=== PATIENT | male | born 1965 | race Caucasian/White ===

== ENCOUNTER 2023-02-26 18:57 | Inpatient (IN) | payer MEDICAID ==
[2023-02-26 19:31] LABS: BASOPHILS % (AUTO) 0.4 %; EOSINOPHILS % (AUTO) 0.4 %; LYMPHOCYTES # (AUTO) 1.9 10^3/uL (1.5-3.5); LYMPHOCYTES % (AUTO) 17.6 %; MEAN CORPUSCULAR HEMOGLOBIN 23.9 pg (27.0-31.0); MEAN CORPUSCULAR HGB CONC 25.8 g/dL (32.0-36.0); MEAN CORPUSCULAR VOLUME 92.6 fL (80.0-94.0); MEAN PLATELET VOLUME 9.9 fL (7.4-11.4); MONOCYTES # (AUTO) 1.3 10^3/uL (0.0-1.0); MONOCYTES % (AUTO) 12.5 %; NEUTROPHILS # (AUTO) 7.3 10^3/uL (1.5-6.6); NEUTROPHILS % (AUTO) 68.4 %; PLT - PLATELET COUNT 139 10^3/uL (130-450); RED BLOOD COUNT 1.63 10^6/uL (4.70-6.10); RED CELL DISTRIBUTION WIDTH 33.6 % (12.0-15.0); WHITE BLOOD COUNT 10.6 x10^3/uL (4.8-10.8)
--- NOTE | 2023-02-26 19:31 | ED Physician Documentation ---
History of Present Illness - Stated complaint Stated Complaint: VOMITING - Chief complaint Chief Complaint: General - History obtained from History obtained from: Patient - Additonal information Additional information: This is a 57-year-old male who has a past medical history of alcoholism, who drinks approximately a pint of hard alcohol daily, who presents from the clinic due to concerns for jaundice, nausea and vomiting, hiccups, and fatigue. The patient had presented to an outside clinic where he was noted to be jaundiced and There is concern for dehydration as he was sent to the ER.. The patient states that he was not aware of the jaundice though his son (who he later states is not his son, but a friend) had pointed it out to him within the last week or so. He is unsure when it may have started. Over the course of the last week he has felt frequent hiccups and has had frequent episodes of nausea and vomiting. He has had coffee-ground emesis with his vomiting and is unsure of how many times he vomited. He has felt very weak and States he cannot walk more than 150 feet without feeling extremely exhausted. He denies any abdominal pain however and has not had a fever or chills, no chest pain or difficulty breathing, no diarrhea or constipation. He is incontinent of urine frequently With urgency and frequency but denies any dysuria or hematuria, no flank pain. The patient states he has had ultrasound on his liver in the past and has been told that he had fatty liver but to his knowledge He did not have cirrhosis. He Has never had an endoscopy, no known varices Though he has never seen a GI doctor. He has drank heavily for many years, previously did drink more and then stopped for period of time and then started again A year or 2 ago though at a lower amount. He has never had significant alcohol withdrawal and no alcohol withdrawal seizures.He states he drinks alcohol because he has severe underlying anxiety and it is the only thing that seems to help him.He denies any other drug use. Patient denies any other medical history, is not on any medications. He has not been seen for care in the area but states that he has received care in [place] in the past though not for alcohol or liver related issues. Review of Systems Constitutional: reports: Fatigue. denies: Fever, Chills, Myalgias, Weight Loss, Sweats Eyes: reports: Reviewed and negative Ears: reports: Reviewed and negative Nose: reports: Reviewed and negative Throat: reports: Reviewed and negative Cardiac: reports: Reviewed and negative Respiratory: reports: Reviewed and negative GI: reports: Abdominal Swelling, Nausea, Vomiting. denies: Abdominal Pain, Constipation, Diarrhea, Hematemesis, Bloody / black stool : reports: Frequency, Incontinent. denies: Dysuria, Hematuria Skin: reports: Other (Jaundice, Brown spots on his hands, easy bruising) Musculoskeletal: reports: Reviewed and negative Neurologic: reports: Generalized weakness. denies: Focal weakness, Numbness, Difficulty speaking, Near syncope, Syncope, Seizure, Confused, Altered mental status, Unresponsive, Headache, Head injury, LOC Psychiatric: reports: Anxiety. denies: Depressed, Suicidal, Homicidal, Hallucinations, Delusions Endocrine: reports: Reviewed and negative Immunocompromised: reports: Reviewed and negative PD PAST MEDICAL HISTORY - Past Medical History Past Medical History: Yes GI: Other (Fatty liver, suspected cirrhosis) Psych: Anxiety, Other (Alcoholism) - Present Medications Home Medications: Ambulatory Orders Medication Instructions Recorded Confirmed No Known Home Medications 02/26/23 02/26/23 - Allergies Allergies/Adverse Reactions: Allergies Allergy/AdvReac Type Severity Reaction Status Date / Time amoxicillin Allergy Hives Verified 02/26/23 21:27 PD ED PE NORMAL - Vitals Vital signs reviewed: Yes - General General: Alert and oriented X 3, No acute distress, Other (Jaundice, appears chronically ill, disheveled) - HEENT HEENT: Atraumatic, PERRL, EOMI, Moist mucous membranes, Other (Icteric) - Neck Neck: Supple, no meningeal sign, No adenopathy, No JVD - Cardiac Cardiac: No murmur, Strong equal pulses, Other (Tachycardic) - Respiratory Respiratory: No respiratory distress, Clear bilaterally - Abdomen Abdomen: Normal bowel sounds, Non tender, Non distended - Back Back: No CVA TTP, No spinal TTP - Derm Derm: Other (Jaundice, multiple bruises on arms, liver spots on the hands) - Extremities Extremities: No deformity, No tenderness to palpate, Normal ROM s pain, No edema, No calf tenderness / cord - Neuro Neuro: Alert and oriented X 3 Eye Opening: Spontaneous Motor: Obeys Commands Verbal: Oriented GCS Score: 15 - Psych Psych: Normal mood, Normal affect Results - Vitals Vitals: Vital Signs - 24 hr 02/26/23 02/26/23 02/26/23 19:09 20:01 21:12 Temperature 37.1 C 37.1 C Heart Rate 112 H 107 H Heart Rate [ 98 Monitoring electrodes] Respiratory 16 20 18 Rate Blood Pressure 126/65 122/54 L Blood Pressure 116/73 [Left] O2 Saturation 95 96 97 02/26/23 21:30 Temperature 37.1 C Heart Rate Heart Rate [ 94 Monitoring electrodes] Respiratory 20 Rate Blood Pressure Blood Pressure 118/76 [Left] O2 Saturation 97 Oxygen O2 Source Room air - Labs Labs: Laboratory Tests 02/26/23 02/26/23 02/26/23 19:24 19:24 19:24 WBC 10.6 RBC 1.63 L Hgb 3.9 L* Hct 15.1 L* MCV 92.6 MCH 23.9 L MCHC 25.8 L RDW 33.6 H Plt Count 139 MPV 9.9 Neut # (Auto) 7.3 H Lymph # (Auto) 1.9 [place] # (Auto) 1.3 H Eos # (Auto) 0.0 Baso # (Auto) 0.0 Absolute Nucleated RBC 0.00 Nucleated RBC % 0.0 Manual Slide Review Indicated Platelet Estimate NORMAL (130-450,000) Platelet Morphology NORMAL APPEARANCE RBC Morph Micro Appear 1+ ACANTHOCYTES PT 28.0 H INR 2.7 H Sodium 136 Potassium 2.9 L Chloride 101 Carbon Dioxide 21 Anion Gap 14.0 H BUN 12 Creatinine 0.8 Estimated GFR (MDRD) 99 Glucose 134 H Calcium 8.1 L Magnesium 1.6 L Total Bilirubin 9.1 H AST 67 H ALT 25 Alkaline Phosphatase 86 Total Protein 7.2 Albumin 2.0 L Globulin 5.2 H Albumin/Globulin Ratio 0.4 L Lipase 76 H Ethyl Alcohol 82.3 Blood Type Blood Type Recheck Antibody Screen Crossmatch IS Only 02/26/23 02/26/23 19:24 19:46 WBC RBC Hgb Hct MCV MCH MCHC RDW Plt Count MPV Neut # (Auto) Lymph # (Auto) [place] # (Auto) Eos # (Auto) Baso # (Auto) Absolute Nucleated RBC Nucleated RBC % Manual Slide Review Platelet Estimate Platelet Morphology RBC Morph Micro Appear PT INR Sodium Potassium Chloride Carbon Dioxide Anion Gap BUN Creatinine Estimated GFR (MDRD) Glucose Calcium Magnesium Total Bilirubin AST ALT Alkaline Phosphatase Total Protein Albumin Globulin Albumin/Globulin Ratio Lipase Ethyl Alcohol Blood Type O NEGATIVE Blood Type Recheck O NEGATIVE Antibody Screen NEGATIVE Crossmatch IS Only See Detail PD Medical Decision Making - ED course Complexity details: reviewed results, re-evaluated patient, considered differential, d/w patient, d/w licensed tax consultant ED course: 57-year-old male with a past medical history significant for chronic alcohol use presents with jaundice as well as nausea, vomiting, and weakness over the course of the last several weeks to months. He has had some hematemesis at home though none here. On arrival here, the patient is frail, chronically ill- appearing, jaundiced but awake and alert and conversant. We obtained labs which were significant for a hemoglobin of 3.9, platelets of 139. His chemistry is significant for a potassium of 2.9, magnesium of 1.6, bilirubin of 9.1 and add itional labs as above. There is concern for a upper GI bleed and the patient was started on Protonix as well as octreotide. He was consented for blood transfusion and 4 units of packed red blood cells were ordered and transfusion initiated. The patient was given IV magnesium and potassium replacement. Patient's MELD score was calculated at 26. I did discuss this case with the ED attending as well as our on-call surgeon, Dr. Bass who very kindly reviewed the case with me. Dr. Bass would like patient to receive transfusion before consideration of EGD and he is not available tomorrow for this procedure and patient may need possible banding, and additional GI consultation, therefore we will try to transfer the patient to a higher level of care. The patient currently is receiving PRBC transfusion as well as octreotide and Protonix and tolerating well. He has not had any ongoing hematemesis, he is hemodynamically stable. He has been signed out to the ED attending, Dr. Lopez, at the conclusion of my shift and is awaiting transfer to a facility with GI. We do not have an accepting facility yet. Departure - Departure Disposition: 02 Transfer Acute Care Hosp Clinical Impression: Liver disease due to alcohol, Acute blood loss anemia, Gastrointestinal hemorrhage with hematemesis, Hypomagnesemia, Hypokalemia
[2023-02-26 19:35] LABS: HCT - HEMATOCRIT 15.1 % (42.0-52.0); HGB - HEMOGLOBIN 3.9 g/dL (14.0-18.0)
[2023-02-26 19:38] LABS: INR 2.7 (0.8-1.2)
[2023-02-26] MEDS ORDERED: OCTREOTIDE 500 MCG in SODIUM CHLORIDE 0.9% 100ML 95 ML IV STA (19:48)
[2023-02-26] MEDS ORDERED: PANTOPRAZOLE 80 MG in SODIUM CHLORIDE 0.9% 100ML 100 ML IV STA (19:48)
[2023-02-26 20:05] LABS: PLATELET ESTIMATE, MANUAL NORMAL (130-450,000) (NORMAL); PLATELET MORPHOLOGY NORMAL APPEARANCE (NORMAL); SLIDE REVIEW? Indicated
[2023-02-26 20:12] LABS: ALBUMIN/GLOBULIN RATIO 0.4 (1.0-2.2); BILIRUBIN,TOTAL 9.1 mg/dL (0.2-1.0); CALCIUM 8.1 mg/dL (8.5-10.3); CREATININE 0.8 mg/dL (0.6-1.2); ETOH - ETHANOL 82.3 mg/dL; MAGNESIUM 1.6 mg/dL (1.7-2.8); POTASSIUM 2.9 mmol/L (3.5-5.0); TOTAL PROTEIN 7.2 g/dL (6.7-8.2)
[2023-02-26] MEDS ORDERED: POTASSIUM CHLOR 10 MEQ/100 ML 10 MEQ/100 ML BAG IV STA (20:35)
[2023-02-26] MEDS ORDERED: MAGNESIUM SULFATE 2 GRAM 2 GM/50 ML BAG IV ONE (20:35)
[2023-02-27 03:04] LABS: GLUCOSE, URINE (UA) NEGATIVE (NEGATIVE); KETONES,URINE (UA) NEGATIVE (NEGATIVE); LEUKOCYTE ESTERASE, URINE NEGATIVE (NEGATIVE); OCCULT BLOOD,URINE NEGATIVE (NEGATIVE); PH,URINE 5.5 PH (5.0-7.5); PROTEIN,URINE NEGATIVE (NEGATIVE)
[2023-02-27 03:09] LABS: CLARITY,URINE CLEAR (CLEAR)
[2023-02-27 03:12] LABS: BILIRUBIN,URINE NEGATIVE (NEGATIVE); ICTOTEST,URINE NEGATIVE
[2023-02-27] MEDS ORDERED: PHENobarbital 65 MG/ML VIAL IV STA (08:57)
[2023-02-27] MEDS ORDERED: LORazepam 2 MG/ML VIAL IVP STA (08:57)
[2023-02-27] MEDS ORDERED: SODIUM CHLORIDE 0.9% 1,000 ML IV STA (09:00)
[2023-02-27] MEDS ORDERED: OCTREOTIDE 500 MCG in SODIUM CHLORIDE 0.9% 100ML 95 ML IV STA (09:09)
[2023-02-27] MEDS ORDERED: cefTRIAXone 1 GM VIAL IVP STA (09:09)
[2023-02-27 09:42] LABS: HCT - HEMATOCRIT 24.4 % (42.0-52.0); HGB - HEMOGLOBIN 7.6 g/dL (14.0-18.0)
[2023-02-27 10:03] LABS: CALCIUM 7.9 mg/dL (8.5-10.3); CREATININE 0.7 mg/dL (0.6-1.2); MAGNESIUM 1.9 mg/dL (1.7-2.8); POTASSIUM 3.5 mmol/L (3.5-5.0)
[2023-02-27] MEDS ORDERED: LACTULOSE 10 GM /15 ML UDC PO STA (11:47)
--- NOTE | 2023-02-27 13:05 | ED Physician Documentation ---
ED Addendum - Addendum Addendum: 02/27/23 13:03 Please see prior notes. Briefly this is a 57-year-old alcoholic who came in for vomiting. Last night my partner had talked with the on-call surgeon, but he was not on-call today and did not know the capabilities of the surgeon who is on- call today. He has received 4 units of blood and has been on Protonix and octreotide drips. He is posttransfusion H&H came up appropriately. I spoke with Dr. Saldivar, the on-call surgeon who is happy to consult and do an endoscopy and also spoke with Dr. Duran at this time for admission Disposition: Admitted to ICU Condition: Serious
[2023-02-27] MEDS ORDERED: ONDANSETRON 4 MG/2 ML VIAL IVP PRN (13:40)
[2023-02-27] MEDS ORDERED: PHYTONADIONE 10 MG/ML AMP IVP STA (13:47)
[2023-02-27] MEDS ORDERED: PHYTONADIONE INJ (ADULT) 10 MG in SODIUM CHLORIDE 0.9% 50 ML IV STA (14:06)
--- NOTE | 2023-02-27 14:06 | HISTORY & PHYSICAL EXAMINATION ---
Chief Complaint - Chief Complaint Chief Complaint: episodes of bright red blood vomiting over the past month History of Present Illness - Admitted From Admitted From:: Emergency room - History Obtained From History obtained from: Patient and ER note - History of Present Illness HPI Comment/Other: This is a 57-year-old male with past medical history significant for alcohol dependence who drinks approximately a pint of rum daily sometimes varies. He presented to the emergency room with jaundice along with nausea vomiting intermittent vomiting of bright red blood more recently over the past few days. He denies any abdominal pain. He does note that over the past several months his abdomen is getting more distended. He does admit to intermittent black tarry stools. But none recently was noted by him. He has never gone through alcohol withdrawal program nor has history of GI bleeding. He presented to the emergency room with complaints of feeling very weak. He has not seen a doctor for many years. Labs are significant for initial hemoglobin of 3.9 and he was transfused 4 units of PRBCs and repeat hemoglobin is improved to7.6.Patient notes that his last dr ink was 2 days ago and his alcohol level in the emergency room was 88. INR is noted to be 2.7 with a PTT of 28.0 lipase 76 albumin 2.0 total bilirubin 9.1 alkaline phosphatase 86 ALT 25 AST 67 platelets 139 total protein 7.2. History - Past Medical History GI: reports: Other (Fatty liver, suspected cirrhosis) Psych: reports: Anxiety, Other (Alcoholism) MRSA Hx?: No Meds/Allgy - Home Medications Home Medications: Ambulatory Orders Medication Instructions Recorded Confirmed No Known Home Medications 02/26/23 02/26/23 - Allergies Allergies/Adverse Reactions: Allergies Allergy/AdvReac Type Severity Reaction Status Date / Time amoxicillin Allergy Hives Verified 02/26/23 21:27 Review of Systems - Gastrointestinal Gastrointestinal: reports: Abdominal distention, Black stools, Nausea, Asim blood emesis, Coffee grounds emesis, Poor appetite - Neurological Neurological: reports: General weakness - Psychiatric Psychiatric: reports: Anxiety - Other Findings Other Findings: All other systems are reviewed and are negative except for as in HPI. Exam - Vital Signs Reviewed Vital Signs: Yes Vital Signs: Vital Signs x48h Temp Pulse Pulse Resp BP BP Pulse Ox 02/27/23 13:24 37.1 C 83 18 131/79 H 92 02/27/23 12:03 85 18 114/74 89 L 02/27/23 11:33 36.7 C 84 16 113/73 90 L 02/27/23 11:20 83 16 123/74 90 L 02/27/23 10:58 85 18 122/76 92 02/27/23 10:57 36.7 C 85 18 122/76 92 02/27/23 10:39 36.6 C 86 18 122/76 92 02/27/23 10:26 88 20 125/79 93 02/27/23 09:55 87 18 126/78 90 L 02/27/23 09:19 83 18 135/74 H 91 L 02/27/23 08:33 37.2 C 79 18 116/74 94 02/27/23 08:07 83 18 122/76 91 L 02/27/23 08:06 83 18 122/76 90 L 02/27/23 06:30 88 126/75 95 02/27/23 06:29 36.9 C 87 19 124/68 96 02/27/23 06:10 37.3 C 94 18 120/74 96 - Physical Exam General Appearance: positive: Other (Patient is disheveled and is jaundiced. Patient is interactive and answers questions for the most part appropriately.) Eyes Bilateral: positive: Other (Scleral icterus present bilaterally) ENT: positive: Dry mucous membranes Neck: positive: Nml inspection Respiratory: positive: No respiratory distress Cardiovascular: positive: Tachycardia Abdomen: positive: Non-tender, Other (Distended but no tenderness to palpation) Back: positive: Nml inspection Skin: positive: Cyanosis, Other (Jaundiced) Neurologic/Psychiatric: positive: Oriented x3, Other (He does have some mild asterixis bilaterally) Conclusion/Plan - Problem List (1) Alcoholic hepatitis with ascites Conclusion/Plan: -Patient does have an elevated Madrey score but given his acute to subacute GI bleed patient is n.p.o. and would not be a candidate for steroids but will end up dosing pentoxifylline when is taking p.o. His moderate discriminate function is 87.3 suggesting poor prognosis. -We will check CT of abdomen and pelvis with IV contrast (2) Acute blood loss anemia Conclusion/Plan: -Appreciate general surgery consult who plans to take patient to the OR in a.m. sooner if there are acute problems -Patient was transfused and will monitor hemoglobin hematocrit and has remained remained stable since 4 units PRBC transfusions - will continue with IV octreotide drip along with IV Protonix drip. Also initiated Rocephin 1 g IV every 24 hours (3) Gastrointestinal hemorrhage with hematemesis Conclusion/Plan: See above for acute blood loss anemia which is secondary to gastrointestinal etiology -Patient will be covered with IV octreotide, IV Protonix and IV Rocephin for possibility of variceal bleed (4) Liver disease due to alcohol Conclusion/Plan: -Alcoholic liver disease and will check CT of abdomen with IV contrast -Patient does have ascites present also - will place on alcohol withdrawal protocol (5) Electrolyte abnormality Conclusion/Plan: Patient did present with hypokalemia and hypomagnesemia - will place on electrolyte repletion protocol and monitor labs (6) Hyperammonemia Conclusion/Plan: - will monitor ammonia level and mental status -Most likely elevated secondary to acute to subacute GI bleed (7) Elevated INR Conclusion/Plan: Secondary to liver disease. Given FFP and vitamin K in emergency room and will monitor need for further FFP. - Lab Results Fish Bones: 02/27/23 13:43 02/27/23 09:17 - EKG Results EKG Comparison: Other (EKG pending)
[2023-02-27] MEDS ORDERED: iohexoL-300 100 ML VIAL ONE (14:12)
[2023-02-27 14:18] LABS: CLARITY,URINE CLEAR (CLEAR); GLUCOSE, URINE (UA) NEGATIVE (NEGATIVE); KETONES,URINE (UA) TRACE mg/dL (NEGATIVE); LEUKOCYTE ESTERASE, URINE TRACE (NEGATIVE); NITRITE,URINE POSITIVE (NEGATIVE); OCCULT BLOOD,URINE NEGATIVE (NEGATIVE); PH,URINE 5.5 PH (5.0-7.5); PROTEIN,URINE TRACE mg/dL (NEGATIVE); UROBILINOGEN,URINE >=8.0 E.U./dL (NORMAL)
[2023-02-27 14:22] LABS: BILIRUBIN,URINE MODERATE (NEGATIVE); ICTOTEST,URINE POSITIVE
[2023-02-27 14:25] LABS: BACTERIA,URINE Few /HPF (None Seen); RBC,URINE 0-5 /HPF (0-5); SQUAMOUS EPITHELIAL CELL,UR RARE Squamous (<= Few); WBC,URINE 0-3 /HPF (0-3)
[2023-02-27] MEDS ORDERED: cefTRIAXone 1 GM in SODIUM CHLORIDE 0.9% MINIBAG 100 ML IV SCH (15:00)
--- NOTE | 2023-02-27 15:12 | PHARMACY PROGRESS NOTE ---
- Best Possible Medication History Admit Date and Time: 02/27/23 1340 Processed by: Nursing Medication History completed: Yes As the person ultimately responsible for medication therapy, providers are able to order a medication from an existing home medication list in [facility] via the "Reconcile Routine" prior to Confirmation of that medication by child support investigator. Such practice is discouraged except when the physician, in their clinical judgment, deems that a medical need exists for a medication without regard to previous use.
--- NOTE | 2023-02-27 15:13 | CONSULTATION NOTE ---
Surgery Consult - Admit Date Hospital Admission Date: 02/27/23 - Consult Date Consult Date: 02/27/23 - Chief Complaint Chief Complaint: Weakness, nausea, coffee ground emesis - Home Meds/Allergies Home Medications: Patient History Medication Instructions Recorded Confirmed No Known Home Medications 02/26/23 02/26/23 Allergies/Adverse Reactions: Allergies Allergy/AdvReac Type Severity Reaction Status Date / Time amoxicillin Allergy Hives Verified 02/26/23 21:27 - Vital Signs Vital Signs: Last Vital Signs Temp 98.7 F 02/27/23 13:24 Pulse 82 02/27/23 15:00 Resp 24 02/27/23 15:00 BP 119/83 H 02/27/23 15:00 Pulse Ox 93 02/27/23 15:00 O2 Flow Rate Intake & Output: Intake & Output 02/24/23 02/25/23 02/26/23 02/27/23 23:59 23:59 23:59 23:59 Intake Total 300 1155 Balance 300 1155 - Lab Results Result Diagrams: 02/27/23 13:43 02/27/23 09:17 - Consultation Note Consultation Note: General Surgery Consultation Note Assessment: 1) Acute on chronic anemia due to suspected UGI bleed 2) Liver cirrhosis 3) Alcoholism with hyperammonemia Recommendation: 1) IV PPI and Octreotide 2) Serial H&H, INR, Ammonia 3) NPO except ice chips until midnight, then NPO for procedure 4) CIWA protocol 5) EGD scheduled for tomorrow morning. This will give us some time to stabilize his anemia, reduce the hyperammonemia, correct the coagulopathy, and manage impending alcohol withdrawal. If he demonstrates active UGI bleeding tonight, emergent EGD will be offered. Consent: Kenn has been counseled for the procedure, it's indications, risks, benefits and expected outcome as well as alternative therapies. We specifically discussed risks associated with anesthesia, bleeding, aspiration. Active bleeding will be controlled with endoscopic hemostatic measures as needed. Kenn understands, agrees, and consents to the proposed operative strategy and requests that we proceed with the procedure as outlined in our discussion. <><><><><><><><><><> Reason for Consultation UGI bleed Chief Complaint Nausea, fatigue, coffee ground emesis SAGRARIO Hawk is a 57 year old male who has had several days of nausea, hiccups, and coffee ground emesis. He has been fatigued for weeks. He has been able to eat and denies hematemesis, hematochezia or melena recently but in the distant past (6 months ago) he admits to melena and emesis of blood. He drinks alcohol daily. While in [place] a year or so ago, he was advised to undergo EGD but he tells me he refused as they were not going to offer him sedation for the procedure. He took Omeprazole for several weeks but none since. He was seen in the out-patient clinic yesterday, was noted to be jaundiced, and was referred to our ED where he was found to be coagulopathic and profoundly anemic. He received 4 U PRBC and a unit of FFP along with IV Protonix and Octreotide. He has remained hemodynamically stable during this initial course of treatment, his Hgb has remained stable, and he was admitted to the ICU for on-going management. I was asked to consider upper endoscopy for diagnosis during this admission. Past Medical History Denies TIA, CVA, Cardiac or renal issues. No kidney problems. No recent colonoscopy but did have a negative stool test for polyps recently Fractured ribs Past Surgical History None Social History Drinks alcohol daily, Does not smoke cigarettes Current Medications No home meds Allergies Amoxicillin - rash ROS Pertinent positives Nausea, coffee ground emesis, fatigue, hiccups All other reviewed systems negative Other Labs INR 2.7 T Bili 1.9 Ammonia 85.3 Physical Examination Vital Signs: Normal - see above GENERAL APPEARANCE: Normal development, normal body habitus, normal grooming PSYCHIATRIC: AAO; Comfortable EYES: Pupils equal, round and reactive to light, sclera icteric EARS, NOSE, MOUTH, THROAT: Hearing normal, Oral mucous membranes moist and without lesions; NECK: No crepitus, lymphadenopathy, or thyromegaly LUNGS: Clear to auscultation without wheezing; No use of accessory muscles to breathe CARDIOVASCULAR: Heart-NSR without murmurs; Palpable carotid arteries - no bruits; Femoral, Pedal pulses palpable; Peripheral edema absent ABD: Soft, non-tender, ascites present; Liver edge not palpable LYMPHATIC: Neck, Axillae, Groin no palpable adenopathy EXTREMITIES: No clubbing, cyanosis, infections; 7 cm x 3 cm irregular eschar left cooley without infection; blotchy ecchymosis upper extremities SKIN: Anicteric; No rashes, lesions, Ulcerations Andre Saldivar MD, [facility] General Surgery Service [phone]
--- NOTE | 2023-02-27 15:28 | CT Report ---
PROCEDURE: ABDOMEN/PELVIS W INDICATIONS: GI Bleed,liver failure CONTRAST: 100ml omni 300 TECHNIQUE: After the administration of IV contrast, 5 mm thick sections acquired from the diaphragms to the symp hysis. 5 mm thick coronal and sagittal reformats were acquired. For radiation dose reduction, the f ollowing was used: automated exposure control, adjustment of mA and/or kV according to patient size. COMPARISON: None FINDINGS: Image quality: Excellent. Lung bases and heart: Moderate sized bibasilar pleural effusions. Reticular and groundglass airspace disease anteriorly in the lungs. Small consolidation at the right lung base. There are extensive distal esophageal varices. No hiatal hernia. The heart size is normal without per icardial effusion. Liver: Cirrhotic morphology. No visible enhancing mass. Gallbladder and biliary tree: Distended gallbladder without wall thickening. Nondilated biliary tree. Spleen: Normal size spleen. Pancreas: Normal. Adrenals: No adrenal nodule. Kidneys and ureters: Symmetric enhancement without hydronephrosis. No hydroureter. Bowel and peritoneum: There is solid stool present in the distal colon. Mild sigmoid diverticulosis. No small bowel obstruction. The stomach demonstrates mucosal hyperemia and is largely decompressed. T here is mild circumferential long segment wall thickening of the duodenum. This is likely reactive as there is no focal inflammation. Moderate to large amount of diffuse ascites. Lymph nodes: No central or retroperitoneal adenopathy. Vessels: There are several upper abdominal varices. The splenic vein is opacified but diminutive at t he hilum. There is not yet recanalization of the umbilical vein. PELVIS Reproductive organs: Unremarkable. Bladder: No abnormal wall thickening, accounting for underdistension. Pelvic lymph nodes: No pelvic adenopathy by size criteria. Bones: No aggressive osseous abnormality. Other: No significant ventral or inguinal hernia. IMPRESSION: 1. Distal esophageal varices may contribute to upper GI bleeding. 2. Cirrhotic liver morphology and evidence of portal hypertension. 3. Bibasilar pleural effusions and mild bibasilar airspace disease. Reviewed by: Chloé Yeboah MD on 02/27/2023 2:27 PM REGGIE Approved by: Chloé Yeboah MD on 02/27/2023 2:27 PM AKDT Station ID: [id number]
[2023-02-27] MEDS: SODIUM CHLORIDE FLUSH 0.9% 10 ML SYRINGE IVP SCH (15:50)
[2023-02-27] MEDS: PANTOPRAZOLE 80 MG in SODIUM CHLORIDE 0.9% 100ML 100 ML IV SCH (15:50)
[2023-02-27] MEDS ORDERED: iohexoL-300 100 ML VIAL IVP ONE (16:06)
[2023-02-27] MEDS: OCTREOTIDE 500 MCG in SODIUM CHLORIDE 0.9% 100ML 99 ML IV SCH (16:23)
[2023-02-27 21:21] LABS: CALCIUM, IONIZED 1.06 mmol/L (1.15-1.33); VBG PH 7.497 (7.31-7.41)
[2023-02-27 21:24] LABS: MAGNESIUM 1.9 mg/dL (1.7-2.8); PHOSPHORUS 3.9 mg/dL (2.5-4.6); POTASSIUM 3.2 mmol/L (3.5-5.0)
[2023-02-27] MEDS ORDERED: CALCIUM GLUC 1,000MG/50ML-NACL 1,000 MG/50 ML BAG IV ONE (21:37)
[2023-02-27] MEDS: POTASSIUM CHLOR 10 MEQ/100 ML 10 MEQ/100 ML BAG IV SCH ×3 (21:57→23:49)
[2023-02-27] MEDS: SODIUM CHLORIDE 0.9% 1,000 ML IV SCH (23:01)
[2023-02-28] MEDS: POTASSIUM CHLOR 10 MEQ/100 ML 10 MEQ/100 ML BAG IV SCH ×3 (00:44→08:36)
[2023-02-28] MEDS: PANTOPRAZOLE 80 MG in SODIUM CHLORIDE 0.9% 100ML 100 ML IV SCH ×2 (00:46→10:14)
[2023-02-28] MEDS: OCTREOTIDE 500 MCG in SODIUM CHLORIDE 0.9% 100ML 99 ML IV SCH (00:47)
[2023-02-28] MEDS: SODIUM CHLORIDE FLUSH 0.9% 10 ML SYRINGE IVP SCH ×3 (00:48→15:59)
[2023-02-28] MEDS: SODIUM CHLORIDE 0.9% 1,000 ML IV SCH ×2 (01:31→08:38)
[2023-02-28] MEDS: LORazepam 2 MG/ML VIAL IVP PRN (04:38)
[2023-02-28 05:25] LABS: BASOPHILS # (AUTO) 0.1 10^3/uL (0.0-0.1); BASOPHILS % (AUTO) 0.9 %; EOSINOPHILS # (AUTO) 0.3 10^3/uL (0.0-0.7); EOSINOPHILS % (AUTO) 2.8 %; HCT - HEMATOCRIT 24.3 % (42.0-52.0); HGB - HEMOGLOBIN 7.5 g/dL (14.0-18.0); LYMPHOCYTES # (AUTO) 1.3 10^3/uL (1.5-3.5); LYMPHOCYTES % (AUTO) 13.1 %; MEAN CORPUSCULAR HEMOGLOBIN 27.6 pg (27.0-31.0); MEAN CORPUSCULAR HGB CONC 30.9 g/dL (32.0-36.0); MEAN CORPUSCULAR VOLUME 89.3 fL (80.0-94.0); MONOCYTES # (AUTO) 0.9 10^3/uL (0.0-1.0); NEUTROPHILS # (AUTO) 7.1 10^3/uL (1.5-6.6); NEUTROPHILS % (AUTO) 73.5 %; NRBC ABSOLUTE COUNT (AUTO) 0.02 x10^3/uL; NUCLEATED RED BLOOD CELLS AUTO 0.2 /100WBC; PLT - PLATELET COUNT 82 10^3/uL (130-450); RED BLOOD COUNT 2.72 10^6/uL (4.70-6.10); RED CELL DISTRIBUTION WIDTH 22.5 % (12.0-15.0); WHITE BLOOD COUNT 9.7 x10^3/uL (4.8-10.8)
[2023-02-28 05:29] LABS: PLATELET ESTIMATE, MANUAL DECREASED (<130,000) (NORMAL); PLATELET MORPHOLOGY NORMAL APPEARANCE (NORMAL); RBC MORPHOLOGY (MULTIPLE) 2+ ANISOCYTOSIS (NORMAL); SLIDE REVIEW? Indicated; WBC MORPHOLOGY (MULTIPLE) NORMAL APPEARANCE (NORMAL)
[2023-02-28 05:34] LABS: CALCIUM, IONIZED 1.08 mmol/L (1.15-1.33); VBG PH 7.498 (7.31-7.41)
[2023-02-28 05:36] LABS: INR 2.6 (0.8-1.2)
[2023-02-28] MEDS ORDERED: CALCIUM GLUC 1,000MG/50ML-NACL 1,000 MG/50 ML BAG IV ONE ×2 (05:36→14:34)
[2023-02-28 05:42] LABS: ALBUMIN 1.8 g/dL (3.2-5.5); ALBUMIN/GLOBULIN RATIO 0.4 (1.0-2.2); CALCIUM 7.7 mg/dL (8.5-10.3); CREATININE 0.7 mg/dL (0.6-1.2); MAGNESIUM 1.8 mg/dL (1.7-2.8); PHOSPHORUS 3.9 mg/dL (2.5-4.6); POTASSIUM 3.8 mmol/L (3.5-5.0); TOTAL PROTEIN 6.4 g/dL (6.7-8.2)
[2023-02-28 05:43] LABS: PARTIAL THROMBOPLASTIN TIME 38.8 secs (24.9-33.3)
--- NOTE | 2023-02-28 07:04 | PROVIDER PROGRESS NOTE ---
Progress Note General Surgery Progress Note Kenn has had an uneventful evening although he was given a single dose of Ativan about 90 minutes ago for agitation. He has not experienced nausea, hematemesis, or abdominal pain. His VS are stable He remains profoundly jaundiced, more so than yesterday His abdomen is distended but soft consistent with ascites His CT scan identified distal esophageal varices, gastric mucosal hyperemia, duodenal wall thickening, and ascites This morning's labs are as follows: T. Bili 12.0 Alb 1.8 Hgb 7.5 (no significant change since the transfusion of 4 U PRBC and 1 U FFP) Plt 82,000 (decreased from admission) INR 2.6 (unchanged from admission) Assessment: 1) Blood loss anemia - suspect UGI source. Not yet certain if this is due to gastritis or a recent variceal bleed 2) Decompensated liver cirrhosis 3) Thrombocytopenia 4) Coagulopathy 5) Alcohol withdrawal risk Recommendation: 1) Diagnostic EGD this morning. If there is active or evidence of a recent variceal bleed, variceal banding will be performed. 2) If the blood loss is due to gastritis or peptic ulceration and there is no evidence of active bleeding, PPI, carafate, and other antacids will be recommended. Active bleeding will be managed with clips, cautery and/or injection. 3) Treatment with B-Blockers should be considered to decrease the risk of variceal bleeding until that time when his coagulopathy and thrombocytopenia have been corrected at which point prophylactic variceal banding (multiple sessions over several weeks) can be arranged. I discussed once again the procedure, its indications, risks, and expected outcomes with Kenn. He agrees and has given consent to proceed. Andre Saldivar MD General Surgery Service [phone]
[2023-02-28] MEDS ORDERED: MAGNESIUM SULFATE 2 GRAM 2 GM/50 ML BAG IV ONE (07:12)
[2023-02-28] MEDS ORDERED: PROPOFOL 200 MG/20 ML VIAL IVP ONE (07:29)
[2023-02-28] MEDS ORDERED: MIDAZOLAM 2 MG/2 ML VIAL ONE (07:29)
[2023-02-28] MEDS ORDERED: LIDOCAINE-MPF 2% 5 ML VIAL ONE (07:41)
--- NOTE | 2023-02-28 07:42 | ANESTHESIA ---
Pre-Anesthesia VS, & Labs - Diagnosis upper GI bleed - Procedure EGD Vital Signs: Temp Pulse Resp BP Pulse Ox O2 Flow Rate 37.2 C 91 20 116/78 95 2 02/28/23 05:00 02/28/23 07:00 02/28/23 07:00 02/28/23 07:00 02/28/23 07:00 02/28/23 05:00 Height: 5 ft 3 in Weight (kg): 70.5 kg Body Mass Index: 27.5 BMI Classification: Overweight - NPO >8 hours - Lab Results Current Lab Results: Laboratory Tests 02/28/23 05:16: VBG pH 7.498 H, Ionized Calcium 1.08 L 02/28/23 05:16: Ammonia 86.3 H* 02/28/23 05:16: Sodium 137, Potassium 3.8, Chloride 107, Carbon Dioxide 24, Anion Gap 6.0, BUN 11, Creatinine 0.7, Estimated GFR (MDRD) 115, Glucose 109 H, Calcium 7.7 L, Phosphorus 3.9, Magnesium 1.8, Total Bilirubin 12.0 H, AST 48 H, ALT 19, Alkaline Phosphatase 65, Total Protein 6.4 L, Albumin 1.8 L, Globulin 4.6 H, Albumin/Globulin Ratio 0.4 L 02/28/23 05:16: PT 27.0 H, INR 2.6 H, APTT 38.8 H 02/28/23 05:16: WBC 9.7, RBC 2.72 L, Hgb 7.5 L, Hct 24.3 L, MCV 89.3, MCH 27.6, MCHC 30.9 L, RDW 22.5 H, Plt Count 82 L, MPV 10.0, Neut # (Auto) 7.1 H, Lymph # (Auto) 1.3 L, Walsh # (Auto) 0.9, Eos # (Auto) 0.3, Baso # (Auto) 0.1, Absolute Nucleated RBC 0.02, Nucleated RBC % 0.2, Manual Slide Review Indicated, WBC Morphology NORMAL APPEARANCE, Platelet Estimate DECREASED (<130,000), Platelet Morphology NORMAL APPEARANCE, RBC Morph Micro Appear 2+ ANISOCYTOSIS 02/27/23 23:26: POC Whole Bld Glucose 113 H 02/27/23 21:02: VBG pH 7.497 H, Ionized Calcium 1.06 L 02/27/23 21:02: Potassium 3.2 L, Phosphorus 3.9, Magnesium 1.9 02/27/23 21:02: Hgb 8.3 L 02/27/23 18:18: POC Whole Bld Glucose 104 H 02/27/23 13:43: Troponin I High Sens 13.5 02/27/23 13:43: Hgb 7.6 L 02/27/23 09:17: Sodium 137, Potassium 3.5, Chloride 104, Carbon Dioxide 25, Anion Gap 8.0, BUN 12, Creatinine 0.7, Estimated GFR (MDRD) 115, Glucose 121 H, Calcium 7.9 L, Magnesium 1.9 02/27/23 09:17: Ammonia 85.3 H* 02/27/23 09:17: Hgb 7.6 L, Hct 24.4 L 02/26/23 19:46: Blood Type O NEGATIVE, Antibody Screen NEGATIVE, Crossmatch IS Only See Detail 02/26/23 19:24: Blood Type Recheck O NEGATIVE 02/26/23 19:24: Sodium 136, Potassium 2.9 L, Chloride 101, Carbon Dioxide 21, Anion Gap 14.0 H, BUN 12, Creatinine 0.8, Estimated GFR (MDRD) 99, Glucose 134 H , Calcium 8.1 L, Magnesium 1.6 L, Total Bilirubin 9.1 H, AST 67 H, ALT 25, Alkaline Phosphatase 86, Total Protein 7.2, Albumin 2.0 L, Globulin 5.2 H, Albumin/Globulin Ratio 0.4 L, Lipase 76 H, Ethyl Alcohol 82.3 02/26/23 19:24: PT 28.0 H, INR 2.7 H 02/26/23 19:24: WBC 10.6, RBC 1.63 L, Hgb 3.9 L*, Hct 15.1 L*, MCV 92.6, MCH 23.9 L, MCHC 25.8 L, RDW 33.6 H, Plt Count 139, MPV 9.9, Neut # (Auto) 7.3 H, Lymph # (Auto) 1.9, Walsh # (Auto) 1.3 H, Eos # (Auto) 0.0, Baso # (Auto) 0.0, Absolute Nucleated RBC 0.00, Nucleated RBC % 0.0, Manual Slide Review Indicated, Platelet Estimate NORMAL (130-450,000), Platelet Morphology NORMAL APPEARANCE, RBC Morph Micro Appear 1+ ACANTHOCYTES Fish Bones: 02/28/23 05:16 02/28/23 05:16 Home Medications and Allergies Home Medications: Ambulatory Orders No Known Home Medications 02/26/23 Active Medications Pantoprazole Sodium 80 mg/ (Sodium Chloride) 100 mls @ 10 mls/hr IV .Q10H ANDREW Last Infusion: 02/28/23 06:00 Dose: 10 mls/hr Thiamine HCl 100 mg/ Sodium (Chloride) 101 mls @ 100 mls/hr IV DAILY ANDREW Octreotide Acetate 500 mcg/ (Sodium Chloride) 100 mls @ 10 mls/hr IV .Q10H ANDREW Last Infusion: 02/28/23 06:00 Dose: 50 mcg/hr, 10 mls/hr Ceftriaxone Sodium 1 gm/ (Sodium Chloride) 100 mls @ 200 mls/hr IV DAILY ANDREW Sodium Chloride (Normal Saline 0.9%) 1,000 mls @ 100 mls/hr IV .Q10H ANDREW Last Infusion: 02/28/23 06:00 Dose: 100 mls/hr Potassium Chloride (Potassium Chloride) 10 meq in 100 mls @ 100 mls/hr IV Q1H ANDREW; Protocol Stop: 02/28/23 08:59 Last Admin: 02/28/23 06:54 Dose: 100 mls/hr Magnesium Sulfate (Magnesium Sulfate) 2 gm in 50 mls @ 50 mls/hr IV ONCE ONE; Protocol Stop: 02/28/23 08:11 Lorazepam (Lorazepam 2 Mg/Ml Vial) 2 - 20 mg IVP Q15M PRN; Protocol PRN Reason: RASS > 0 Last Admin: 02/28/23 04:38 Dose: 2 mg Ondansetron HCl (Ondansetron 4 Mg/2 Ml Vial) 4 mg IVP Q6HR PRN PRN Reason: Nausea / Vomiting Sodium Chloride (Sodium Chloride Flush 0.9% 10 Ml Syringe) 10 ml IVP 0100,0900,1700 ANDREW Last Admin: 02/28/23 00:48 Dose: 10 ml Sodium Chloride (Sodium Chloride Flush 0.9% 10 Ml Syringe) 10 ml IVP PRN PRN PRN Reason: NEEDED PER PROVIDER ORDERS No Known Home Medications 02/26/23 Allergies/Adverse Reactions: Allergies Allergy/AdvReac Type Severity Reaction Status Date / Time amoxicillin Allergy Hives Verified 02/26/23 21:27 Anes History & Medical History - Anesthetic History Anesthesia Complications: reports: No previous complications, Emergence delirium Family history of Anesthesia Complications: Denies Family history of Malignant Hyperthermia: Denies - Medical History Cardiovascular: reports: Hypertension, High cholesterol Pulmonary: reports: Pneumonia Gastrointestinal: reports: GERD, Esophageal varices, GI bleed, Other Urinary: reports: None Neuro: reports: Head injury Musculoskeletal: reports: Gout Endocrine/Autoimmune: reports: None Blood Disorders: reports: None Skin: reports: None Smoking Status: Never smoker Psychosocial: reports: Anxiety, Substance abuse, Alcohol History of Cancer?: No Other Past Medical History: " Fatty liver"-- GI bleeding Exam General: Oriented x3, Cooperative Dental: Loose/Frag, Poor dentition Mouth Openin Fingerbreadth Neck Mobility: Normal Mallampati classification: II Respiratory: Lungs clear, Decreased breath sounds Cardiovascular: Regular rate Neurological: Normal speech Mental/Cognitive Status: Alert/Oriented X3, Lethargic Cognitive Status: Drug/alcohol affected Plan Anesthesia Type: Total IV Consent for Procedure(s) Verified and Reviewed: Yes Code Status: Attempt Resuscitation ASA classification: 3-Severe systemic disease Is this case an emergency?: Yes
[2023-02-28] MEDS: cefTRIAXone 1 GM in SODIUM CHLORIDE 0.9% MINIBAG 100 ML IV SCH (08:37)
--- NOTE | 2023-02-28 08:40 | ANESTHESIA POST OP EVALUATION ---
Anesthesia Post Eval - Post Anesthesia Eval Vitals: Last Vital Signs Temp 37.1 C 02/28/23 08:29 Pulse 94 02/28/23 08:29 Resp 21 02/28/23 08:29 BP 111/76 02/28/23 08:29 Pulse Ox 94 02/28/23 08:29 O2 Flow Rate 6 02/28/23 08:29 CV Function Including HR & BP: Stable Pain Control: Satisfactory Nausea & Vomiting: Negative Mental Status: Baseline (drowsy, Ativan/Versed pre procedure) Respiratory Status: Airway Patent Hydration Status: Satisfactory Anesthesia Complications: None
[2023-02-28] MEDS ORDERED: THIAMINE INJ 100 MG in SODIUM CHLORIDE 0.9% 100 ML IV SCH (09:00)
--- NOTE | 2023-02-28 09:07 | PROVIDER PROGRESS NOTE ---
Progress Note Brief Post-procedure note. See Provation for details Kenn has small, lower third esophageal varices that were not actively bleeding nor did they show signs of a recent bleed. Esophagitis with whitish streaks of plaque were present in the middle and lower third of the esophagus. The mucosa was friable and bled a little when biopsy of the whitish plaque was performed. The stomach was without overt gastritis but there was mucosal edema and friability. The 1st and 2nd portion of the duodenum were normal. There was no old or new blood in the esophagus, stomach, or duodenum. Kenn certainly has esophageal varices due to his cirrhosis but they are not currently the reason for his anemia and GI blood loss. His friable esophagitis, due either to batsheva or gastro-esophageal reflux along with his coagulopathy is the likely combination to explain his presenting symptoms. He may now be started on a clear liquid diet. His nutritional status needs attention. I would also recommend aggressive management of his liver decompensation to include continuation of his octreotide and perhaps starting a beta supriya to reduce the risk of variceal bleeding. In addition, I recommend starting Diflucan as this works better than Nystatin for batsheva esophagitis. Continuation of a PPI, mylata, Tums, etc is also advised. I see no need for Carafate at this point in time. Luis Eduardo Saldivar MD General Surgery Service [phone]
[2023-02-28] MEDS: SUCRALFATE 1 GM/10 ML UDC PO SCH ×3 (10:13→21:06)
[2023-02-28] MEDS: nadoloL 20 MG TABLET PO SCH (10:13)
[2023-02-28] MEDS: FLUCONAZOLE 100 MG TABLET PO SCH (10:15)
[2023-02-28] MEDS: PANTOPRAZOLE 40 MG TABLET PO SCH ×2 (11:04→21:06)
--- NOTE | 2023-02-28 12:23 | PROVIDER PROGRESS NOTE ---
Assessment/Plan - Problem List (1) Alcoholic hepatitis with ascites Assessment/Plan: Conclusion/Plan: -Patient does have an elevated Madrey score but given his acute to subacute GI bleed patient is n.p.o. and would not be a candidate for steroids but will end up dosing pentoxifylline when is taking p.o. His Maddrey discriminate function is 87.3 suggesting poor prognosis. - will check CT of abdomen and pelvis with IV contrast Which did show some distal esophageal varices ascites present cirrhotic liver -Consider therapeutic tap of ascites when IR is available. Of note patient has no abdominal pain nor any sign of infectious process (2) Acute blood loss anemia Conclusion/Plan: -Appreciate general surgery consult who plans to take patient to the OR in a.m. sooner if there are acute problems -Patient was transfused and will monitor hemoglobin hematocrit and has remained remained stable since 4 units PRBC transfusions - will continue with IV octreotide drip along with IV Protonix drip. Also initiated Rocephin 1 g IV every 24 hours February 28, 2023-patient had EGD done this a.m. which did not show any active bleeding but there is a friable mucosa of the esophagus and stomach there are distal esophageal varices which are not bleeding. Also possible candidiasis noted in the esophagus. Will initiate p.o. Diflucan p.o. Protonix and DC IV Protonix and IV octreotide and IV Rocephin also placed on Carafate and initiate clear liquid diet. 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 Given FFP and vitamin K in emergency room and will monitor need for further FFP. - Current Meds Current Meds: Current Medications Generic Name Dose Route Start Last Admin Trade Name Melissa PRN Reason Stop Dose Admin Fluconazole 400 mg 02/28/23 09:00 02/28/23 10:15 Fluconazole 100 Mg Tablet PO 400 mg DAILY ANDREW Administration Thiamine HCl 100 mg/ Sodium 101 mls @ 100 mls/hr 02/28/23 09:00 02/28/23 10:05 Chloride IV Infused DAILY ANDREW Infusion Octreotide Acetate 500 mcg/ 100 mls @ 10 mls/hr 02/27/23 20:00 02/28/23 10:14 Sodium Chloride IV 0 mcg/hr .Q10H ANDREW 0 mls/hr Infusion 50 MCG/HR Ceftriaxone Sodium 1 gm/ 100 mls @ 200 mls/hr 02/28/23 09:00 02/28/23 09:25 Sodium Chloride IV Infused DAILY ANDREW Infusion Sodium Chloride 1,000 mls @ 100 mls/hr 02/27/23 23:00 02/28/23 08:38 Normal Saline 0.9% IV 100 mls/hr .Q10H ANDREW Administration Lorazepam 2 - 20 mg 02/27/23 13:47 02/28/23 04:38 Lorazepam 2 Mg/Ml Vial IVP 2 mg Q15M PRN Administration RASS > 0 Protocol Nadolol 20 mg 02/28/23 10:00 02/28/23 10:13 Nadolol 20 Mg Tablet PO 20 mg DAILY ANDREW Administration Pantoprazole Sodium 40 mg 02/28/23 11:00 02/28/23 11:04 Pantoprazole 40 Mg Tablet PO 40 mg BID ANDREW Administration Sodium Chloride 10 ml 02/27/23 17:00 02/28/23 08:37 Sodium Chloride Flush 0.9% 10 Ml Syringe IVP 10 ml 0100,0900,1700 ANDREW Administration Sucralfate 1 gm 02/28/23 11:00 02/28/23 10:13 Sucralfate 1 Gm/10 Ml Udc PO 1 gm 0700,1100,1600,2200 ANDREW Administration - Lab Result Fish Bone Diagrams: 02/28/23 05:16 02/28/23 05:16 - Additional Planning My Orders: My Active Orders 02/27/23 13:25 Galindo Insertion [RC] QSHIFT 02/27/23 13:40 Activity Orders [RC] Q2HR Daily Weight [RC] 0600 IO [RC] Q1HR Initiate Bowel Care Protocol [RC] QSHIFT Initiate Line Care Protocol [RC] .protocol Initiate Personal Care Protoco [RC] .protocol Telemetry- [RC] Q4HR Ondansetron Inj [Zofran Inj] 4 mg IVP Q6HR PRN Sodium Chloride Flush 0.9% [Normal Saline Flush 0.9%] 10 ml IVP PRN PRN Code Status [OTHERS] Routine Condition of Patient [OTHERS] Routine 02/27/23 13:47 CIWA - AR Score Card [RC] Q4HR Vital Signs [RC] Q2HR LORazepam INJ [Ativan Inj (Vial)] 2 - 20 mg IVP Q15M PRN 02/27/23 13:50 Social Work Consult [CONS] Routine 02/27/23 14:04 CUL, URINE [RM] Routine 02/27/23 14:21 Electrolyte [Initiate ICU Electrolyte Prot.] [RC] QSHIFT 02/27/23 17:00 Sodium Chloride Flush 0.9% [Normal Saline Flush 0.9%] 10 ml IVP 0100,0900,1700 02/27/23 20:00 Sodium Chloride 0.9% 100Ml [Normal Saline 0.9% 100Ml] 99 ml Octreotide [SandoSTATIN] 500 mcg IV 50 mcg/hr 02/28/23 09:00 Fluconazole [Diflucan] 400 mg PO DAILY Thiamine Inj [Vitamin B-1 Inj] 100 mg Sodium Chloride 0.9% [Normal Saline 0.9%] 100 ml IV DAILY cefTRIAXone [Rocephin] 1 gm Sodium Chloride 0.9% Minibag [Normal Saline 0.9% Minibag] 100 ml IV DAILY 02/28/23 10:00 nadoloL [Corgard] 20 mg PO DAILY 02/28/23 11:00 Pantoprazole [Protonix] 40 mg PO BID Sucralfate [Carafate] 1 gm PO 0700,1100,1600,2200 02/28/23 Lunch Clear Liquid Diet [DIET] 02/28/23 14:00 CALCIUM, IONIZED ([facility]) [BG] Timed MAGNESIUM [CHEM] Timed PHOSPHORUS [CHEM] Timed POTASSIUM [CHEM] Timed 03/01/23 05:00 AMMONIA [CHEM] DAILYLAB CALCIUM, IONIZED ([facility]) [BG] DAILYLAB COMPREHENSIVE METABOLIC PANEL [CHEM] DAILYLAB MAGNESIUM [CHEM] DAILYLAB PARTIAL THROMBOPLASTIN TIME [COAG] DAILYLAB PHOSPHORUS [CHEM] DAILYLAB PT WITH INR [COAG] DAILYLAB 03/02/23 05:00 AMMONIA [CHEM] DAILYLAB CALCIUM, IONIZED ([facility]) [BG] DAILYLAB COMPREHENSIVE METABOLIC PANEL [CHEM] DAILYLAB MAGNESIUM [CHEM] DAILYLAB PARTIAL THROMBOPLASTIN TIME [COAG] DAILYLAB PHOSPHORUS [CHEM] DAILYLAB PT WITH INR [COAG] DAILYLAB 03/03/23 05:00 COMPREHENSIVE METABOLIC PANEL [CHEM] DAILYLAB PARTIAL THROMBOPLASTIN TIME [COAG] DAILYLAB PT WITH INR [COAG] DAILYLAB Subjective - Subjective Patient Reports: Other (Patient went to the OR today for upper endoscopy and returned to ICU somewhat drowsy postoperatively.) Objective Vital Signs: Vital Signs - 24 hr 02/27/23 02/27/23 02/27/23 13:24 15:00 15:50 Temperature 37.1 C 37.0 C Heart Rate 83 82 Heart Rate [ 76 Monitoring electrodes] Respiratory 18 24 15 Rate Blood Pressure 131/79 H 119/83 H Blood Pressure [Left Brachial] Blood Pressure 130/78 [Left] O2 Saturation 92 93 95 If not protocol : Oxygen Flow, liters/minute 02/27/23 02/27/23 02/27/23 17:00 19:00 20:00 Temperature Heart Rate Heart Rate [ 78 91 89 Monitoring electrodes] Respiratory 18 17 20 Rate Blood Pressure Blood Pressure [Left Brachial] Blood Pressure 133/79 H 137/85 H 127/80 [Left] O2 Saturation 94 95 92 If not protocol : Oxygen Flow, liters/minute 02/27/23 02/27/23 02/27/23 21:00 22:54 22:55 Temperature 37.3 C Heart Rate Heart Rate [ 87 Monitoring electrodes] Respiratory 19 18 18 Rate Blood Pressure Blood Pressure [Left Brachial] Blood Pressure 139/83 H [Left] O2 Saturation 94 89 L 96 If not protocol 2 : Oxygen Flow, liters/minute 02/27/23 02/27/23 02/28/23 23:00 23:30 01:00 Temperature 37.3 C Heart Rate Heart Rate [ 91 92 Monitoring electrodes] Respiratory 22 19 Rate Blood Pressure Blood Pressure 128/74 113/71 [Left Brachial] Blood Pressure [Left] O2 Saturation 94 94 If not protocol 2 2 : Oxygen Flow, liters/minute 02/28/23 02/28/23 02/28/23 02:53 05:00 07:00 Temperature 37.2 C Heart Rate Heart Rate [ 92 91 91 Monitoring electrodes] Respiratory 19 24 20 Rate Blood Pressure Blood Pressure 117/73 124/77 116/78 [Left Brachial] Blood Pressure [Left] O2 Saturation 94 95 95 If not protocol 2 : Oxygen Flow, liters/minute 02/28/23 02/28/23 02/28/23 07:51 08:29 08:45 Temperature 36.8 C 37.1 C Heart Rate Heart Rate [ 89 94 89 Monitoring electrodes] Respiratory 24 21 23 Rate Blood Pressure Blood Pressure 125/82 H 111/76 122/76 [Left Brachial] Blood Pressure [Left] O2 Saturation 95 94 100 If not protocol 2 6 6 : Oxygen Flow, liters/minute 02/28/23 02/28/23 02/28/23 09:00 09:15 09:30 Temperature 37 C Heart Rate Heart Rate [ 90 89 90 Monitoring electrodes] Respiratory 24 22 25 H Rate Blood Pressure Blood Pressure 125/80 124/69 123/77 [Left Brachial] Blood Pressure [Left] O2 Saturation 95 95 93 If not protocol 2 2 2 : Oxygen Flow, liters/minute 02/28/23 02/28/23 02/28/23 09:45 10:00 10:49 Temperature 37 C 37.1 C Heart Rate Heart Rate [ 88 90 88 Monitoring electrodes] Respiratory 24 23 20 Rate Blood Pressure Blood Pressure 125/73 129/81 H 130/86 H [Left Brachial] Blood Pressure [Left] O2 Saturation 92 94 95 If not protocol 2 2 2 : Oxygen Flow, liters/minute 02/28/23 02/28/23 02/28/23 10:50 11:00 11:32 Temperature 37.1 C 37.1 C Heart Rate Heart Rate [ 86 88 78 Monitoring electrodes] Respiratory 24 25 H 24 Rate Blood Pressure Blood Pressure 125/77 129/89 H 118/79 [Left Brachial] Blood Pressure [Left] O2 Saturation 96 97 98 If not protocol 2 2 2 : Oxygen Flow, liters/minute 02/28/23 02/28/23 11:38 11:46 Temperature 37.1 C 37.2 C Heart Rate Heart Rate [ 77 75 Monitoring electrodes] Respiratory 24 22 Rate Blood Pressure Blood Pressure 110/74 [Left Brachial] Blood Pressure [Left] O2 Saturation 98 97 If not protocol 2 2 : Oxygen Flow, liters/minute Oxygen O2 Source Nasal cannula I&O (Last 24 Hrs): Intake and Output Totals x24h 02/26/23 02/27/23 02/28/23 23:59 23:59 23:59 Intake Total 300 2560.501 2212.000 Output Total 370 330 Balance 300 2190.501 1882.000 General: Other (Patient drowsy postoperatively) HEENT: Other (Scleral icterus) Neck: Supple Neuro: Other (Drowsy postoperatively) Cardiovascular: Regular rate, Normal S1, Normal S2 Respiratory: Breath sounds nml Abdomen: No tenderness, Other (Abdomen distended secondary to ascites) Extremities: Other (Trace bilateral pedal edema) Comments/Notes: Area of previous injury with eschar but none palpable fluctuant area on left lower leg lateral aspect - Results Results: Laboratory Results WBC 9.7 x10^3/uL (4.8-10.8) 02/28/23 05:16 RBC 2.72 10^6/uL (4.70-6.10) L 02/28/23 05:16 Hgb 7.5 g/dL (14.0-18.0) L 02/28/23 05:16 Hct 24.3 % (42.0-52.0) L 02/28/23 05:16 MCV 89.3 fL (80.0-94.0) 02/28/23 05:16 MCH 27.6 pg (27.0-31.0) 02/28/23 05:16 MCHC 30.9 g/dL (32.0-36.0) L 02/28/23 05:16 RDW 22.5 % (12.0-15.0) H 02/28/23 05:16 Plt Count 82 10^3/uL (130-450) L 02/28/23 05:16 MPV 10.0 fL (7.4-11.4) 02/28/23 05:16 Neut # (Auto) 7.1 10^3/uL (1.5-6.6) H 02/28/23 05:16 Lymph # (Auto) 1.3 10^3/uL (1.5-3.5) L 02/28/23 05:16 [place] # (Auto) 0.9 10^3/uL (0.0-1.0) 02/28/23 05:16 Eos # (Auto) 0.3 10^3/uL (0.0-0.7) 02/28/23 05:16 Baso # (Auto) 0.1 10^3/uL (0.0-0.1) 02/28/23 05:16 Absolute Nucleated RBC 0.02 x10^3/uL 02/28/23 05:16 Nucleated RBC % 0.2 /100WBC 02/28/23 05:16 Manual Slide Review Indicated 02/28/23 05:16 WBC Morphology NORMAL APPEARANCE (NORMAL) 02/28/23 05:16 Platelet Estimate DECREASED (<130,000) (NORMAL) 02/28/23 05:16 Platelet Morphology NORMAL APPEARANCE (NORMAL) 02/28/23 05:16 RBC Morph Micro Appear 2+ ANISOCYTOSIS (NORMAL) 02/28/23 05:16 PT 27.0 secs (9.9-12.6) H 02/28/23 05:16 INR 2.6 (0.8-1.2) H 02/28/23 05:16 APTT 38.8 secs (24.9-33.3) H 02/28/23 05:16 VBG pH 7.498 (7.31-7.41) H 02/28/23 05:16 Ionized Calcium 1.08 mmol/L (1.15-1.33) L 02/28/23 05:16 Sodium 137 mmol/L (135-145) 02/28/23 05:16 Potassium 3.8 mmol/L (3.5-5.0) 02/28/23 05:16 Chloride 107 mmol/L (101-111) 02/28/23 05:16 Carbon Dioxide 24 mmol/L (21-32) 02/28/23 05:16 Anion Gap 6.0 (6-13) 02/28/23 05:16 BUN 11 mg/dL (6-20) 02/28/23 05:16 Creatinine 0.7 mg/dL (0.6-1.2) 02/28/23 05:16 Estimated GFR (MDRD) 115 (>89) 02/28/23 05:16 Glucose 109 mg/dL (70-100) H 02/28/23 05:16 POC Whole Bld Glucose 113 mg/dL (70 - 100) H 02/27/23 23:26 Calcium 7.7 mg/dL (8.5-10.3) L 02/28/23 05:16 Phosphorus 3.9 mg/dL (2.5-4.6) 02/28/23 05:16 Magnesium 1.8 mg/dL (1.7-2.8) 02/28/23 05:16 Total Bilirubin 12.0 mg/dL (0.2-1.0) H 02/28/23 05:16 AST 48 IU/L (10-42) H 02/28/23 05:16 ALT 19 IU/L (10-60) 02/28/23 05:16 Alkaline Phosphatase 65 IU/L (42-121) 02/28/23 05:16 Ammonia 86.3 umol/L (7-35) H* 02/28/23 05:16 Troponin I High Sens 13.5 ng/L (2.3-19.7) 02/27/23 13:43 Total Protein 6.4 g/dL (6.7-8.2) L 02/28/23 05:16 Albumin 1.8 g/dL (3.2-5.5) L 02/28/23 05:16 Globulin 4.6 g/dL (2.1-4.2) H 02/28/23 05:16 Albumin/Globulin Ratio 0.4 (1.0-2.2) L 02/28/23 05:16 Lipase 76 U/L (22-51) H 02/26/23 19:24 Urine Color BROWN 02/27/23 14:04 Urine Clarity CLEAR (CLEAR) 02/27/23 14:04 Urine pH 5.5 PH (5.0-7.5) 02/27/23 14:04 Ur Specific [place] 1.025 (1.002-1.030) 02/27/23 14:04 Urine Protein TRACE mg/dL (NEGATIVE) 02/27/23 14:04 Urine Glucose (UA) NEGATIVE mg/dL (NEGATIVE) 02/27/23 14:04 Urine Ketones TRACE mg/dL (NEGATIVE) 02/27/23 14:04 Urine Occult Blood NEGATIVE (NEGATIVE) 02/27/23 14:04 Urine Nitrite POSITIVE (NEGATIVE) H 02/27/23 14:04 Urine Bilirubin MODERATE (NEGATIVE) H 02/27/23 14:04 Urine Urobilinogen >=8.0 E.U./dL (NORMAL) H 02/27/23 14:04 Ur Leukocyte Esterase TRACE (NEGATIVE) H 02/27/23 14:04 Urine RBC 0-5 /HPF (0-5) 02/27/23 14:04 Urine WBC 0-3 /HPF (0-3) 02/27/23 14:04 Ur Squamous Epith Cells RARE Squamous (<= Few) 02/27/23 14:04 Urine Bacteria Few /HPF (None Seen) 02/27/23 14:04 Ur Microscopic Review INDICATED 02/27/23 14:04 Urine Culture Comments INDICATED 02/27/23 14:04 Nasal Screen MRSA (PCR) NEGATIVE (NEGATIVE) 02/27/23 14:04 Ethyl Alcohol 82.3 mg/dL 02/26/23 19:24 Blood Type O NEGATIVE 02/26/23 19:46 Blood Type Recheck O NEGATIVE 02/26/23 19:24 Antibody Screen NEGATIVE 02/26/23 19:46 Crossmatch IS Only See Detail 02/26/23 19:46 ABX Reporting Has patient been on IV antibiotics over the past 48 hours?: No
[2023-02-28 14:01] LABS: CALCIUM, IONIZED 1.07 mmol/L (1.15-1.33); VBG PH 7.418 (7.31-7.41)
[2023-02-28 14:09] LABS: MAGNESIUM 2.1 mg/dL (1.7-2.8); POTASSIUM 4.2 mmol/L (3.5-5.0)
[2023-02-28] MEDS ORDERED: LACTULOSE 10 GM /15 ML UDC PO STA (15:44)
[2023-02-28] MEDS: SPIRONOLACTONE 25 MG TABLET PO SCH (15:59)
[2023-02-28] MEDS: FUROSEMIDE 40 MG/4 ML VIAL IVP SCH (15:59)
[2023-02-28] MEDS: SODIUM CHLORIDE FLUSH 0.9% 10 ML SYRINGE IVP PRN (19:40)
[2023-03-01] MEDS: SODIUM CHLORIDE FLUSH 0.9% 10 ML SYRINGE IVP SCH ×4 (00:16→23:17)
[2023-03-01 00:22] LABS: CALCIUM, IONIZED 1.04 mmol/L (1.15-1.33); VBG PH 7.518 (7.31-7.41)
[2023-03-01] MEDS ORDERED: CALCIUM GLUC 1,000MG/50ML-NACL 1,000 MG/50 ML BAG IV ONE ×2 (00:33→16:48)
[2023-03-01 00:53] LABS: ALBUMIN 2.1 g/dL (3.2-5.5); ALBUMIN/GLOBULIN RATIO 0.5 (1.0-2.2); BILIRUBIN,TOTAL 9.1 mg/dL (0.2-1.0); CALCIUM 7.7 mg/dL (8.5-10.3); CREATININE 0.7 mg/dL (0.6-1.2); MAGNESIUM 1.8 mg/dL (1.7-2.8); PHOSPHORUS 3.1 mg/dL (2.5-4.6); POTASSIUM 3.4 mmol/L (3.5-5.0); TOTAL PROTEIN 6.6 g/dL (6.7-8.2)
[2023-03-01 01:01] LABS: PT - PROTHROMBIN TIME 21.6 secs (9.9-12.6)
[2023-03-01 01:08] LABS: PARTIAL THROMBOPLASTIN TIME 31.8 secs (24.9-33.3)
[2023-03-01] MEDS: POTASSIUM CHLORIDE 20 MEQ TABLET PO SCH ×4 (01:19→11:32)
[2023-03-01] MEDS ORDERED: MAGNESIUM OXIDE 400 MG TABLET PO ONE (03:00)
[2023-03-01] MEDS: FUROSEMIDE 40 MG/4 ML VIAL IVP SCH (06:13)
[2023-03-01] MEDS: SUCRALFATE 1 GM/10 ML UDC PO SCH ×4 (06:18→21:34)
[2023-03-01 07:47] LABS: CALCIUM, IONIZED 1.05 mmol/L (1.15-1.33); VBG PH 7.532 (7.31-7.41)
--- NOTE | 2023-03-01 07:54 | PROVIDER PROGRESS NOTE ---
Progress Note General Surgery Progress Note Patient appears clinically improved. He is awake and using his iPhone this morning. He understands and converses easily. He has had no clinical or lab evidence of recurrence of his UGI bleed. He is tolerating a clear liquid diet. After 4 units of FFP last evening his INR is 2.0. Bili is now down to 9 from 12 and ammonia level is decreasing (74.8). His VS are stable. UOP is good and renal function intact. Abdomen is distended with ascites but otherwise soft and non-tender. He remains jaundiced. He is currently receiving oral Protonix, Carafate, and Diflucan for his esophagitis and Nadolol for his portal hypertension/varices, Spironolactone/Furosemide for diuresis, and daily Thiamine. PRN Lorazepam is offered as needed. Assessment: 1) Acute on chronic blood loss anemia due to esophagitis. Marjorie is suspected and biopsy is pending. 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 Please do not hesitate to contact me if you have questions or concerns or if you would like me to continue to follow this patient with you. Luis Eduardo Saldivar MD, FACS [phone]
[2023-03-01 07:55] LABS: MAGNESIUM 1.9 mg/dL (1.7-2.8); POTASSIUM 3.5 mmol/L (3.5-5.0)
[2023-03-01 08:20] LABS: BASOPHILS # (AUTO) 0.1 10^3/uL (0.0-0.1); BASOPHILS % (AUTO) 0.8 %; EOSINOPHILS # (AUTO) 0.5 10^3/uL (0.0-0.7); EOSINOPHILS % (AUTO) 4.7 %; HCT - HEMATOCRIT 26.1 % (42.0-52.0); LYMPHOCYTES # (AUTO) 1.7 10^3/uL (1.5-3.5); LYMPHOCYTES % (AUTO) 16.7 %; MEAN CORPUSCULAR HEMOGLOBIN 27.8 pg (27.0-31.0); MEAN CORPUSCULAR HGB CONC 30.7 g/dL (32.0-36.0); MEAN CORPUSCULAR VOLUME 90.6 fL (80.0-94.0); MONOCYTES # (AUTO) 1.1 10^3/uL (0.0-1.0); MONOCYTES % (AUTO) 10.3 %; NEUTROPHILS # (AUTO) 6.9 10^3/uL (1.5-6.6); NEUTROPHILS % (AUTO) 66.9 %; PLT - PLATELET COUNT 91 10^3/uL (130-450); RED BLOOD COUNT 2.88 10^6/uL (4.70-6.10); RED CELL DISTRIBUTION WIDTH 22.6 % (12.0-15.0); WHITE BLOOD COUNT 10.3 x10^3/uL (4.8-10.8)
[2023-03-01] MEDS: FLUCONAZOLE 100 MG TABLET PO SCH (08:48)
[2023-03-01] MEDS: nadoloL 20 MG TABLET PO SCH (08:48)
[2023-03-01] MEDS: CALCIUM CARBONATE CHEW 500 MG TABLET PO SCH ×2 (08:48→11:33)
[2023-03-01] MEDS: cefTRIAXone 1 GM in SODIUM CHLORIDE 0.9% MINIBAG 100 ML IV SCH (08:48)
[2023-03-01] MEDS: THIAMINE 100 MG TABLET PO SCH (08:49)
[2023-03-01] MEDS: SPIRONOLACTONE 25 MG TABLET PO SCH (08:49)
[2023-03-01] MEDS: PANTOPRAZOLE 40 MG TABLET PO SCH ×2 (08:49→20:29)
[2023-03-01 09:12] LABS: PLATELET ESTIMATE, MANUAL DECREASED (<130,000) (NORMAL); PLATELET MORPHOLOGY NORMAL APPEARANCE (NORMAL); SLIDE REVIEW? Indicated
[2023-03-01 09:14] LABS: WBC MORPHOLOGY (MULTIPLE) NORMAL APPEARANCE (NORMAL)
[2023-03-01] MEDS: chlordiazePOXIDE 5 MG CAPSULE PO SCH ×3 (11:32→23:16)
--- NOTE | 2023-03-01 12:24 | PROVIDER PROGRESS NOTE ---
Subjective - Subjective Pt reports feeling: Improved (He still feels very weak he says but is happy that he can eat) Objective - Vital Signs/Intake & Output Reviewed Vital Signs: Yes Vital Signs: Vital Signs Pulse Resp BP Pulse Ox O2 Flow Rate 03/01/23 11:00 77 21 104/69 95 1 Intake & Output: Intake & Output 02/26/23 02/27/23 02/28/23 03/01/23 23:59 23:59 23:59 23:59 Intake Total 300 2560.501 5473.000 1190 Output Total 370 2300 2780 Balance 300 2190.501 3173.000 -1590 - Objective General Appearance: positive: Alert, Lethargic Eyes Bilateral: positive: Other (Icteric, has upper lid ptosis, no nystagmus) Eyes: OS Scleral icterus ENT: positive: No signs of dehydration Neck: positive: Nml inspection, No JVD Respiratory: positive: Other (He is tachypneic at rest. Lungs are clear to auscultation) Cardiovascular: positive: Regular rate & rhythm, No murmur Abdomen: positive: Non-tender, Other (Moderately distended, possible fluid wave) Skin: positive: Warm, Dry, Other (Ictyeric) Extremities: positive: Non-tender Neurologic/Psychiatric: positive: Oriented x3, Other (Bradykinetic. Hands have a tremor. No nystagmus.) - Lab Results Fish Bones: 03/01/23 07:31 03/01/23 07:31 Other Labs: Lab Results x24hrs 03/01/23 03/01/23 03/01/23 Range/Units 07:31 07:31 07:31 WBC 10.3 (4.8-10.8) x10^3/uL RBC 2.88 L (4.70-6.10) 10^6/uL Hgb 8.0 L (14.0-18.0) g/dL Hct 26.1 L (42.0-52.0) % MCV 90.6 (80.0-94.0) fL MCH 27.8 (27.0-31.0) pg MCHC 30.7 L (32.0-36.0) g/dL RDW 22.6 H (12.0-15.0) % Plt Count 91 L (130-450) 10^3/uL Neut # (Auto) 6.9 H (1.5-6.6) 10^3/uL Lymph # (Auto) 1.7 (1.5-3.5) 10^3/uL [place] # (Auto) 1.1 H (0.0-1.0) 10^3/uL Eos # (Auto) 0.5 (0.0-0.7) 10^3/uL Baso # (Auto) 0.1 (0.0-0.1) 10^3/uL Absolute Nucleated RBC 0.00 x10^3/uL Nucleated RBC % 0.0 /100WBC Manual Slide Review Indicated WBC Morphology NORMAL APPEARANCE (NORMAL) Platelet Estimate DECREASED (<130,000) (NORMAL) Platelet Morphology NORMAL APPEARANCE (NORMAL) RBC Morph Micro Appear 2+ HYPOCHROMASIA (NORMAL) PT (9.9-12.6) secs INR (0.8-1.2) APTT (24.9-33.3) secs VBG pH 7.532 H (7.31-7.41) Ionized Calcium 1.05 L (1.15-1.33) mmol/L Sodium (135-145) mmol/L Potassium (3.5-5.0) mmol/L Chloride (101-111) mmol/L Carbon Dioxide (21-32) mmol/L Anion Gap (6-13) BUN (6-20) mg/dL Creatinine (0.6-1.2) mg/dL Estimated GFR (MDRD) (>89) Glucose (70-100) mg/dL Calcium (8.5-10.3) mg/dL Phosphorus (2.5-4.6) mg/dL Magnesium (1.7-2.8) mg/dL Total Bilirubin (0.2-1.0) mg/dL AST (10-42) IU/L ALT (10-60) IU/L Alkaline Phosphatase (42-121) IU/L Ammonia (7-35) umol/L B-Natriuretic Peptide 695 H (5-100) pg/mL Total Protein (6.7-8.2) g/dL Albumin (3.2-5.5) g/dL Globulin (2.1-4.2) g/dL Albumin/Globulin Ratio (1.0-2.2) Blood Type Antibody Screen Crossmatch IS Only 05/29/23 05/29/23 05/29/23 Range/Units 07:31 00:13 00:13 WBC (4.8-10.8) x10^3/uL RBC (4.70-6.10) 10^6/uL Hgb (14.0-18.0) g/dL Hct (42.0-52.0) % MCV (80.0-94.0) fL MCH (27.0-31.0) pg MCHC (32.0-36.0) g/dL RDW (12.0-15.0) % Plt Count (130-450) 10^3/uL Neut # (Auto) (1.5-6.6) 10^3/uL Lymph # (Auto) (1.5-3.5) 10^3/uL [place] # (Auto) (0.0-1.0) 10^3/uL Eos # (Auto) (0.0-0.7) 10^3/uL Baso # (Auto) (0.0-0.1) 10^3/uL Absolute Nucleated RBC x10^3/uL Nucleated RBC % /100WBC Manual Slide Review WBC Morphology (NORMAL) Platelet Estimate (NORMAL) Platelet Morphology (NORMAL) RBC Morph Micro Appear (NORMAL) PT (9.9-12.6) secs INR (0.8-1.2) APTT (24.9-33.3) secs VBG pH 7.518 H (7.31-7.41) Ionized Calcium 1.04 L (1.15-1.33) mmol/L Sodium (135-145) mmol/L Potassium 3.5 (3.5-5.0) mmol/L Chloride (101-111) mmol/L Carbon Dioxide (21-32) mmol/L Anion Gap (6-13) BUN (6-20) mg/dL Creatinine (0.6-1.2) mg/dL Estimated GFR (MDRD) (>89) Glucose (70-100) mg/dL Calcium (8.5-10.3) mg/dL Phosphorus (2.5-4.6) mg/dL Magnesium 1.9 (1.7-2.8) mg/dL Total Bilirubin (0.2-1.0) mg/dL AST (10-42) IU/L ALT (10-60) IU/L Alkaline Phosphatase (42-121) IU/L Ammonia 74.8 H (7-35) umol/L B-Natriuretic Peptide (5-100) pg/mL Total Protein (6.7-8.2) g/dL Albumin (3.2-5.5) g/dL Globulin (2.1-4.2) g/dL Albumin/Globulin Ratio (1.0-2.2) Blood Type Antibody Screen Crossmatch IS Only 03/01/23 03/01/23 02/28/23 Range/Units 00:13 00:13 13:53 WBC (4.8-10.8) x10^3/uL RBC (4.70-6.10) 10^6/uL Hgb (14.0-18.0) g/dL Hct (42.0-52.0) % MCV (80.0-94.0) fL MCH (27.0-31.0) pg MCHC (32.0-36.0) g/dL RDW (12.0-15.0) % Plt Count (130-450) 10^3/uL Neut # (Auto) (1.5-6.6) 10^3/uL Lymph # (Auto) (1.5-3.5) 10^3/uL [place] # (Auto) (0.0-1.0) 10^3/uL Eos # (Auto) (0.0-0.7) 10^3/uL Baso # (Auto) (0.0-0.1) 10^3/uL Absolute Nucleated RBC x10^3/uL Nucleated RBC % /100WBC Manual Slide Review WBC Morphology (NORMAL) Platelet Estimate (NORMAL) Platelet Morphology (NORMAL) RBC Morph Micro Appear (NORMAL) PT 21.6 H (9.9-12.6) secs INR 2.0 H (0.8-1.2) APTT 31.8 (24.9-33.3) secs VBG pH 7.418 H (7.31-7.41) Ionized Calcium 1.07 L (1.15-1.33) mmol/L Sodium 135 (135-145) mmol/L Potassium 3.4 L (3.5-5.0) mmol/L Chloride 106 (101-111) mmol/L Carbon Dioxide 25 (21-32) mmol/L Anion Gap 4.0 L (6-13) BUN 11 (6-20) mg/dL Creatinine 0.7 (0.6-1.2) mg/dL Estimated GFR (MDRD) 115 (>89) Glucose 129 H (70-100) mg/dL Calcium 7.7 L (8.5-10.3) mg/dL Phosphorus 3.1 (2.5-4.6) mg/dL Magnesium 1.8 (1.7-2.8) mg/dL Total Bilirubin 9.1 H (0.2-1.0) mg/dL AST 36 (10-42) IU/L ALT 18 (10-60) IU/L Alkaline Phosphatase 68 (42-121) IU/L Ammonia (7-35) umol/L B-Natriuretic Peptide (5-100) pg/mL Total Protein 6.6 L (6.7-8.2) g/dL Albumin 2.1 L (3.2-5.5) g/dL Globulin 4.5 H (2.1-4.2) g/dL Albumin/Globulin Ratio 0.5 L (1.0-2.2) Blood Type Antibody Screen Crossmatch IS Only 02/28/23 02/28/23 02/26/23 Range/Units 13:53 13:53 19:46 WBC (4.8-10.8) x10^3/uL RBC (4.70-6.10) 10^6/uL Hgb (14.0-18.0) g/dL Hct (42.0-52.0) % MCV (80.0-94.0) fL MCH (27.0-31.0) pg MCHC (32.0-36.0) g/dL RDW (12.0-15.0) % Plt Count (130-450) 10^3/uL Neut # (Auto) (1.5-6.6) 10^3/uL Lymph # (Auto) (1.5-3.5) 10^3/uL [place] # (Auto) (0.0-1.0) 10^3/uL Eos # (Auto) (0.0-0.7) 10^3/uL Baso # (Auto) (0.0-0.1) 10^3/uL Absolute Nucleated RBC x10^3/uL Nucleated RBC % /100WBC Manual Slide Review WBC Morphology (NORMAL) Platelet Estimate (NORMAL) Platelet Morphology (NORMAL) RBC Morph Micro Appear (NORMAL) PT (9.9-12.6) secs INR (0.8-1.2) APTT (24.9-33.3) secs VBG pH (7.31-7.41) Ionized Calcium (1.15-1.33) mmol/L Sodium (135-145) mmol/L Potassium 4.2 (3.5-5.0) mmol/L Chloride (101-111) mmol/L Carbon Dioxide (21-32) mmol/L Anion Gap (6-13) BUN (6-20) mg/dL Creatinine (0.6-1.2) mg/dL Estimated GFR (MDRD) (>89) Glucose (70-100) mg/dL Calcium (8.5-10.3) mg/dL Phosphorus 3.6 (2.5-4.6) mg/dL Magnesium 2.1 (1.7-2.8) mg/dL Total Bilirubin (0.2-1.0) mg/dL AST (10-42) IU/L ALT (10-60) IU/L Alkaline Phosphatase (42-121) IU/L Ammonia (7-35) umol/L B-Natriuretic Peptide (5-100) pg/mL Total Protein (6.7-8.2) g/dL Albumin (3.2-5.5) g/dL Globulin (2.1-4.2) g/dL Albumin/Globulin Ratio (1.0-2.2) Blood Type O NEGATIVE Antibody Screen NEGATIVE Crossmatch IS Only See Detail Assessment/Plan - Problem List (1) Gastrointestinal hemorrhage with hematemesis Impression: Pt presented with hematemesis. His abdomen CT showed large distal esophageal varices. He was seen in consultation by general surgeon who did EGD, which showed esophageal varices from cirrhosis, but they were not the reason for his anemia and GI blood loss. He was found to have a friable esophagitis, due either to batsheva or gastro-esophageal reflux along with his coagulopathy, and this combination caused his presenting symptoms. Empiric IV octreotide and IV Rocephin for possibility of variceal bleed, were stopped Plan: Follow hemoglobin daily, transfuse if under 7 or if symptomatic under 8 Continue with the sucralfate and Protonix meds The general surgeon agreed that his clear liquid diet could be advanced (2) Symptomatic anemia Conclusion/Plan: Patient was transfused 4 units PRBC. All labs were reviewed. Hgb went from 3.9 at admission >> 7.6>> 8.3>> 7.5>> 8 today. Source of his anemia is GI bleed from his severe gastritis and esophagitis, on top of low plts. Plan: Follow hemoglobin daily, transfuse if under 7 or if symptomatic under 8 Change IV Lasix to p.o. Lasix We will obtain an Echocardiogram to evaluate for alcoholic cardiomyopathy (3) Alcohol withdrawal The patient was started on CIWA protocol and received Ativan, he is scoring between 2 and 6 Plan: Continue daily Thiamine We will start low doses of oral Librium scheduled and continue with CIWA protocol as needed. We will request PT and OT to eval He can be transferred out of the ICU to a [facility] bed (4) Liver disease due to alcohol Conclusion/Plan: Abdomen/pelvis CT was read as having moderate to large amount of ascites. His liver appeared cirrhotic. He has a very elevated INR consistent with poor liver synthesis ability. He needed to receive FFP. 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 He has an elevated bilirubin and has scleral and skin icterus Plan: Continue daily Thiamine 100 mg p.o. We will continue with po Lactulose and titrate to 3 loose BMs/day max. Follow ammonia level daily We will request Social Work consult to discuss resources with him going forward for abstaining from alcohol abuse. (5) Alcoholic hepatitis with ascites Conclusion/Plan: His Maddrey discriminate function is 87.3 suggesting poor prognosis. Plan: Will order dosing pentoxifylline now that he is taking p.o. Will consider therapeutic tap of ascites when IR is available, since he does appear to me to have dyspnea from a distended abdomen. (6) Elevated INR Conclusion/Plan: Secondary to liver disease. All labs were reviewed. He got FFP and vitamin K and INR went from 2.7 at admission >> 2.6>> 2.0 today. Plan: Will monitor INR for possible further need for FFP or vit K. (7) Electrolyte abnormality Conclusion/Plan: Patient did present with hypokalemia and hypomagnesemia, c/w poor diet in an alcoholic. Plan Follow BMP and mg, calcium, phosphate levels daily, and replace if low
[2023-03-01] MEDS: LACTULOSE 10 GM /15 ML UDC PO SCH (13:06)
[2023-03-01 15:07] LABS: CALCIUM, IONIZED 1.04 mmol/L (1.15-1.33); VBG PH 7.497 (7.31-7.41)
[2023-03-01 15:17] LABS: MAGNESIUM 1.8 mg/dL (1.7-2.8); PHOSPHORUS 2.7 mg/dL (2.5-4.6); POTASSIUM 4.1 mmol/L (3.5-5.0)
[2023-03-01] MEDS ORDERED: MAGNESIUM SULFATE 2 GRAM 2 GM/50 ML BAG IV ONE (16:48)
[2023-03-01 20:09] LABS: CALCIUM, IONIZED 1.03 mmol/L (1.15-1.33); VBG PH 7.52 (7.31-7.41)
[2023-03-02] MEDS: LORazepam 2 MG/ML VIAL IVP PRN (00:46)
[2023-03-02 04:41] LABS: BASOPHILS # (AUTO) 0.1 10^3/uL (0.0-0.1); BASOPHILS % (AUTO) 0.7 %; EOSINOPHILS # (AUTO) 0.5 10^3/uL (0.0-0.7); EOSINOPHILS % (AUTO) 5.4 %; HCT - HEMATOCRIT 26.5 % (42.0-52.0); LYMPHOCYTES # (AUTO) 2.3 10^3/uL (1.5-3.5); LYMPHOCYTES % (AUTO) 23.1 %; MEAN CORPUSCULAR HEMOGLOBIN 28.3 pg (27.0-31.0); MEAN CORPUSCULAR HGB CONC 30.2 g/dL (32.0-36.0); MEAN CORPUSCULAR VOLUME 93.6 fL (80.0-94.0); MONOCYTES # (AUTO) 1.3 10^3/uL (0.0-1.0); MONOCYTES % (AUTO) 13.5 %; NEUTROPHILS # (AUTO) 5.6 10^3/uL (1.5-6.6); NEUTROPHILS % (AUTO) 56.9 %; PLT - PLATELET COUNT 89 10^3/uL (130-450); RED BLOOD COUNT 2.83 10^6/uL (4.70-6.10); RED CELL DISTRIBUTION WIDTH 23.3 % (12.0-15.0); WHITE BLOOD COUNT 9.8 x10^3/uL (4.8-10.8)
[2023-03-02 04:42] LABS: SLIDE REVIEW? Indicated
[2023-03-02 04:44] LABS: CALCIUM, IONIZED 1.08 mmol/L (1.15-1.33); VBG PH 7.513 (7.31-7.41)
[2023-03-02 04:54] LABS: ALBUMIN 1.9 g/dL (3.2-5.5); ALBUMIN/GLOBULIN RATIO 0.4 (1.0-2.2); BILIRUBIN,TOTAL 7.3 mg/dL (0.2-1.0); CALCIUM 7.7 mg/dL (8.5-10.3); CREATININE 0.7 mg/dL (0.6-1.2); MAGNESIUM 1.9 mg/dL (1.7-2.8); PHOSPHORUS 2.5 mg/dL (2.5-4.6); TOTAL PROTEIN 6.5 g/dL (6.7-8.2)
[2023-03-02 04:58] LABS: PLATELET ESTIMATE, MANUAL DECREASED (<130,000) (NORMAL); PLATELET MORPHOLOGY NORMAL APPEARANCE (NORMAL); WBC MORPHOLOGY (MULTIPLE) NORMAL APPEARANCE (NORMAL)
[2023-03-02 05:04] LABS: INR 2.4 (0.8-1.2); PT - PROTHROMBIN TIME 25.4 secs (9.9-12.6)
[2023-03-02] MEDS: chlordiazePOXIDE 5 MG CAPSULE PO SCH ×4 (06:11→23:41)
[2023-03-02] MEDS: SUCRALFATE 1 GM/10 ML UDC PO SCH ×4 (06:11→22:14)
[2023-03-02] MEDS: CALCIUM CARBONATE CHEW 500 MG TABLET PO SCH ×2 (08:39→12:10)
[2023-03-02] MEDS: FLUCONAZOLE 100 MG TABLET PO SCH (08:42)
[2023-03-02] MEDS: FUROSEMIDE 40 MG TABLET PO SCH (08:44)
[2023-03-02] MEDS: nadoloL 20 MG TABLET PO SCH (08:44)
[2023-03-02] MEDS: THIAMINE 100 MG TABLET PO SCH (08:44)
[2023-03-02] MEDS: SPIRONOLACTONE 25 MG TABLET PO SCH (08:44)
[2023-03-02] MEDS: PRENATAL VITAMIN TABLET PO SCH (08:48)
[2023-03-02] MEDS: PANTOPRAZOLE 40 MG TABLET PO SCH ×2 (08:48→20:38)
[2023-03-02] MEDS: LACTULOSE 10 GM /15 ML UDC PO SCH (08:49)
[2023-03-02] MEDS: SODIUM CHLORIDE FLUSH 0.9% 10 ML SYRINGE IVP SCH ×3 (09:01→23:55)
--- NOTE | 2023-03-02 18:02 | PROVIDER PROGRESS NOTE ---
Subjective - Subjective Pt reports feeling: Improved (He is not as forgetful today. He admits that he was drinking a lot of alcohol because of anxiety. He thought he would go to a doctor to get pills for anxiety but then did not want to become "dependent on those pills") Objective - Vital Signs/Intake & Output Reviewed Vital Signs: Yes Vital Signs: Vital Signs Temp Pulse Resp BP Pulse Ox 03/02/23 16:00 36.5 C 78 21 113/79 93 Intake & Output: Intake & Output 02/27/23 02/28/23 03/01/23 03/02/23 23:59 23:59 23:59 23:59 Intake Total 2560.501 5473.000 2190 720 Output Total 370 2300 3185 1725 Balance 2190.501 3173.000 -995 -1005 - Objective General Appearance: positive: No acute distress, Lethargic Eyes Bilateral: positive: Normal inspection, EOMI Eyes: OS Scleral icterus ENT: positive: ENT inspection nml, No signs of dehydration Neck: positive: Nml inspection, No JVD Respiratory: positive: No respiratory distress Cardiovascular: positive: Regular rate & rhythm Abdomen: positive: Non-tender, Other (Mildly distended, probable fluid wave and liver enlarged) Skin: positive: Warm, Dry, Other (icteric) Extremities: positive: Non-tender, Other (trace ankle edema, L cooely has large dry scab) - Lab Results Fish Bones: 03/05/23 09:20 03/06/23 04:57 Other Labs: Lab Results x24hrs 03/02/23 03/02/23 03/02/23 Range/Units 01:42 01:42 01:42 WBC 9.8 (4.8-10.8) x10^3/uL RBC 2.83 L (4.70-6.10) 10^6/uL Hgb 8.0 L (14.0-18.0) g/dL Hct 26.5 L (42.0-52.0) % MCV 93.6 (80.0-94.0) fL MCH 28.3 (27.0-31.0) pg MCHC 30.2 L (32.0-36.0) g/dL RDW 23.3 H (12.0-15.0) % Plt Count 89 L (130-450) 10^3/uL MPV TNP Neut # (Auto) 5.6 (1.5-6.6) 10^3/uL Lymph # (Auto) 2.3 (1.5-3.5) 10^3/uL [place] # (Auto) 1.3 H (0.0-1.0) 10^3/uL Eos # (Auto) 0.5 (0.0-0.7) 10^3/uL Baso # (Auto) 0.1 (0.0-0.1) 10^3/uL Absolute Nucleated RBC 0.00 x10^3/uL Nucleated RBC % 0.0 /100WBC Manual Slide Review Indicated WBC Morphology NORMAL APPEARANCE (NORMAL) Platelet Estimate DECREASED (<130,000) (NORMAL) Platelet Morphology NORMAL APPEARANCE (NORMAL) RBC Morph Micro Appear 1+ ACANTHOCYTES (NORMAL) PT (9.9-12.6) secs INR (0.8-1.2) VBG pH 7.513 H (7.31-7.41) Ionized Calcium 1.08 L (1.15-1.33) mmol/L Sodium (135-145) mmol/L Potassium (3.5-5.0) mmol/L Chloride (101-111) mmol/L Carbon Dioxide (21-32) mmol/L Anion Gap (6-13) BUN (6-20) mg/dL Creatinine (0.6-1.2) mg/dL Estimated GFR (MDRD) (>89) Glucose (70-100) mg/dL Calcium (8.5-10.3) mg/dL Phosphorus (2.5-4.6) mg/dL Magnesium (1.7-2.8) mg/dL Total Bilirubin (0.2-1.0) mg/dL AST (10-42) IU/L ALT (10-60) IU/L Alkaline Phosphatase (42-121) IU/L Ammonia (7-35) umol/L B-Natriuretic Peptide 695 H (5-100) pg/mL Total Protein (6.7-8.2) g/dL Albumin (3.2-5.5) g/dL Globulin (2.1-4.2) g/dL Albumin/Globulin Ratio (1.0-2.2) 03/02/23 03/02/23 03/02/23 Range/Units 01:42 01:42 01:42 WBC (4.8-10.8) x10^3/uL RBC (4.70-6.10) 10^6/uL Hgb (14.0-18.0) g/dL Hct (42.0-52.0) % MCV (80.0-94.0) fL MCH (27.0-31.0) pg MCHC (32.0-36.0) g/dL RDW (12.0-15.0) % Plt Count (130-450) 10^3/uL MPV Neut # (Auto) (1.5-6.6) 10^3/uL Lymph # (Auto) (1.5-3.5) 10^3/uL [place] # (Auto) (0.0-1.0) 10^3/uL Eos # (Auto) (0.0-0.7) 10^3/uL Baso # (Auto) (0.0-0.1) 10^3/uL Absolute Nucleated RBC x10^3/uL Nucleated RBC % /100WBC Manual Slide Review WBC Morphology (NORMAL) Platelet Estimate (NORMAL) Platelet Morphology (NORMAL) RBC Morph Micro Appear (NORMAL) PT 25.4 H (9.9-12.6) secs INR 2.4 H (0.8-1.2) VBG pH (7.31-7.41) Ionized Calcium (1.15-1.33) mmol/L Sodium 139 (135-145) mmol/L Potassium 4.0 (3.5-5.0) mmol/L Chloride 107 (101-111) mmol/L Carbon Dioxide 27 (21-32) mmol/L Anion Gap 5.0 L (6-13) BUN 9 (6-20) mg/dL Creatinine 0.7 (0.6-1.2) mg/dL Estimated GFR (MDRD) 115 (>89) Glucose 128 H (70-100) mg/dL Calcium 7.7 L (8.5-10.3) mg/dL Phosphorus 2.5 (2.5-4.6) mg/dL Magnesium 1.9 (1.7-2.8) mg/dL Total Bilirubin 7.3 H (0.2-1.0) mg/dL AST 37 (10-42) IU/L ALT 17 (10-60) IU/L Alkaline Phosphatase 81 (42-121) IU/L Ammonia 78.5 H (7-35) umol/L B-Natriuretic Peptide (5-100) pg/mL Total Protein 6.5 L (6.7-8.2) g/dL Albumin 1.9 L (3.2-5.5) g/dL Globulin 4.6 H (2.1-4.2) g/dL Albumin/Globulin Ratio 0.4 L (1.0-2.2) 03/01/23 03/01/23 Range/Units 20:00 20:00 WBC (4.8-10.8) x10^3/uL RBC (4.70-6.10) 10^6/uL Hgb (14.0-18.0) g/dL Hct (42.0-52.0) % MCV (80.0-94.0) fL MCH (27.0-31.0) pg MCHC (32.0-36.0) g/dL RDW (12.0-15.0) % Plt Count (130-450) 10^3/uL MPV Neut # (Auto) (1.5-6.6) 10^3/uL Lymph # (Auto) (1.5-3.5) 10^3/uL [place] # (Auto) (0.0-1.0) 10^3/uL Eos # (Auto) (0.0-0.7) 10^3/uL Baso # (Auto) (0.0-0.1) 10^3/uL Absolute Nucleated RBC x10^3/uL Nucleated RBC % /100WBC Manual Slide Review WBC Morphology (NORMAL) Platelet Estimate (NORMAL) Platelet Morphology (NORMAL) RBC Morph Micro Appear (NORMAL) PT (9.9-12.6) secs INR (0.8-1.2) VBG pH 7.520 H (7.31-7.41) Ionized Calcium 1.03 L (1.15-1.33) mmol/L Sodium (135-145) mmol/L Potassium (3.5-5.0) mmol/L Chloride (101-111) mmol/L Carbon Dioxide (21-32) mmol/L Anion Gap (6-13) BUN (6-20) mg/dL Creatinine (0.6-1.2) mg/dL Estimated GFR (MDRD) (>89) Glucose (70-100) mg/dL Calcium (8.5-10.3) mg/dL Phosphorus (2.5-4.6) mg/dL Magnesium 1.9 (1.7-2.8) mg/dL Total Bilirubin (0.2-1.0) mg/dL AST (10-42) IU/L ALT (10-60) IU/L Alkaline Phosphatase (42-121) IU/L Ammonia (7-35) umol/L B-Natriuretic Peptide (5-100) pg/mL Total Protein (6.7-8.2) g/dL Albumin (3.2-5.5) g/dL Globulin (2.1-4.2) g/dL Albumin/Globulin Ratio (1.0-2.2) Assessment/Plan - Problem List (1) Alcohol abuse with withdrawal Impression: The patient was started on CIWA protocol and received Ativan, he is scoring between 2 and 6 Plan: Continue daily Thiamine We will start low doses of oral Librium scheduled and continue with CIWA protocol as needed. We will request PT and OT to eval He can be transferred [facility] (2) Liver disease due to alcohol Conclusion/Plan: Abdomen/pelvis CT was read as having moderate to large amount of ascites. His liver appeared cirrhotic. He has a very elevated INR consistent with poor liver synthesis ability. He needed to receive FFP. 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 He has an elevated bilirubin and has scleral and skin icterus Plan: Continue daily Thiamine 100 mg p.o. We will continue with po Lactulose and titrate to 3 loose BMs/day max. Follow ammonia level daily We will request Social Work consult to discuss resources with him going forward for abstaining from alcohol abuse. (3) Alcoholic hepatitis with ascites Conclusion/Plan: His Maddrey discriminate function is 87.3 suggesting poor prognosis. Plan: Will order dosing pentoxifylline now that he is taking p.o. Will consider therapeutic tap of ascites when IR is available, since he does appear to me to have dyspnea from a distended abdomen. (4) Elevated INR Conclusion/Plan: Secondary to liver disease. All labs were reviewed. He got FFP and vitamin K and INR went from 2.7 at admission >> 2.6>> 2.0 today. Plan: Will monitor INR for possible further need for FFP or vit K. (5) Gastrointestinal hemorrhage with hematemesis Impression: Pt presented with hematemesis. His abdomen CT showed large distal esophageal varices. He was seen in consultation by general surgeon who did EGD, which showed esophageal varices from cirrhosis, but they were not the reason for his anemia and GI blood loss. He was found to have a friable esophagitis, due either to batsheva or gastro-esophageal reflux along with his coagulopathy, and this combination caused his presenting symptoms. Empiric IV octreotide and IV Rocephin for possibility of variceal bleed, were stopped Plan: Follow hemoglobin daily, transfuse if under 7 or if symptomatic under 8 Continue with the sucralfate and Protonix meds The general surgeon agreed that his clear liquid diet could be advanced (6) Symptomatic anemia Conclusion/Plan: Patient was transfused 4 units PRBC. All labs were reviewed. Hgb went from 3.9 at admission >> 7.6>> 8.3>> 7.5>> 8 today. Source of his anemia is GI bleed from his severe gastritis and esophagitis, on top of low plts. Plan: Follow hemoglobin daily, transfuse if under 7 or if symptomatic under 8 Change IV Lasix to p.o. Lasix We will obtain an Echocardiogram to evaluate for alcoholic cardiomyopathy (7) Electrolyte abnormality Conclusion/Plan: Patient did present with hypokalemia and hypomagnesemia, c/w poor diet in an alcoholic. Plan Follow BMP and mg, calcium, phosphate levels daily, and replace if low
[2023-03-02] MEDS ORDERED: MIDODRINE 2.5 MG TABLET PO PRN (22:14)
[2023-03-03 05:10] LABS: BASOPHILS % (AUTO) 0.9 %; EOSINOPHILS % (AUTO) 3.5 %; HCT - HEMATOCRIT 26.6 % (42.0-52.0); HGB - HEMOGLOBIN 7.9 g/dL (14.0-18.0); LYMPHOCYTES % (AUTO) 18.6 %; MEAN CORPUSCULAR HEMOGLOBIN 27.9 pg (27.0-31.0); MEAN CORPUSCULAR HGB CONC 29.7 g/dL (32.0-36.0); NEUTROPHILS % (AUTO) 59.3 %; PLT - PLATELET COUNT 82 10^3/uL (130-450); RED BLOOD COUNT 2.83 10^6/uL (4.70-6.10); WHITE BLOOD COUNT 10.4 x10^3/uL (4.8-10.8)
[2023-03-03] MEDS: chlordiazePOXIDE 5 MG CAPSULE PO SCH ×3 (05:12→21:38)
[2023-03-03 05:13] LABS: ABNORMAL LYMPHS % (MANUAL) 0 %
[2023-03-03 05:15] LABS: INR 2.7 (0.8-1.2); PT - PROTHROMBIN TIME 28.4 secs (9.9-12.6)
[2023-03-03 05:19] LABS: ALBUMIN/GLOBULIN RATIO 0.4 (1.0-2.2); BILIRUBIN,TOTAL 6.9 mg/dL (0.2-1.0); CALCIUM 7.8 mg/dL (8.5-10.3); CREATININE 0.7 mg/dL (0.6-1.2); POTASSIUM 3.8 mmol/L (3.5-5.0); TOTAL PROTEIN 6.7 g/dL (6.7-8.2)
[2023-03-03 05:24] LABS: BAND NEUTROPHILS % (MANUAL) 1 %; BASOPHILS # (MANUAL) 0.2 10^3/uL (0-0.1); BASOPHILS % (MANUAL) 2 %; EOSINOPHILS # (MANUAL) 0.3 10^3/uL (0-0.7); LYMPHOCYTES # (MANUAL) 1.9 10^3/uL (1.5-3.5); LYMPHOCYTES % (MANUAL) 18 %; MONOCYTES # (MANUAL) 1.1 10^3/uL (0.0-1.0); NEUTROPHILS # (MANUAL) 6.9 10^3/uL (1.5-6.6)
[2023-03-03 05:26] LABS: DIFFERENTIAL COMMENT MANUAL DIFFERENTIAL; PLATELET ESTIMATE, MANUAL DECREASED (<130,000) (NORMAL); PLATELET MORPHOLOGY NORMAL APPEARANCE (NORMAL); WBC MORPHOLOGY (MULTIPLE) NORMAL APPEARANCE (NORMAL)
[2023-03-03] MEDS: SUCRALFATE 1 GM/10 ML UDC PO SCH ×4 (06:59→21:38)
[2023-03-03] MEDS: LACTULOSE 10 GM /15 ML UDC PO SCH ×2 (08:17→17:06)
[2023-03-03] MEDS: nadoloL 20 MG TABLET PO SCH (08:19)
[2023-03-03] MEDS: SPIRONOLACTONE 25 MG TABLET PO SCH (08:19)
[2023-03-03] MEDS: PRENATAL VITAMIN TABLET PO SCH (08:19)
[2023-03-03] MEDS: FUROSEMIDE 40 MG TABLET PO SCH (08:20)
[2023-03-03] MEDS: THIAMINE 100 MG TABLET PO SCH (08:21)
[2023-03-03] MEDS: FLUCONAZOLE 100 MG TABLET PO SCH (08:21)
[2023-03-03] MEDS: PANTOPRAZOLE 40 MG TABLET PO SCH ×2 (08:21→21:38)
[2023-03-03] MEDS: SODIUM CHLORIDE FLUSH 0.9% 10 ML SYRINGE IVP SCH ×2 (08:24→21:38)
--- NOTE | 2023-03-03 08:40 | PROVIDER PROGRESS NOTE ---
Assessment/Plan - Problem List (1) Alcohol abuse with withdrawal Assessment/Plan: Plan: The patient was started on CIWA protocol and received Ativan, he was also started on Librium. 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 His liver appeared cirrhotic. He has a very elevated INR consistent with poor liver synthesis ability. He needed to receive FFP. 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 He has an elevated bilirubin and has scleral and skin icterus Plan: Continue daily Thiamine 100 mg p.o. We will continue with po Lactulose and titrate to 3 loose BMs/day max. Follow Ammonia level daily We will request Social Work consult to discuss resources with him going forward for abstaining from alcohol abuse. (3) Alcoholic hepatitis with ascites Conclusion/Plan: His Maddrey discriminate function is 87.3 suggesting poor prognosis. Plan: His abdominal distension is not worsening on L:asix and Spironolactone, so no paracentesis is now planned (4) Elevated INR Conclusion/Plan: Secondary to liver disease. All labs were reviewed. He got FFP and vitamin K and INR went from 2.7 at admission >> 2.6>> 2.0 today. Plan: Will monitor INR intermittently for possible further need for FFP or vit K. (5) Gastrointestinal hemorrhage with hematemesis Impression: Pt presented with hematemesis. His abdomen CT showed large distal esophageal varices. He was seen in consultation by general surgeon who did EGD, which showed esophageal varices from cirrhosis, but they were not the reason for his anemia and GI blood loss. He was found to have a friable esophagitis, due either to batsheva or gastro-esophageal reflux along with his coagulopathy, and this combination caused his presenting symptoms. Empiric IV octreotide and IV Rocephin for possibility of variceal bleed, were stopped He is tolerating his diry being advanced Plan: Follow hemoglobin daily, transfuse if under 7 or if symptomatic under 8 Continue with the sucralfate and Protonix meds (6) Symptomatic anemia Conclusion/Plan: Patient was transfused 4 units PRBC. All labs were reviewed. Hgb went from 3.9 at admission >> 7.6>> 8.3>> 7.5>> 8 today. Source of his anemia is GI bleed from his severe gastritis and esophagitis, on top of low plts. Plan: Follow hemoglobin daily, transfuse if under 7 or if symptomatic under 8 Change IV Lasix to p.o. Lasix We will obtain an Echocardiogram to evaluate for alcoholic cardiomyopathy (7) Electrolyte abnormality Conclusion/Plan: Patient did present with hypokalemia and hypomagnesemia, c/w poor diet in an alcoholic. Plan Follow BMP and mg, calcium, phosphate levels daily, and replace if low - Current Meds Current Meds: Current Medications Generic Name Dose Route Start Last Admin Trade Name Freq PRN Reason Stop Dose Admin Fluconazole 400 mg 02/28/23 09:00 03/03/23 08:21 Fluconazole 100 Mg Tablet PO 400 mg DAILY ANDREW Administration Furosemide 40 mg 03/02/23 09:00 03/03/23 08:20 Furosemide 40 Mg Tablet PO 40 mg DAILY ANDREW Administration Lactulose 10 gm 03/01/23 13:00 03/03/23 08:17 Lactulose 10 Gm /15 Ml Udc PO 10 gm DAILY ANDREW Administration Lorazepam 2 - 20 mg 02/27/23 13:47 03/02/23 00:46 Lorazepam 2 Mg/Ml Vial IVP 2 mg Q15M PRN Administration RASS > 0 Protocol Nadolol 10 mg 03/03/23 09:00 03/03/23 08:19 Nadolol 20 Mg Tablet PO 10 mg DAILY ANDREW Administration Pantoprazole Sodium 40 mg 02/28/23 11:00 03/03/23 08:21 Pantoprazole 40 Mg Tablet PO 40 mg BID ANDREW Administration Multivit/Folic Acid/Iron 1 tab 03/02/23 08:00 03/03/23 08:19 Vitamin Tablet PO 1 tab DAILYWM ANDREW Administration Sodium Chloride 10 ml 02/27/23 17:00 03/03/23 08:24 Sodium Chloride Flush 0.9% 10 Ml Syringe IVP 20 ml 0100,0900,1700 ANDREW Administration Sodium Chloride 10 ml 02/27/23 13:40 02/28/23 19:40 Sodium Chloride Flush 0.9% 10 Ml Syringe IVP 10 ml PRN PRN Administration NEEDED PER PROVIDER ORDERS Spironolactone 25 mg 02/28/23 15:44 03/03/23 08:19 Spironolactone 25 Mg Tablet PO 25 mg DAILY ANDREW Administration Sucralfate 1 gm 02/28/23 11:00 03/03/23 06:59 Sucralfate 1 Gm/10 Ml Udc PO 1 gm 0700,1100,1600,2200 ANDREW Administration Thiamine HCl 100 mg 03/01/23 09:00 03/03/23 08:21 Thiamine 100 Mg Tablet PO 100 mg DAILY ANDREW Administration - Lab Result Fish Bone Diagrams: 03/05/23 09:20 03/06/23 04:57 - Additional Planning My Orders: My Active Orders 03/02/23 08:00 Vitamin [Trinatal Rx 1] 1 tab PO DAILYWM 03/02/23 09:00 Furosemide [Lasix] 40 mg PO DAILY 03/02/23 12:12 Miscellaenous Nursing Order [RC] QSHIFT 03/02/23 18:06 Telemetry- [RC] Q4HR 03/03/23 09:00 nadoloL [Corgard] 10 mg PO DAILY 03/03/23 14:00 Echo Transthoracic Complete [ECHO] Routine chlordiazePOXIDE [Librium] 10 mg PO TID 03/04/23 05:00 MAGNESIUM [CHEM] DAILYLAB Subjective - Subjective Patient Reports: No Complaints Nursing Reports: Other (Mostly sleepy today) Objective Vital Signs: Vital Signs - 24 hr 03/02/23 03/02/23 03/02/23 10:00 13:00 16:00 Temperature 37.3 C 36.5 C Heart Rate [ 76 78 78 Monitoring electrodes] Respiratory 24 22 21 Rate Blood Pressure 112/74 95/73 113/79 [Right Brachial artery] O2 Saturation 94 95 93 03/02/23 03/02/23 03/03/23 20:00 23:05 00:00 Temperature 36.7 C Heart Rate [ 85 88 93 Monitoring electrodes] Respiratory 21 21 29 H Rate Blood Pressure 109/67 105/59 L 127/77 [Right Brachial artery] O2 Saturation 96 93 97 03/03/23 03/03/23 04:00 07:54 Temperature 36.8 C Heart Rate [ 86 84 Monitoring electrodes] Respiratory 22 22 Rate Blood Pressure 122/78 116/75 [Right Brachial artery] O2 Saturation 95 94 Oxygen O2 Source Room air I&O (Last 24 Hrs): Intake and Output Totals x24h 03/01/23 03/02/23 03/03/23 23:59 23:59 23:59 Intake Total 2190 720 Output Total 3186 0905 Balance -995 -1205 General: Other (Lethargic, but awakens and has normal speech, however he is bradykinetic) HEENT: Mucous membr. moist/pink Neck: Supple, No JVD Neuro: Disoriented, Other (Lethargic but awakens and is bradykinetic) Cardiovascular: No murmurs Respiratory: No respiratory distress Abdomen: Soft Extremities: No clubbing, No edema - Results Results: Laboratory Results WBC 10.4 x10^3/uL (4.8-10.8) 03/03/23 04:54 RBC 2.83 10^6/uL (4.70-6.10) L 03/03/23 04:54 Hgb 7.9 g/dL (14.0-18.0) L 03/03/23 04:54 Hct 26.6 % (42.0-52.0) L 03/03/23 04:54 MCV 94.0 fL (80.0-94.0) 03/03/23 04:54 MCH 27.9 pg (27.0-31.0) 03/03/23 04:54 MCHC 29.7 g/dL (32.0-36.0) L 03/03/23 04:54 RDW 24.0 % (12.0-15.0) H 03/03/23 04:54 Plt Count 82 10^3/uL (130-450) L 03/03/23 04:54 MPV TNP 03/03/23 04:54 Neut # (Auto) Not Reportable 03/03/23 04:54 Lymph # (Auto) Not Reportable 03/03/23 04:54 [place] # (Auto) Not Reportable 03/03/23 04:54 Eos # (Auto) Not Reportable 03/03/23 04:54 Baso # (Auto) Not Reportable 03/03/23 04:54 Absolute Nucleated RBC Not Reportable 03/03/23 04:54 Total Counted 100 03/03/23 04:54 Band Neuts % (Manual) 1 % (0-10) 03/03/23 04:54 Abnorm Lymph % (Manual) 0 % 03/03/23 04:54 Nucleated RBC % Not Reportable 03/03/23 04:54 Neutrophils # (Manual) 6.9 10^3/uL (1.5-6.6) H 03/03/23 04:54 Lymphocytes # (Manual) 1.9 10^3/uL (1.5-3.5) 03/03/23 04:54 Monocytes # (Manual) 1.1 10^3/uL (0.0-1.0) H 03/03/23 04:54 Eosinophils # (Manual) 0.3 10^3/uL (0-0.7) 03/03/23 04:54 Basophils # (Manual) 0.2 10^3/uL (0-0.1) H 03/03/23 04:54 Differential Comment MANUAL DIFFERENTIAL 03/03/23 04:54 Manual Slide Review Indicated 03/02/23 01:42 WBC Morphology NORMAL APPEARANCE (NORMAL) 03/03/23 04:54 Platelet Estimate DECREASED (<130,000) (NORMAL) 03/03/23 04:54 Platelet Morphology NORMAL APPEARANCE (NORMAL) 03/03/23 04:54 RBC Morph Micro Appear 3+ ANISOCYTOSIS (NORMAL) 2+ HYPOCHROMASIA (NORMAL) 1+ ACANTHOCYTES (NORMAL) 1+ SCHISTOCYTES (NORMAL) 03/03/23 04:54 RBC Morph Micro Appear 3+ ANISOCYTOSIS (NORMAL) 2+ HYPOCHROMASIA (NORMAL) 1+ ACANTHOCYTES (NORMAL) 1+ SCHISTOCYTES (NORMAL) 03/03/23 04:54 RBC Morph Micro Appear 3+ ANISOCYTOSIS (NORMAL) 2+ HYPOCHROMASIA (NORMAL) 1+ ACANTHOCYTES (NORMAL) 1+ SCHISTOCYTES (NORMAL) 03/03/23 04:54 RBC Morph Micro Appear 3+ ANISOCYTOSIS (NORMAL) 2+ HYPOCHROMASIA (NORMAL) 1+ ACANTHOCYTES (NORMAL) 1+ SCHISTOCYTES (NORMAL) 03/03/23 04:54 PT 28.4 secs (9.9-12.6) H 03/03/23 04:54 INR 2.7 (0.8-1.2) H 03/03/23 04:54 APTT 31.8 secs (24.9-33.3) 03/01/23 00:13 VBG pH 7.513 (7.31-7.41) H 03/02/23 01:42 Ionized Calcium 1.08 mmol/L (1.15-1.33) L 03/02/23 01:42 Sodium 137 mmol/L (135-145) 03/03/23 04:54 Potassium 3.8 mmol/L (3.5-5.0) 03/03/23 04:54 Chloride 105 mmol/L (101-111) 03/03/23 04:54 Carbon Dioxide 26 mmol/L (21-32) 03/03/23 04:54 Anion Gap 6.0 (6-13) 03/03/23 04:54 BUN 9 mg/dL (6-20) 03/03/23 04:54 Creatinine 0.7 mg/dL (0.6-1.2) 03/03/23 04:54 Estimated GFR (MDRD) 115 (>89) 03/03/23 04:54 Glucose 102 mg/dL (70-100) H 03/03/23 04:54 POC Whole Bld Glucose 113 mg/dL (70 - 100) H 02/27/23 23:26 Calcium 7.8 mg/dL (8.5-10.3) L 03/03/23 04:54 Phosphorus 2.5 mg/dL (2.5-4.6) 03/02/23 01:42 Magnesium 2.1 mg/dL (1.7-2.8) 03/03/23 04:54 Total Bilirubin 6.9 mg/dL (0.2-1.0) H 03/03/23 04:54 AST 46 IU/L (10-42) H 03/03/23 04:54 ALT 18 IU/L (10-60) 03/03/23 04:54 Alkaline Phosphatase 100 IU/L (42-121) 03/03/23 04:54 Ammonia 78.5 umol/L (7-35) H 03/02/23 01:42 Troponin I High Sens 13.5 ng/L (2.3-19.7) 02/27/23 13:43 B-Natriuretic Peptide 695 pg/mL (5-100) H 03/02/23 01:42 Total Protein 6.7 g/dL (6.7-8.2) 03/03/23 04:54 Albumin 2.0 g/dL (3.2-5.5) L 03/03/23 04:54 Globulin 4.7 g/dL (2.1-4.2) H 03/03/23 04:54 Albumin/Globulin Ratio 0.4 (1.0-2.2) L 03/03/23 04:54 Lipase 76 U/L (22-51) H 02/26/23 19:24 Urine Color BROWN 02/27/23 14:04 Urine Clarity CLEAR (CLEAR) 02/27/23 14:04 Urine pH 5.5 PH (5.0-7.5) 02/27/23 14:04 Ur Specific [place] 1.025 (1.002-1.030) 02/27/23 14:04 Urine Protein TRACE mg/dL (NEGATIVE) 02/27/23 14:04 Urine Glucose (UA) NEGATIVE mg/dL (NEGATIVE) 02/27/23 14:04 Urine Ketones TRACE mg/dL (NEGATIVE) 02/27/23 14:04 Urine Occult Blood NEGATIVE (NEGATIVE) 02/27/23 14:04 Urine Nitrite POSITIVE (NEGATIVE) H 02/27/23 14:04 Urine Bilirubin MODERATE (NEGATIVE) H 02/27/23 14:04 Urine Urobilinogen >=8.0 E.U./dL (NORMAL) H 02/27/23 14:04 Ur Leukocyte Esterase TRACE (NEGATIVE) H 02/27/23 14:04 Urine RBC 0-5 /HPF (0-5) 02/27/23 14:04 Urine WBC 0-3 /HPF (0-3) 02/27/23 14:04 Ur Squamous Epith Cells RARE Squamous (<= Few) 02/27/23 14:04 Urine Bacteria Few /HPF (None Seen) 02/27/23 14:04 Ur Microscopic Review INDICATED 02/27/23 14:04 Urine Culture Comments INDICATED 02/27/23 14:04 Nasal Screen MRSA (PCR) NEGATIVE (NEGATIVE) 02/27/23 14:04 Ethyl Alcohol 82.3 mg/dL 02/26/23 19:24 Blood Type O NEGATIVE 02/26/23 19:46 Blood Type Recheck O NEGATIVE 02/26/23 19:24 Antibody Screen NEGATIVE 02/26/23 19:46 Crossmatch IS Only See Detail 02/26/23 19:46
[2023-03-04] MEDS: SODIUM CHLORIDE FLUSH 0.9% 10 ML SYRINGE IVP SCH ×3 (01:31→21:12)
[2023-03-04 05:19] LABS: BILIRUBIN,DIRECT 2.4 mg/dL (0.1-0.5); CALCIUM 7.8 mg/dL (8.5-10.3); CREATININE 0.7 mg/dL (0.6-1.2); MAGNESIUM 1.8 mg/dL (1.7-2.8); POTASSIUM 3.6 mmol/L (3.5-5.0); TOTAL PROTEIN 6.6 g/dL (6.7-8.2)
[2023-03-04] MEDS: chlordiazePOXIDE 5 MG CAPSULE PO SCH ×3 (06:12→21:08)
[2023-03-04] MEDS: SUCRALFATE 1 GM/10 ML UDC PO SCH ×4 (06:12→21:08)
--- NOTE | 2023-03-04 08:03 | PROVIDER PROGRESS NOTE ---
Assessment/Plan - Problem List (1) Alcohol abuse with withdrawal Assessment/Plan: All labs were reviewed. His ammonia level was 78 yesterday and increased to 95 today. Yesterday there were no BMs and therefore yesterday his Lactulose was increased from daily to twice daily Plan: I think the elevated ammonia level is a delayed lab result from yesterday's lack of BMs. So I will continue with BID lactulose. 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 His liver appeared cirrhotic. He has an elevated INR consistent with poor liver synthesis ability. He needed to receive FFP. 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 He has an elevated bilirubin and has scleral and skin icterus, bili has dropped daily since admission Plan: Continue daily Thiamine 100 mg p.o. We will continue with po Lactulose and titrate to 3 loose BMs/day max. Follow ammonia level daily Continue with p.o. Lasix and p.o. Spironolactone RehabContinue working with PT and OT. SNF is recommended and he agrees. SW to choice him (3) Alcoholic hepatitis with ascites Conclusion/Plan: His Maddrey discriminate function is 87.3 suggesting poor prognosis. Plan: Continue with p.o. Lasix and p.o. Spironolactone (4) Elevated INR Conclusion/Plan: Secondary to liver disease. All labs were reviewed. He got FFP and vitamin K and INR went from 2.7 at admission >> 2.6>> 2.0>> 2.4>> 2.7 yesterday Plan: Will monitor INR intermittently for possible further need for FFP or vit K. (5) Gastrointestinal hemorrhage with hematemesis Impression: Pt presented with hematemesis. His abdomen CT showed large distal esophageal varices. He was seen in consultation by general surgeon who did EGD, which showed esophageal varices from cirrhosis, but they were not the reason for his anemia and GI blood loss. He was found to have a friable esophagitis, due either to batsheva or gastro-esophageal reflux along with his coagulopathy, and this combination caused his presenting symptoms. Empiric IV octreotide and IV Rocephin for possibility of variceal bleed, were stopped. His diet has been advanced slowly and he is tolerating it, no nausea, no rebleeds Plan: Follow hemoglobin daily, transfuse if under 7 or if symptomatic under 8 Continue with the sucralfate and Protonix meds (6) Symptomatic anemia Conclusion/Plan: Patient was transfused 4 units PRBC. All labs were reviewed. Hgb went from 3.9 at admission >> 7.6>> 8.3>> 7.5>> 8 and has been stable at 8 for 3 days Source of his anemia is GI bleed from his severe gastritis and esophagitis, on top of low plts. Plan: Follow hemoglobin daily, transfuse if under 7 or if symptomatic and Hgb under 8 (7) Electrolyte abnormality Conclusion/Plan: Patient did present with hypokalemia and hypomagnesemia, c/w poor diet in an alcoholic. Plan Following BMP and mg, calcium, phosphate levels daily, and replace if low - Current Meds Current Meds: Current Medications Generic Name Dose Route Start Last Admin Trade Name Freq PRN Reason Stop Dose Admin Chlordiazepoxide HCl 10 mg 03/03/23 14:00 03/04/23 06:12 Chlordiazepoxide 5 Mg Capsule PO 10 mg TID ANDREW Administration Fluconazole 400 mg 02/28/23 09:00 03/03/23 08:21 Fluconazole 100 Mg Tablet PO 400 mg DAILY ANDREW Administration Furosemide 40 mg 03/02/23 09:00 03/03/23 08:20 Furosemide 40 Mg Tablet PO 40 mg DAILY ANDREW Administration Lactulose 10 gm 03/03/23 17:00 03/03/23 17:06 Lactulose 10 Gm /15 Ml Udc PO 10 gm BIDWM ANDREW Administration Lorazepam 2 - 20 mg 02/27/23 13:47 03/02/23 00:46 Lorazepam 2 Mg/Ml Vial IVP 2 mg Q15M PRN Administration RASS > 0 Protocol Nadolol 10 mg 03/03/23 09:00 03/03/23 08:19 Nadolol 20 Mg Tablet PO 10 mg DAILY ANDREW Administration Pantoprazole Sodium 40 mg 02/28/23 11:00 03/03/23 21:38 Pantoprazole 40 Mg Tablet PO 40 mg BID ANDREW Administration Multivit/Folic Acid/Iron 1 tab 03/02/23 08:00 03/03/23 08:19 Vitamin Tablet PO 1 tab DAILYWM ANDREW Administration Sodium Chloride 10 ml 02/27/23 17:00 03/04/23 01:31 Sodium Chloride Flush 0.9% 10 Ml Syringe IVP 10 ml 0100,0900,1700 ANDREW Administration Sodium Chloride 10 ml 02/27/23 13:40 02/28/23 19:40 Sodium Chloride Flush 0.9% 10 Ml Syringe IVP 10 ml PRN PRN Administration NEEDED PER PROVIDER ORDERS Spironolactone 25 mg 02/28/23 15:44 03/03/23 08:19 Spironolactone 25 Mg Tablet PO 25 mg DAILY ANDREW Administration Sucralfate 1 gm 02/28/23 11:00 03/04/23 06:12 Sucralfate 1 Gm/10 Ml Udc PO 1 gm 0700,1100,1600,2200 ANDREW Administration Thiamine HCl 100 mg 03/01/23 09:00 03/03/23 08:21 Thiamine 100 Mg Tablet PO 100 mg DAILY ANDREW Administration - Lab Result Fish Bone Diagrams: 03/03/23 04:54 03/04/23 04:57 - Additional Planning My Orders: My Active Orders 03/03/23 09:00 nadoloL [Corgard] 10 mg PO DAILY 03/03/23 14:00 chlordiazePOXIDE [Librium] 10 mg PO TID 03/03/23 17:00 Lactulose [Enulose] 10 gm PO BIDWM 03/05/23 05:00 BMP - BASIC METABOLIC PANEL [CHEM] DAILYLAB LIVER PANEL [CHEM] DAILYLAB 03/06/23 05:00 BMP - BASIC METABOLIC PANEL [CHEM] DAILYLAB LIVER PANEL [CHEM] DAILYLAB Subjective - Subjective Nursing Reports: Other (He is asleep and hard to awaken, this is after midday dose of scheduled Librium) Objective Vital Signs: Vital Signs - 24 hr 03/03/23 03/03/23 03/03/23 12:00 16:00 20:00 Temperature 37.4 C 37.0 C 37.1 C Heart Rate [ 87 85 Brachial] Heart Rate [ 86 Monitoring electrodes] Respiratory 23 20 24 Rate Blood Pressure 121/76 100/59 L 124/67 [Right Brachial artery] O2 Saturation 95 96 96 03/04/23 03/04/23 00:00 04:00 Temperature 37.3 C 36.8 C Heart Rate [ 87 88 Brachial] Heart Rate [ Monitoring electrodes] Respiratory 18 18 Rate Blood Pressure 116/65 126/76 [Right Brachial artery] O2 Saturation 94 93 Oxygen O2 Source Room air I&O (Last 24 Hrs): Intake and Output Totals x24h 03/02/23 03/03/23 03/04/23 23:59 23:59 23:59 Intake Total 720 724 Output Total 1925 100 Balance -1205 724 -100 General: Other (Lethargic (after Librium)) HEENT: Mucous membr. moist/pink, Other (Icteric skin and sclerae) Neuro: Other (Letharic, no tremor while asleep) Cardiovascular: Regular rate Respiratory: No respiratory distress Abdomen: Soft, Other (Mildly distended, fluid wave present, liver edge palpable) Extremities: No clubbing, No edema, No tenderness/swelling - Results Results: Laboratory Results WBC 10.4 x10^3/uL (4.8-10.8) 03/03/23 04:54 RBC 2.83 10^6/uL (4.70-6.10) L 03/03/23 04:54 Hgb 7.9 g/dL (14.0-18.0) L 03/03/23 04:54 Hct 26.6 % (42.0-52.0) L 03/03/23 04:54 MCV 94.0 fL (80.0-94.0) 03/03/23 04:54 MCH 27.9 pg (27.0-31.0) 03/03/23 04:54 MCHC 29.7 g/dL (32.0-36.0) L 03/03/23 04:54 RDW 24.0 % (12.0-15.0) H 03/03/23 04:54 Plt Count 82 10^3/uL (130-450) L 03/03/23 04:54 MPV TNP 03/03/23 04:54 Neut # (Auto) Not Reportable 03/03/23 04:54 Lymph # (Auto) Not Reportable 03/03/23 04:54 [place] # (Auto) Not Reportable 03/03/23 04:54 Eos # (Auto) Not Reportable 03/03/23 04:54 Baso # (Auto) Not Reportable 03/03/23 04:54 Absolute Nucleated RBC Not Reportable 03/03/23 04:54 Total Counted 100 03/03/23 04:54 Band Neuts % (Manual) 1 % (0-10) 03/03/23 04:54 Abnorm Lymph % (Manual) 0 % 03/03/23 04:54 Nucleated RBC % Not Reportable 03/03/23 04:54 Neutrophils # (Manual) 6.9 10^3/uL (1.5-6.6) H 03/03/23 04:54 Lymphocytes # (Manual) 1.9 10^3/uL (1.5-3.5) 03/03/23 04:54 Monocytes # (Manual) 1.1 10^3/uL (0.0-1.0) H 03/03/23 04:54 Eosinophils # (Manual) 0.3 10^3/uL (0-0.7) 03/03/23 04:54 Basophils # (Manual) 0.2 10^3/uL (0-0.1) H 03/03/23 04:54 Differential Comment MANUAL DIFFERENTIAL 03/03/23 04:54 Manual Slide Review Indicated 03/02/23 01:42 WBC Morphology NORMAL APPEARANCE (NORMAL) 03/03/23 04:54 Platelet Estimate DECREASED (<130,000) (NORMAL) 03/03/23 04:54 Platelet Morphology NORMAL APPEARANCE (NORMAL) 03/03/23 04:54 RBC Morph Micro Appear 3+ ANISOCYTOSIS (NORMAL) 2+ HYPOCHROMASIA (NORMAL) 1+ ACANTHOCYTES (NORMAL) 1+ SCHISTOCYTES (NORMAL) 03/03/23 04:54 RBC Morph Micro Appear 3+ ANISOCYTOSIS (NORMAL) 2+ HYPOCHROMASIA (NORMAL) 1+ ACANTHOCYTES (NORMAL) 1+ SCHISTOCYTES (NORMAL) 03/03/23 04:54 RBC Morph Micro Appear 3+ ANISOCYTOSIS (NORMAL) 2+ HYPOCHROMASIA (NORMAL) 1+ ACANTHOCYTES (NORMAL) 1+ SCHISTOCYTES (NORMAL) 03/03/23 04:54 RBC Morph Micro Appear 3+ ANISOCYTOSIS (NORMAL) 2+ HYPOCHROMASIA (NORMAL) 1+ ACANTHOCYTES (NORMAL) 1+ SCHISTOCYTES (NORMAL) 03/03/23 04:54 PT 28.4 secs (9.9-12.6) H 03/03/23 04:54 INR 2.7 (0.8-1.2) H 03/03/23 04:54 APTT 31.8 secs (24.9-33.3) 03/01/23 00:13 VBG pH 7.513 (7.31-7.41) H 03/02/23 01:42 Ionized Calcium 1.08 mmol/L (1.15-1.33) L 03/02/23 01:42 Sodium 139 mmol/L (135-145) 03/04/23 04:57 Potassium 3.6 mmol/L (3.5-5.0) 03/04/23 04:57 Chloride 109 mmol/L (101-111) 03/04/23 04:57 Carbon Dioxide 25 mmol/L (21-32) 03/04/23 04:57 Anion Gap 5.0 (6-13) L 03/04/23 04:57 BUN 8 mg/dL (6-20) 03/04/23 04:57 Creatinine 0.7 mg/dL (0.6-1.2) 03/04/23 04:57 Estimated GFR (MDRD) 115 (>89) 03/04/23 04:57 Glucose 137 mg/dL (70-100) H 03/04/23 04:57 POC Whole Bld Glucose 113 mg/dL (70 - 100) H 02/27/23 23:26 Calcium 7.8 mg/dL (8.5-10.3) L 03/04/23 04:57 Phosphorus 2.5 mg/dL (2.5-4.6) 03/02/23 01:42 Magnesium 1.8 mg/dL (1.7-2.8) 03/04/23 04:57 Total Bilirubin 6.0 mg/dL (0.2-1.0) H 03/04/23 04:57 Direct Bilirubin 2.4 mg/dL (0.1-0.5) H 03/04/23 04:57 AST 46 IU/L (10-42) H 03/04/23 04:57 ALT 17 IU/L (10-60) 03/04/23 04:57 Alkaline Phosphatase 91 IU/L (42-121) 03/04/23 04:57 Ammonia 95.5 umol/L (7-35) H* 03/04/23 04:57 Troponin I High Sens 13.5 ng/L (2.3-19.7) 02/27/23 13:43 B-Natriuretic Peptide 695 pg/mL (5-100) H 03/02/23 01:42 Total Protein 6.6 g/dL (6.7-8.2) L 03/04/23 04:57 Albumin 2.0 g/dL (3.2-5.5) L 03/04/23 04:57 Globulin 4.6 g/dL (2.1-4.2) H 03/04/23 04:57 Albumin/Globulin Ratio 0.4 (1.0-2.2) L 03/03/23 04:54 Lipase 76 U/L (22-51) H 02/26/23 19:24 Urine Color BROWN 02/27/23 14:04 Urine Clarity CLEAR (CLEAR) 02/27/23 14:04 Urine pH 5.5 PH (5.0-7.5) 02/27/23 14:04 Ur Specific [place] 1.025 (1.002-1.030) 02/27/23 14:04 Urine Protein TRACE mg/dL (NEGATIVE) 02/27/23 14:04 Urine Glucose (UA) NEGATIVE mg/dL (NEGATIVE) 02/27/23 14:04 Urine Ketones TRACE mg/dL (NEGATIVE) 02/27/23 14:04 Urine Occult Blood NEGATIVE (NEGATIVE) 02/27/23 14:04 Urine Nitrite POSITIVE (NEGATIVE) H 02/27/23 14:04 Urine Bilirubin MODERATE (NEGATIVE) H 02/27/23 14:04 Urine Urobilinogen >=8.0 E.U./dL (NORMAL) H 02/27/23 14:04 Ur Leukocyte Esterase TRACE (NEGATIVE) H 02/27/23 14:04 Urine RBC 0-5 /HPF (0-5) 02/27/23 14:04 Urine WBC 0-3 /HPF (0-3) 02/27/23 14:04 Ur Squamous Epith Cells RARE Squamous (<= Few) 02/27/23 14:04 Urine Bacteria Few /HPF (None Seen) 02/27/23 14:04 Ur Microscopic Review INDICATED 02/27/23 14:04 Urine Culture Comments INDICATED 02/27/23 14:04 Nasal Screen MRSA (PCR) NEGATIVE (NEGATIVE) 02/27/23 14:04 Ethyl Alcohol 82.3 mg/dL 02/26/23 19:24 Blood Type O NEGATIVE 02/26/23 19:46 Blood Type Recheck O NEGATIVE 02/26/23 19:24 Antibody Screen NEGATIVE 02/26/23 19:46 Crossmatch IS Only See Detail 02/26/23 19:46
[2023-03-04] MEDS: LACTULOSE 10 GM /15 ML UDC PO SCH ×2 (09:24→16:56)
[2023-03-04] MEDS: FLUCONAZOLE 100 MG TABLET PO SCH (09:24)
[2023-03-04] MEDS: SPIRONOLACTONE 25 MG TABLET PO SCH (09:25)
[2023-03-04] MEDS: PANTOPRAZOLE 40 MG TABLET PO SCH ×2 (09:25→21:08)
[2023-03-04] MEDS: PRENATAL VITAMIN TABLET PO SCH (09:25)
[2023-03-04] MEDS: FUROSEMIDE 40 MG TABLET PO SCH (09:25)
[2023-03-04] MEDS: THIAMINE 100 MG TABLET PO SCH (09:25)
[2023-03-04] MEDS: nadoloL 20 MG TABLET PO SCH (10:36)
[2023-03-04] MEDS: MAGNESIUM OXIDE 400 MG TABLET PO SCH (13:51)
[2023-03-05] MEDS: SODIUM CHLORIDE FLUSH 0.9% 10 ML SYRINGE IVP SCH ×3 (00:27→16:22)
[2023-03-05] MEDS: SUCRALFATE 1 GM/10 ML UDC PO SCH ×4 (06:09→21:04)
[2023-03-05 07:46] LABS: ALBUMIN 1.9 g/dL (3.2-5.5); BILIRUBIN,DIRECT 2.5 mg/dL (0.1-0.5); BILIRUBIN,TOTAL 6.8 mg/dL (0.2-1.0); CALCIUM 7.7 mg/dL (8.5-10.3); CREATININE 0.6 mg/dL (0.6-1.2); POTASSIUM 3.5 mmol/L (3.5-5.0); TOTAL PROTEIN 6.7 g/dL (6.7-8.2)
--- NOTE | 2023-03-05 08:53 | PROVIDER PROGRESS NOTE ---
Assessment/Plan - Problem List (1) Alcohol abuse with withdrawal Assessment/Plan: All labs were reviewed. His ammonia level was 78>> 95>> 85 today. There had been no BMs x sev days so his Lactulose was increased from daily to twice daily Plan: Continue with BID lactulose. Would titrate Lactulose dose up if needed, to achieve 3 soft BMs per day Follow ammonia level daily I will titrate down his Librium from 10 mg 2 times daily to once today, then stop it. Continue daily Thiamine Continue working with PT and OT. Plan will be to go to SNF for PT and OT rehab (2) Weakness Conclusion/Plan: PT and OT approached me each and described that he is more lethargic today, is favoring his left side, may have a facial droop, is more confused and cannot follow directions today. I also got a message today that his niece Aspen Gould spoke to the patient's nurse and reported that over several years he has had increasing paranoia, auditory hallucinations, has "very high highs and very low lows". She said he is easily agitated and does not follow cues or answer questions. A psychiatry evaluation was questioned if it would be needed. Plan: A STAT brain MRI was ordered to evaluate for acute findings. This was negative. I suspect that his elevated Ammonia level and his Librium use are causing the noticably worsened weakness today Continue to work with PT and OT. Librium dose is stopped after this a.m. Once his sensorium is more cleared, I will have our [employer] evaluate him for depression and he will likely need a cognitive evaluation done by OT 3) Liver disease due to alcohol Conclusion/Plan: Abdomen/pelvis CT was read as having moderate to large amount of ascites. His liver appeared cirrhotic. He has an elevated INR , low platelets, elevated ammonia level and elevated LFTs and bili, consistent with liver disease. All labs were reviewed. Today his bilirubin went up slightly, in parallel with the rising ammonia level Plan: Continue daily Thiamine 100 mg p.o. We will continue with po Lactulose and titrate to 3 loose BMs/day max. Follow ammonia level daily Continue with p.o. Lasix and p.o. Spironolactone, but I will decrease the po Lasix from 40 mg daily to 20 mg daily, since he has less ascites on clinical exam for the last 2 days now. Continue working with PT and OT. SNF is recommended by therapists and he agreed. SW to choice him (4) Alcoholic hepatitis with ascites Conclusion/Plan: His Maddrey discriminate function is 87.3 suggesting poor prognosis. Plan: Continue with p.o. Lasix and p.o. Spironolactone, but I will decrease the po Lasix from 40 mg daily to 20 mg daily, since he has less ascites on clinical exam for the last 2 days now. (5) Elevated INR Conclusion/Plan: Secondary to liver disease. All labs were reviewed. He got FFP and vitamin K and INR went from 2.7 at admission >> 2.6>> 2.0>> 2.4>> 2.7>> 2.4 today Plan: Will monitor INR intermittently for possible further need for FFP or vit K. (6) Gastrointestinal hemorrhage with hematemesis Impression: Pt presented with hematemesis. His abdomen CT showed large distal esophageal varices. He was seen in consultation by general surgeon who did EGD, which showed esophageal varices from cirrhosis, but they were not bleeding. He was found to have friable esophagitis and gastritis, due either to batsheva or gastro -esophageal reflux along with his coagulopathy, and this combination caused his presenting symptoms. He was started on meds for gastritis and also antifungal and Sucralfate His diet has been advanced slowly and he is tolerating it, no nausea, no rebleeds Plan: Follow hemoglobin daily, transfuse if under 7 or if symptomatic under 8 Continue with the sucralfate and Protonix meds He has been on minced and moist diet for many days. I will advance this to a regular diet to assess if he can tolerate it before he is discharged. (7) Anemia Conclusion/Plan: Patient was transfused 4 units PRBC. All labs were reviewed. Hgb went from 3.9 at admission >> 7.6>> 8.3>> 7.5>> 8 and has been stable at 8 for 3 days Source of his anemia is GI bleed from his severe gastritis and esophagitis, on top of having low plts and elevated INR. Plan: Follow hemoglobin daily, transfuse if under 7 or if symptomatic and Hgb under 8 - Current Meds Current Meds: Current Medications Generic Name Dose Route Start Last Admin Trade Name Freq PRN Reason Stop Dose Admin Fluconazole 400 mg 02/28/23 09:00 03/04/23 09:24 Fluconazole 100 Mg Tablet PO 400 mg DAILY ANDREW Administration Lactulose 10 gm 03/03/23 17:00 03/04/23 16:56 Lactulose 10 Gm /15 Ml Udc PO 10 gm BIDWM ANDREW Administration Lorazepam 2 - 20 mg 02/27/23 13:47 03/02/23 00:46 Lorazepam 2 Mg/Ml Vial IVP 2 mg Q15M PRN Administration RASS > 0 Protocol Magnesium Oxide 400 mg 03/04/23 12:00 03/04/23 13:51 Magnesium Oxide 400 Mg Tablet PO 400 mg DAILYWM ANDREW Administration Nadolol 10 mg 03/03/23 09:00 03/04/23 10:36 Nadolol 20 Mg Tablet PO 10 mg DAILY ANDREW Administration Pantoprazole Sodium 40 mg 02/28/23 11:00 03/04/23 21:08 Pantoprazole 40 Mg Tablet PO 40 mg BID ANDREW Administration Multivit/Folic Acid/Iron 1 tab 03/02/23 08:00 03/04/23 09:25 Vitamin Tablet PO 1 tab DAILYWM ANDREW Administration Sodium Chloride 10 ml 02/27/23 17:00 03/05/23 00:27 Sodium Chloride Flush 0.9% 10 Ml Syringe IVP 10 ml 0100,0900,1700 ANDREW Administration Sodium Chloride 10 ml 02/27/23 13:40 02/28/23 19:40 Sodium Chloride Flush 0.9% 10 Ml Syringe IVP 10 ml PRN PRN Administration NEEDED PER PROVIDER ORDERS Spironolactone 25 mg 02/28/23 15:44 03/04/23 09:25 Spironolactone 25 Mg Tablet PO 25 mg DAILY ANDREW Administration Sucralfate 1 gm 02/28/23 11:00 03/05/23 06:09 Sucralfate 1 Gm/10 Ml Udc PO 1 gm 0700,1100,1600,2200 ANDREW Administration Thiamine HCl 100 mg 03/01/23 09:00 03/04/23 09:25 Thiamine 100 Mg Tablet PO 100 mg DAILY ANDREW Administration - Lab Result Fish Bone Diagrams: 03/05/23 09:20 03/05/23 07:13 - Additional Planning My Orders: My Active Orders 03/04/23 08:03 Telemetry-Discontinue [RC] .ONCE 03/04/23 12:00 Magnesium Oxide [Mag Ox] 400 mg PO DAILYWM 03/05/23 05:00 AMMONIA [CHEM] Routine 03/05/23 09:00 Furosemide [Lasix] 20 mg PO DAILY chlordiazePOXIDE [Librium] 10 mg PO DAILY 03/05/23 Lunch DIET [Regular Diet] [DIET] 03/06/23 05:00 AMMONIA [CHEM] DAILYLAB BMP - BASIC METABOLIC PANEL [CHEM] DAILYLAB LIVER PANEL [CHEM] DAILYLAB Subjective - Subjective Patient Reports: Other (He is asking me why he is so sleepy.) Objective Vital Signs: Vital Signs - 24 hr 03/04/23 03/04/23 03/05/23 12:00 16:00 00:03 Temperature 36.5 C 36.8 C 36.9 C Heart Rate [ 78 77 87 Brachial] Respiratory 20 20 24 Rate Blood Pressure 127/70 116/65 126/76 [Right Brachial artery] O2 Saturation 95 94 97 03/05/23 08:35 Temperature 36.6 C Heart Rate [ 70 Brachial] Respiratory 18 Rate Blood Pressure 120/68 [Right Brachial artery] O2 Saturation 92 Oxygen O2 Source Room air I&O (Last 24 Hrs): Intake and Output Totals x24h 03/03/23 03/04/23 03/05/23 23:59 23:59 23:59 Intake Total 724 680 120 Output Total 100 Balance 724 580 120 General: Other (Lethargic, Has had leaning to left side) HEENT: Mucous membr. moist/pink Neck: No JVD Neuro: Disoriented, Other (Slow speech. Bradykinetic movements. No facial droop. Tongue is midline. No nystagmus. No tremor.) Cardiovascular: No murmurs Respiratory: No respiratory distress Abdomen: No tenderness, Other (Mildly distended, positive fluid wave) Extremities: No clubbing, No edema, No tenderness/swelling - Results Results: Laboratory Results WBC 10.4 x10^3/uL (4.8-10.8) 03/03/23 04:54 RBC 2.83 10^6/uL (4.70-6.10) L 03/03/23 04:54 Hgb 7.9 g/dL (14.0-18.0) L 03/03/23 04:54 Hct 26.6 % (42.0-52.0) L 03/03/23 04:54 MCV 94.0 fL (80.0-94.0) 03/03/23 04:54 MCH 27.9 pg (27.0-31.0) 03/03/23 04:54 MCHC 29.7 g/dL (32.0-36.0) L 03/03/23 04:54 RDW 24.0 % (12.0-15.0) H 03/03/23 04:54 Plt Count 82 10^3/uL (130-450) L 03/03/23 04:54 MPV TNP 03/03/23 04:54 Neut # (Auto) Not Reportable 03/03/23 04:54 Lymph # (Auto) Not Reportable 03/03/23 04:54 Winkler # (Auto) Not Reportable 03/03/23 04:54 Eos # (Auto) Not Reportable 03/03/23 04:54 Baso # (Auto) Not Reportable 03/03/23 04:54 Absolute Nucleated RBC Not Reportable 03/03/23 04:54 Total Counted 100 03/03/23 04:54 Band Neuts % (Manual) 1 % (0-10) 03/03/23 04:54 Abnorm Lymph % (Manual) 0 % 03/03/23 04:54 Nucleated RBC % Not Reportable 03/03/23 04:54 Neutrophils # (Manual) 6.9 10^3/uL (1.5-6.6) H 03/03/23 04:54 Lymphocytes # (Manual) 1.9 10^3/uL (1.5-3.5) 03/03/23 04:54 Monocytes # (Manual) 1.1 10^3/uL (0.0-1.0) H 03/03/23 04:54 Eosinophils # (Manual) 0.3 10^3/uL (0-0.7) 03/03/23 04:54 Basophils # (Manual) 0.2 10^3/uL (0-0.1) H 03/03/23 04:54 Differential Comment MANUAL DIFFERENTIAL 03/03/23 04:54 Manual Slide Review Indicated 03/02/23 01:42 WBC Morphology NORMAL APPEARANCE (NORMAL) 03/03/23 04:54 Platelet Estimate DECREASED (<130,000) (NORMAL) 03/03/23 04:54 Platelet Morphology NORMAL APPEARANCE (NORMAL) 03/03/23 04:54 RBC Morph Micro Appear 3+ ANISOCYTOSIS (NORMAL) 2+ HYPOCHROMASIA (NORMAL) 1+ ACANTHOCYTES (NORMAL) 1+ SCHISTOCYTES (NORMAL) 03/03/23 04:54 RBC Morph Micro Appear 3+ ANISOCYTOSIS (NORMAL) 2+ HYPOCHROMASIA (NORMAL) 1+ ACANTHOCYTES (NORMAL) 1+ SCHISTOCYTES (NORMAL) 03/03/23 04:54 RBC Morph Micro Appear 3+ ANISOCYTOSIS (NORMAL) 2+ HYPOCHROMASIA (NORMAL) 1+ ACANTHOCYTES (NORMAL) 1+ SCHISTOCYTES (NORMAL) 03/03/23 04:54 RBC Morph Micro Appear 3+ ANISOCYTOSIS (NORMAL) 2+ HYPOCHROMASIA (NORMAL) 1+ ACANTHOCYTES (NORMAL) 1+ SCHISTOCYTES (NORMAL) 03/03/23 04:54 PT 28.4 secs (9.9-12.6) H 03/03/23 04:54 INR 2.7 (0.8-1.2) H 03/03/23 04:54 APTT 31.8 secs (24.9-33.3) 03/01/23 00:13 VBG pH 7.513 (7.31-7.41) H 03/02/23 01:42 Ionized Calcium 1.08 mmol/L (1.15-1.33) L 03/02/23 01:42 Sodium 136 mmol/L (135-145) 03/05/23 07:13 Potassium 3.5 mmol/L (3.5-5.0) 03/05/23 07:13 Chloride 107 mmol/L (101-111) 03/05/23 07:13 Carbon Dioxide 24 mmol/L (21-32) 03/05/23 07:13 Anion Gap 5.0 (6-13) L 03/05/23 07:13 BUN 8 mg/dL (6-20) 03/05/23 07:13 Creatinine 0.6 mg/dL (0.6-1.2) 03/05/23 07:13 Estimated GFR (MDRD) 138 (>89) 03/05/23 07:13 Glucose 94 mg/dL (70-100) 03/05/23 07:13 POC Whole Bld Glucose 113 mg/dL (70 - 100) H 02/27/23 23:26 Calcium 7.7 mg/dL (8.5-10.3) L 03/05/23 07:13 Phosphorus 2.5 mg/dL (2.5-4.6) 03/02/23 01:42 Magnesium 1.8 mg/dL (1.7-2.8) 03/04/23 04:57 Total Bilirubin 6.8 mg/dL (0.2-1.0) H 03/05/23 07:13 Direct Bilirubin 2.5 mg/dL (0.1-0.5) H 03/05/23 07:13 AST 43 IU/L (10-42) H 03/05/23 07:13 ALT 16 IU/L (10-60) 03/05/23 07:13 Alkaline Phosphatase 83 IU/L (42-121) 03/05/23 07:13 Ammonia 95.5 umol/L (7-35) H* 03/04/23 04:57 Troponin I High Sens 13.5 ng/L (2.3-19.7) 02/27/23 13:43 B-Natriuretic Peptide 695 pg/mL (5-100) H 03/02/23 01:42 Total Protein 6.7 g/dL (6.7-8.2) 03/05/23 07:13 Albumin 1.9 g/dL (3.2-5.5) L 03/05/23 07:13 Globulin 4.8 g/dL (2.1-4.2) H 03/05/23 07:13 Albumin/Globulin Ratio 0.4 (1.0-2.2) L 03/03/23 04:54 Lipase 76 U/L (22-51) H 02/26/23 19:24 Urine Color BROWN 02/27/23 14:04 Urine Clarity CLEAR (CLEAR) 02/27/23 14:04 Urine pH 5.5 PH (5.0-7.5) 02/27/23 14:04 Ur Specific [place] 1.025 (1.002-1.030) 02/27/23 14:04 Urine Protein TRACE mg/dL (NEGATIVE) 02/27/23 14:04 Urine Glucose (UA) NEGATIVE mg/dL (NEGATIVE) 02/27/23 14:04 Urine Ketones TRACE mg/dL (NEGATIVE) 02/27/23 14:04 Urine Occult Blood NEGATIVE (NEGATIVE) 02/27/23 14:04 Urine Nitrite POSITIVE (NEGATIVE) H 02/27/23 14:04 Urine Bilirubin MODERATE (NEGATIVE) H 02/27/23 14:04 Urine Urobilinogen >=8.0 E.U./dL (NORMAL) H 02/27/23 14:04 Ur Leukocyte Esterase TRACE (NEGATIVE) H 02/27/23 14:04 Urine RBC 0-5 /HPF (0-5) 02/27/23 14:04 Urine WBC 0-3 /HPF (0-3) 02/27/23 14:04 Ur Squamous Epith Cells RARE Squamous (<= Few) 02/27/23 14:04 Urine Bacteria Few /HPF (None Seen) 02/27/23 14:04 Ur Microscopic Review INDICATED 02/27/23 14:04 Urine Culture Comments INDICATED 02/27/23 14:04 Nasal Screen MRSA (PCR) NEGATIVE (NEGATIVE) 02/27/23 14:04 Ethyl Alcohol 82.3 mg/dL 02/26/23 19:24 Blood Type O NEGATIVE 02/26/23 19:46 Blood Type Recheck O NEGATIVE 02/26/23 19:24 Antibody Screen NEGATIVE 02/26/23 19:46 Crossmatch IS Only See Detail 02/26/23 19:46
[2023-03-05] MEDS ORDERED: chlordiazePOXIDE 5 MG CAPSULE PO SCH (09:00)
[2023-03-05] MEDS: PANTOPRAZOLE 40 MG TABLET PO SCH ×2 (09:01→20:51)
[2023-03-05] MEDS: SPIRONOLACTONE 25 MG TABLET PO SCH (09:01)
[2023-03-05] MEDS: PRENATAL VITAMIN TABLET PO SCH (09:01)
[2023-03-05] MEDS: MAGNESIUM OXIDE 400 MG TABLET PO SCH (09:02)
[2023-03-05] MEDS: FLUCONAZOLE 100 MG TABLET PO SCH (09:03)
[2023-03-05] MEDS: nadoloL 20 MG TABLET PO SCH (09:03)
[2023-03-05] MEDS: LACTULOSE 10 GM /15 ML UDC PO SCH ×3 (09:03→16:21)
[2023-03-05] MEDS: THIAMINE 100 MG TABLET PO SCH (09:03)
[2023-03-05] MEDS: FUROSEMIDE 40 MG TABLET PO SCH (09:09)
[2023-03-05 09:40] LABS: HGB - HEMOGLOBIN 8.4 g/dL (14.0-18.0)
[2023-03-05 09:47] LABS: INR 2.4 (0.8-1.2)
--- NOTE | 2023-03-05 13:21 | MRI Report ---
PROCEDURE: BRAIN WO INDICATIONS: worse balance, L sided lean, poss facial asymmetry TECHNIQUE: Noncontrast axial T1 spin echo, axial T2 fast spin echo, sagittal and axial FLAIR, coronal T2 fast sp in echo, axial gradient echo, axial diffusion and ADC through the brain. COMPARISON: None. FINDINGS: Image quality: Diagnostic. Patient motion artifact on multiple sequences.. CSF Spaces: Basal cisterns are patent. No extra-axial fluid collections. Ventricles are normal in size and shape. Age-related volume loss, mild small vessel ischemic change. Brain: No intracranial masses or hemorrhage. [place]/white matter interface is normal. Brainstem appe ars normal. Diffusion-weighted images demonstrate no acute ischemic insult. No chronic ischemic ins ults. Normal intravascular flow voids are present. Skull and face: Calvarium has normal marrow signal. Orbits appear normal. Sinuses: Sinuses and mastoids are clear. IMPRESSION: 1. Age-related volume loss, mild small vessel ischemic change. 2. No evidence acute intracranial process. Reviewed by: Stephen Wood MD on 03/05/2023 1:20 PM PDT Approved by: Stephen Wood MD on 03/05/2023 1:20 PM PDT Station ID: [id number]
[2023-03-06] MEDS: SODIUM CHLORIDE FLUSH 0.9% 10 ML SYRINGE IVP SCH ×3 (01:45→17:58)
[2023-03-06 05:22] LABS: ALBUMIN 1.9 g/dL (3.2-5.5); BILIRUBIN,DIRECT 2.4 mg/dL (0.1-0.5); BILIRUBIN,TOTAL 6.3 mg/dL (0.2-1.0); CALCIUM 7.9 mg/dL (8.5-10.3); CREATININE 0.7 mg/dL (0.6-1.2); POTASSIUM 3.6 mmol/L (3.5-5.0); TOTAL PROTEIN 6.6 g/dL (6.7-8.2)
[2023-03-06] MEDS: SUCRALFATE 1 GM/10 ML UDC PO SCH ×4 (06:23→21:16)
[2023-03-06] MEDS: PRENATAL VITAMIN TABLET PO SCH (08:59)
[2023-03-06] MEDS: PANTOPRAZOLE 40 MG TABLET PO SCH ×2 (08:59→21:16)
[2023-03-06] MEDS: SPIRONOLACTONE 25 MG TABLET PO SCH (08:59)
[2023-03-06] MEDS: THIAMINE 100 MG TABLET PO SCH (08:59)
[2023-03-06] MEDS: FLUCONAZOLE 100 MG TABLET PO SCH (08:59)
[2023-03-06] MEDS: FUROSEMIDE 40 MG TABLET PO SCH (09:00)
[2023-03-06] MEDS: MAGNESIUM OXIDE 400 MG TABLET PO SCH (09:00)
[2023-03-06] MEDS: LACTULOSE 10 GM /15 ML UDC PO SCH ×3 (09:00→17:58)
[2023-03-06] MEDS: nadoloL 20 MG TABLET PO SCH (09:03)
--- NOTE | 2023-03-06 09:11 | PROVIDER PROGRESS NOTE ---
Assessment/Plan - Problem List (1) Alcohol abuse with withdrawal Assessment/Plan: All labs were reviewed. His ammonia level was 78>> 95>> 85>> 97 today. There had been no BMs for 2.5 days. Librium has been tapered down to off and has been stopped yesterday. I suspect he is lethargic and hypersomnolent from this ammonia elevation and from receiving benzos that have not yet cleared his cyst Plan: We will increase his lactulose 10 3 times daily with meals to 20 3 times daily with Follow ammonia level daily Continue daily Thiamine Continue working with PT and OT. Plan will be to go to SNF for PT and OT rehab (2) Weakness Conclusion/Plan: PT and OT approached me each and described that he is more lethargic today, is favoring his left side, may have a facial droop, is more confused and cannot follow directions. A STAT brain MRI was ordered to evaluate for acute findings. This was negative. I also got a message today that his niece Aspen Gould spoke to the patient's nurse and reported that over several years he has had increasing paranoia, auditory hallucinations, has "very high highs and very low lows". She said he is easily agitated and does not follow cues or answer questions. A psychiatry evaluation was questioned if it would be needed. I suspect he is lethargic and hypersomnolent from this ammonia elevation and from receiving benzos that have not yet cleared his cyst Plan: Continue to work with PT and OT when he is less somnolent Once his sensorium is more cleared, I will have our OPERATIONS SUPPORT REPRESENTATIVE evaluate him for depression and he will likely need a cognitive evaluation done by OT as well. 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 His liver appeared cirrhotic. He has an elevated INR , low platelets, elevated ammonia level and elevated LFTs and bili, consistent with liver disease. Plan: Continue daily Thiamine 100 mg p.o. We will continue with po Lactulose and titrate to 3 loose BMs/day max. Follow ammonia level daily Continue with the decreased p.o. Lasix and p.o. Spironolactone Continue working with PT and OT. SNF is recommended by therapists and he agreed, when he was more alert several days ago. SW to choice him (4) Alcoholic hepatitis with ascites Conclusion/Plan: His Maddrey discriminate function is 87.3 suggesting poor prognosis. Plan: Continue with the decreased p.o. Lasix and p.o. Spironolactone (5) Elevated INR Conclusion/Plan: Secondary to liver disease. All labs were reviewed. He got FFP and vitamin K and INR went from 2.7 at admission >> 2.6>> 2.0>> 2.4>> 2.7>> 2.4 Plan: Will monitor INR intermittently for possible further need for FFP or vit K. (6) Gastrointestinal hemorrhage with hematemesis Impression: Pt presented with hematemesis. His abdomen CT showed large distal esophageal varices. He was seen in consultation by general surgeon who did EGD, which showed esophageal varices from cirrhosis, but they were not bleeding. He was found to have friable esophagitis and gastritis, due either to batsheva or gastro-esophageal reflux along with his coagulopathy, and this combination caused his presenting symptoms. He was started on meds for gastritis and also antifungal and Sucralfate His diet has been advanced slowly and he is tolerating it, no nausea, no reble eds Plan: Follow hemoglobin daily, transfuse if under 7 or if symptomatic under 8 Continue with the sucralfate and Protonix meds He has been on minced and moist diet for many days. I will advance this to a regular diet to assess if he can tolerate it before he is discharged. (7) Anemia Conclusion/Plan: Patient was transfused 4 units PRBC. All labs were reviewed. Hgb went from 3.9 at admission >> 7.6>> 8.3>> 7.5>> 8 and has been stable at 8 for 3 days Source of his anemia is GI bleed from his severe gastritis and esophagitis, on top of having low plts and elevated INR. Plan: Follow hemoglobin daily, transfuse if under 7 or if symptomatic and Hgb under 8 (8) Esophageal candidiasis Impression: During the EGD the general surgeon felt that he had a white coating on the esophagus consistent with candidal esophagitis. Fluconazole oral was started Plan: We will give a 7-day dose of fluconazole. I discussed this with our pharmacist today. - Current Meds Current Meds: Current Medications Generic Name Dose Route Start Last Admin Trade Name Freq PRN Reason Stop Dose Admin Fluconazole 400 mg 02/28/23 09:00 03/06/23 08:59 Fluconazole 100 Mg Tablet PO 400 mg DAILY ANDREW Administration Furosemide 20 mg 03/05/23 09:00 03/06/23 09:00 Furosemide 40 Mg Tablet PO 20 mg DAILY ANDREW Administration Lorazepam 2 - 20 mg 02/27/23 13:47 03/02/23 00:46 Lorazepam 2 Mg/Ml Vial IVP 2 mg Q15M PRN Administration RASS > 0 Protocol Magnesium Oxide 400 mg 03/04/23 12:00 03/06/23 09:00 Magnesium Oxide 400 Mg Tablet PO 400 mg DAILYWM ANDREW Administration Nadolol 10 mg 03/03/23 09:00 03/06/23 09:03 Nadolol 20 Mg Tablet PO 10 mg DAILY ANDREW Administration Pantoprazole Sodium 40 mg 02/28/23 11:00 03/06/23 08:59 Pantoprazole 40 Mg Tablet PO 40 mg BID ANDREW Administration Multivit/Folic Acid/Iron 1 tab 03/02/23 08:00 03/06/23 08:59 Vitamin Tablet PO 1 tab DAILYWM ANDREW Administration Sodium Chloride 10 ml 02/27/23 17:00 03/06/23 09:00 Sodium Chloride Flush 0.9% 10 Ml Syringe IVP 10 ml 0100,0900,1700 ANDREW Administration Sodium Chloride 10 ml 02/27/23 13:40 02/28/23 19:40 Sodium Chloride Flush 0.9% 10 Ml Syringe IVP 10 ml PRN PRN Administration NEEDED PER PROVIDER ORDERS Spironolactone 25 mg 02/28/23 15:44 03/06/23 08:59 Spironolactone 25 Mg Tablet PO 25 mg DAILY ANDREW Administration Sucralfate 1 gm 02/28/23 11:00 03/06/23 06:23 Sucralfate 1 Gm/10 Ml Udc PO 1 gm 0700,1100,1600,2200 ANDREW Administration Thiamine HCl 100 mg 03/01/23 09:00 03/06/23 08:59 Thiamine 100 Mg Tablet PO 100 mg DAILY ANDREW Administration - Lab Result Fish Bone Diagrams: 03/05/23 09:20 03/06/23 04:57 - Additional Planning My Orders: My Active Orders 03/05/23 09:00 Furosemide [Lasix] 20 mg PO DAILY 03/05/23 10:08 Vital Signs - Orthostatic [RC] QSHIFT 03/05/23 Lunch DIET [Regular Diet] [DIET] 03/06/23 12:00 Lactulose [Enulose] 20 gm PO TIDWM 03/07/23 05:00 AMMONIA [CHEM] DAILYLAB BMP - BASIC METABOLIC PANEL [CHEM] DAILYLAB 03/08/23 05:00 AMMONIA [CHEM] DAILYLAB BMP - BASIC METABOLIC PANEL [CHEM] DAILYLAB 03/09/23 05:00 AMMONIA [CHEM] DAILYLAB Subjective - Subjective Patient Reports: Other (Asleep) Objective Vital Signs: Vital Signs - 24 hr 03/05/23 03/05/23 03/06/23 18:00 23:56 08:04 Temperature 36.3 C L 36.9 C 36.5 C Heart Rate [ 82 81 77 Brachial] Respiratory 18 18 24 Rate Blood Pressure 102/59 L [Left Brachial] Blood Pressure 100/50 L 108/64 [Right Brachial artery] O2 Saturation 95 95 94 Oxygen O2 Source Room air I&O (Last 24 Hrs): Intake and Output Totals x24h 03/04/23 03/05/23 03/06/23 23:59 23:59 23:59 Intake Total 680 1160 200 Output Total 100 Balance 580 1160 200 General: Other (Lethargic, asleep in bed) HEENT: Mucous membr. moist/pink Neck: Supple Neuro: Other (Lethargic) Cardiovascular: No murmurs Respiratory: No respiratory distress Abdomen: Soft Extremities: No clubbing, No edema - Results Results: Laboratory Results WBC 10.4 x10^3/uL (4.8-10.8) 03/03/23 04:54 RBC 2.83 10^6/uL (4.70-6.10) L 03/03/23 04:54 Hgb 8.4 g/dL (14.0-18.0) L 03/05/23 09:20 Hct 26.6 % (42.0-52.0) L 03/03/23 04:54 MCV 94.0 fL (80.0-94.0) 03/03/23 04:54 MCH 27.9 pg (27.0-31.0) 03/03/23 04:54 MCHC 29.7 g/dL (32.0-36.0) L 03/03/23 04:54 RDW 24.0 % (12.0-15.0) H 03/03/23 04:54 Plt Count 97 10^3/uL (130-450) L 03/05/23 09:20 MPV TNP 03/03/23 04:54 Neut # (Auto) Not Reportable 03/03/23 04:54 Lymph # (Auto) Not Reportable 03/03/23 04:54 [place] # (Auto) Not Reportable 03/03/23 04:54 Eos # (Auto) Not Reportable 03/03/23 04:54 Baso # (Auto) Not Reportable 03/03/23 04:54 Absolute Nucleated RBC Not Reportable 03/03/23 04:54 Total Counted 100 03/03/23 04:54 Band Neuts % (Manual) 1 % (0-10) 03/03/23 04:54 Abnorm Lymph % (Manual) 0 % 03/03/23 04:54 Nucleated RBC % Not Reportable 03/03/23 04:54 Neutrophils # (Manual) 6.9 10^3/uL (1.5-6.6) H 03/03/23 04:54 Lymphocytes # (Manual) 1.9 10^3/uL (1.5-3.5) 03/03/23 04:54 Monocytes # (Manual) 1.1 10^3/uL (0.0-1.0) H 03/03/23 04:54 Eosinophils # (Manual) 0.3 10^3/uL (0-0.7) 03/03/23 04:54 Basophils # (Manual) 0.2 10^3/uL (0-0.1) H 03/03/23 04:54 Differential Comment MANUAL DIFFERENTIAL 03/03/23 04:54 Manual Slide Review Indicated 03/02/23 01:42 WBC Morphology NORMAL APPEARANCE (NORMAL) 03/03/23 04:54 Platelet Estimate DECREASED (<130,000) (NORMAL) 03/03/23 04:54 Platelet Morphology NORMAL APPEARANCE (NORMAL) 03/03/23 04:54 RBC Morph Micro Appear 3+ ANISOCYTOSIS (NORMAL) 2+ HYPOCHROMASIA (NORMAL) 1+ ACANTHOCYTES (NORMAL) 1+ SCHISTOCYTES (NORMAL) 03/03/23 04:54 RBC Morph Micro Appear 3+ ANISOCYTOSIS (NORMAL) 2+ HYPOCHROMASIA (NORMAL) 1+ ACANTHOCYTES (NORMAL) 1+ SCHISTOCYTES (NORMAL) 03/03/23 04:54 RBC Morph Micro Appear 3+ ANISOCYTOSIS (NORMAL) 2+ HYPOCHROMASIA (NORMAL) 1+ ACANTHOCYTES (NORMAL) 1+ SCHISTOCYTES (NORMAL) 03/03/23 04:54 RBC Morph Micro Appear 3+ ANISOCYTOSIS (NORMAL) 2+ HYPOCHROMASIA (NORMAL) 1+ ACANTHOCYTES (NORMAL) 1+ SCHISTOCYTES (NORMAL) 03/03/23 04:54 PT 26.0 secs (9.9-12.6) H 03/05/23 09:20 INR 2.4 (0.8-1.2) H 03/05/23 09:20 APTT 31.8 secs (24.9-33.3) 03/01/23 00:13 VBG pH 7.513 (7.31-7.41) H 03/02/23 01:42 Ionized Calcium 1.08 mmol/L (1.15-1.33) L 03/02/23 01:42 Sodium 138 mmol/L (135-145) 03/06/23 04:57 Potassium 3.6 mmol/L (3.5-5.0) 03/06/23 04:57 Chloride 108 mmol/L (101-111) 03/06/23 04:57 Carbon Dioxide 25 mmol/L (21-32) 03/06/23 04:57 Anion Gap 5.0 (6-13) L 03/06/23 04:57 BUN 8 mg/dL (6-20) 03/06/23 04:57 Creatinine 0.7 mg/dL (0.6-1.2) 03/06/23 04:57 Estimated GFR (MDRD) 115 (>89) 03/06/23 04:57 Glucose 107 mg/dL (70-100) H 03/06/23 04:57 POC Whole Bld Glucose 113 mg/dL (70 - 100) H 02/27/23 23:26 Calcium 7.9 mg/dL (8.5-10.3) L 03/06/23 04:57 Phosphorus 2.5 mg/dL (2.5-4.6) 03/02/23 01:42 Magnesium 1.8 mg/dL (1.7-2.8) 03/04/23 04:57 Total Bilirubin 6.3 mg/dL (0.2-1.0) H 03/06/23 04:57 Direct Bilirubin 2.4 mg/dL (0.1-0.5) H 03/06/23 04:57 AST 42 IU/L (10-42) 03/06/23 04:57 ALT 16 IU/L (10-60) 03/06/23 04:57 Alkaline Phosphatase 80 IU/L (42-121) 03/06/23 04:57 Ammonia 97.0 umol/L (7-35) H* 03/06/23 04:57 Troponin I High Sens 13.5 ng/L (2.3-19.7) 02/27/23 13:43 B-Natriuretic Peptide 695 pg/mL (5-100) H 03/02/23 01:42 Total Protein 6.6 g/dL (6.7-8.2) L 03/06/23 04:57 Albumin 1.9 g/dL (3.2-5.5) L 03/06/23 04:57 Globulin 4.7 g/dL (2.1-4.2) H 03/06/23 04:57 Albumin/Globulin Ratio 0.4 (1.0-2.2) L 03/03/23 04:54 Lipase 76 U/L (22-51) H 02/26/23 19:24 Urine Color BROWN 02/27/23 14:04 Urine Clarity CLEAR (CLEAR) 02/27/23 14:04 Urine pH 5.5 PH (5.0-7.5) 02/27/23 14:04 Ur Specific [place] 1.025 (1.002-1.030) 02/27/23 14:04 Urine Protein TRACE mg/dL (NEGATIVE) 02/27/23 14:04 Urine Glucose (UA) NEGATIVE mg/dL (NEGATIVE) 02/27/23 14:04 Urine Ketones TRACE mg/dL (NEGATIVE) 02/27/23 14:04 Urine Occult Blood NEGATIVE (NEGATIVE) 02/27/23 14:04 Urine Nitrite POSITIVE (NEGATIVE) H 02/27/23 14:04 Urine Bilirubin MODERATE (NEGATIVE) H 02/27/23 14:04 Urine Urobilinogen >=8.0 E.U./dL (NORMAL) H 02/27/23 14:04 Ur Leukocyte Esterase TRACE (NEGATIVE) H 02/27/23 14:04 Urine RBC 0-5 /HPF (0-5) 02/27/23 14:04 Urine WBC 0-3 /HPF (0-3) 02/27/23 14:04 Ur Squamous Epith Cells RARE Squamous (<= Few) 02/27/23 14:04 Urine Bacteria Few /HPF (None Seen) 02/27/23 14:04 Ur Microscopic Review INDICATED 02/27/23 14:04 Urine Culture Comments INDICATED 02/27/23 14:04 Nasal Screen MRSA (PCR) NEGATIVE (NEGATIVE) 02/27/23 14:04 Ethyl Alcohol 82.3 mg/dL 02/26/23 19:24 Blood Type O NEGATIVE 02/26/23 19:46 Blood Type Recheck O NEGATIVE 02/26/23 19:24 Antibody Screen NEGATIVE 02/26/23 19:46 Crossmatch IS Only See Detail 02/26/23 19:46
[2023-03-07] MEDS: SODIUM CHLORIDE FLUSH 0.9% 10 ML SYRINGE IVP SCH ×3 (02:01→16:32)
[2023-03-07 05:11] LABS: CALCIUM 8.1 mg/dL (8.5-10.3); CREATININE 0.8 mg/dL (0.6-1.2); POTASSIUM 3.9 mmol/L (3.5-5.0)
[2023-03-07] MEDS: SUCRALFATE 1 GM/10 ML UDC PO SCH (06:15)
[2023-03-07] MEDS: LACTULOSE 10 GM /15 ML UDC PO SCH ×3 (08:44→16:31)
[2023-03-07] MEDS: nadoloL 20 MG TABLET PO SCH (08:44)
[2023-03-07] MEDS: SPIRONOLACTONE 25 MG TABLET PO SCH (08:45)
[2023-03-07] MEDS: MAGNESIUM OXIDE 400 MG TABLET PO SCH (08:45)
[2023-03-07] MEDS: PRENATAL VITAMIN TABLET PO SCH (08:45)
[2023-03-07] MEDS: THIAMINE 100 MG TABLET PO SCH (08:46)
[2023-03-07] MEDS: PANTOPRAZOLE 40 MG TABLET PO SCH ×2 (08:46→20:26)
[2023-03-07] MEDS: FUROSEMIDE 40 MG TABLET PO SCH (08:46)
--- NOTE | 2023-03-07 09:25 | PROVIDER PROGRESS NOTE ---
Assessment/Plan - Problem List (1) Alcohol abuse with withdrawal Assessment/Plan: All labs were reviewed. His ammonia level was 78>> 95>> 85>> 97 yesterday and there had been no BMs for 2.5 days. I increased his lactulose 10 TID with meals to 20 TID with meals yesterday and today the Ammonia is 73 and he is awake. Librium has been tapered down to off and has been stopped on 03/05. I suspect he is lethargic and hypersomnolent from this ammonia elevation and from receiving benzos that have not yet cleared his system Plan: Follow ammonia level daily Continue daily Thiamine Continue working with PT and OT. Plan will be to go to SNF for PT and OT rehab. I asked him what his plan is for remaining off alcohol and he says just to quit it that he has done it many times before, to which I asked then why he went back on alcohol, and he says it was from stress. We discussed depression and anxiety. I will start him on an SSRI (2) Weakness Conclusion/Plan: He has been more lethargic for several days. A STAT brain MRI was donme on 03/05 to evaluate for acute findings. This was negative. I also got a message that his niece Aspen Gould spoke to the patient's nurse and reported that over several years he has had increasing paranoia, auditory hallucinations, has "very high highs and very low lows". She said he is easily agitated and does not follow cues or answer questions. A psychiatry evaluation was questioned if it would be needed. I suspect he is lethargic and hypersomnolent from the ammonia elevation and from receiving benzos that have not yet cleared his system Today being more awake, he admitted that he is depressed "because a friend did not visit him today" Plan: Continue to work with PT and OT when he is less somnolent Once his sensorium is more cleared, he may need a cognitive evaluation done by OT as well. 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 His liver appeared cirrhotic. He has an elevated INR , low platelets, elevated ammonia level and elevated LFTs and bili, consistent with liver disease. Plan: Continue daily Thiamine 100 mg p.o. We will continue with po Lactulose and titrate to 3 loose BMs/day max. Follow ammonia level daily Continue p.o. Spironolactone Continue working with PT and OT. SNF is recommended by therapists and he agreed, when he was more alert several days ago. SW to choice him (4) Alcoholic hepatitis with ascites Conclusion/Plan: His Maddrey discriminate function is 87.3 suggesting poor prognosis. Plan: Continue with p.o. Spironolactone. I will stop the Lasix (5) Elevated INR Conclusion/Plan: Secondary to liver disease. All labs were reviewed. He got FFP and vitamin K and INR went from 2.7 at admission >> 2.6>> 2.0>> 2.4>> 2.7>> 2.4 Plan: Will monitor INR intermittently for possible further need for FFP or vit K. (6) Gastrointestinal hemorrhage with hematemesis Impression: Pt presented with hematemesis. His abdomen CT showed large distal esophageal varices. He was seen in consultation by general surgeon who did EGD, which showed esophageal varices from cirrhosis, but they were not bleeding. He was found to have friable esophagitis and gastritis, due either to batsheva or gastro-esophageal reflux along with his coagulopathy, and this combination caused his presenting symptoms. He was started on meds for gastritis and also antifungal and Sucralfate His diet has been advanced slowly and he is tolerating it, no nausea, no rebleeds I stopped the Sucralfate Plan: Follow CBC w/out diff intermittently Continue with Protonix BID. (7) Anemia Conclusion/Plan: Patient was transfused 4 units PRBC. All labs were reviewed. Hgb went from 3.9 at admission >> 7.6>> 8.3>> 7.5>> 8 and has been stable at 8 for 3 days Source of his anemia is GI bleed from his severe gastritis and esophagitis, on top of having low plts and elevated INR. Plan: Follow CBC w/out diff intermittently, and transfuse if Hgb under 7 or if symptomatic and Hgb under 8, and plt transfuse if <10 or if bleeding and plt <50. (8) Esophageal candidiasis Impression: During the EGD the general surgeon felt that he had a white coating on the esophagus consistent with candidal esophagitis. Fluconazole oral was started He completed a 7-day dose of fluconazole. - Current Meds Current Meds: Current Medications Generic Name Dose Route Start Last Admin Trade Name Miguelq PRN Reason Stop Dose Admin Lactulose 20 gm 03/06/23 12:00 03/07/23 08:44 Lactulose 10 Gm /15 Ml Udc PO 20 gm TIDWM ANDREW Administration Lorazepam 2 - 20 mg 02/27/23 13:47 03/02/23 00:46 Lorazepam 2 Mg/Ml Vial IVP 2 mg Q15M PRN Administration RASS > 0 Protocol Magnesium Oxide 400 mg 03/04/23 12:00 03/07/23 08:45 Magnesium Oxide 400 Mg Tablet PO 400 mg DAILYWM ANDREW Administration Nadolol 10 mg 03/03/23 09:00 03/07/23 08:44 Nadolol 20 Mg Tablet PO 10 mg DAILY ANDREW Administration Pantoprazole Sodium 40 mg 02/28/23 11:00 03/07/23 08:46 Pantoprazole 40 Mg Tablet PO 40 mg BID ANDREW Administration Multivit/Folic Acid/Iron 1 tab 03/02/23 08:00 03/07/23 08:45 Vitamin Tablet PO 1 tab DAILYWM ANDREW Administration Sodium Chloride 10 ml 02/27/23 17:00 03/07/23 08:44 Sodium Chloride Flush 0.9% 10 Ml Syringe IVP 10 ml 0100,0900,1700 ANDREW Administration Sodium Chloride 10 ml 02/27/23 13:40 02/28/23 19:40 Sodium Chloride Flush 0.9% 10 Ml Syringe IVP 10 ml PRN PRN Administration NEEDED PER PROVIDER ORDERS Spironolactone 25 mg 02/28/23 15:44 03/07/23 08:45 Spironolactone 25 Mg Tablet PO 25 mg DAILY ANDREW Administration Thiamine HCl 100 mg 03/01/23 09:00 03/07/23 08:46 Thiamine 100 Mg Tablet PO 100 mg DAILY ANDREW Administration - Lab Result Fish Bone Diagrams: 03/05/23 09:20 03/07/23 04:52 - Additional Planning My Orders: My Active Orders 03/06/23 12:00 Lactulose [Enulose] 20 gm PO TIDWM 03/07/23 05:00 MAGNESIUM [CHEM] Routine 03/08/23 05:00 AMMONIA [CHEM] DAILYLAB BMP - BASIC METABOLIC PANEL [CHEM] DAILYLAB CBC W/O DIFF (HEMOGRAM) [HEME] DAILYLAB LIVER PANEL [CHEM] DAILYLAB PT WITH INR [COAG] DAILYLAB 03/09/23 05:00 AMMONIA [CHEM] DAILYLAB CBC W/O DIFF (HEMOGRAM) [HEME] DAILYLAB LIVER PANEL [CHEM] DAILYLAB Subjective - Subjective Patient Reports: Other (He is awake and questioning what meds he is on, why so many morning labs, what happened to him the last few days, why he is so weak, and he admitted that he is depressed "because a friend did not visit him today") Objective Vital Signs: Vital Signs - 24 hr 03/06/23 03/07/23 03/07/23 18:23 00:17 08:20 Temperature 36.6 C 36.9 C 36.3 C L Heart Rate [ 72 80 83 Brachial] Respiratory 22 18 24 Rate Blood Pressure 101/62 122/69 115/79 [Right Brachial artery] O2 Saturation 96 95 95 Oxygen O2 Source Room air I&O (Last 24 Hrs): Intake and Output Totals x24h 03/05/23 03/06/23 03/07/23 23:59 23:59 23:59 Intake Total 1160 560 120 Balance 1160 560 120 General: Alert, Oriented x3, Other (Appers weak) HEENT: Mucous membr. moist/pink, Other (icteric sclerae) Neuro: Alert, Non Focal, Other (Peers weak, is bradykinetic, has no nystagmus or tremor) Cardiovascular: Regular rate Respiratory: No respiratory distress Abdomen: Soft, No tenderness, Other (Mildly distended, liver edge is palpable, probably no fluid wave) Extremities: No clubbing, No edema, No tenderness/swelling Skin: No rashes (Icteric) - Results Results: Laboratory Results WBC 10.4 x10^3/uL (4.8-10.8) 03/03/23 04:54 RBC 2.83 10^6/uL (4.70-6.10) L 03/03/23 04:54 Hgb 8.4 g/dL (14.0-18.0) L 03/05/23 09:20 Hct 26.6 % (42.0-52.0) L 03/03/23 04:54 MCV 94.0 fL (80.0-94.0) 03/03/23 04:54 MCH 27.9 pg (27.0-31.0) 03/03/23 04:54 MCHC 29.7 g/dL (32.0-36.0) L 03/03/23 04:54 RDW 24.0 % (12.0-15.0) H 03/03/23 04:54 Plt Count 97 10^3/uL (130-450) L 03/05/23 09:20 MPV TNP 03/03/23 04:54 Neut # (Auto) Not Reportable 03/03/23 04:54 Lymph # (Auto) Not Reportable 03/03/23 04:54 [place] # (Auto) Not Reportable 03/03/23 04:54 Eos # (Auto) Not Reportable 03/03/23 04:54 Baso # (Auto) Not Reportable 03/03/23 04:54 Absolute Nucleated RBC Not Reportable 03/03/23 04:54 Total Counted 100 03/03/23 04:54 Band Neuts % (Manual) 1 % (0-10) 03/03/23 04:54 Abnorm Lymph % (Manual) 0 % 03/03/23 04:54 Nucleated RBC % Not Reportable 03/03/23 04:54 Neutrophils # (Manual) 6.9 10^3/uL (1.5-6.6) H 03/03/23 04:54 Lymphocytes # (Manual) 1.9 10^3/uL (1.5-3.5) 03/03/23 04:54 Monocytes # (Manual) 1.1 10^3/uL (0.0-1.0) H 03/03/23 04:54 Eosinophils # (Manual) 0.3 10^3/uL (0-0.7) 03/03/23 04:54 Basophils # (Manual) 0.2 10^3/uL (0-0.1) H 03/03/23 04:54 Differential Comment MANUAL DIFFERENTIAL 03/03/23 04:54 Manual Slide Review Indicated 03/02/23 01:42 WBC Morphology NORMAL APPEARANCE (NORMAL) 03/03/23 04:54 Platelet Estimate DECREASED (<130,000) (NORMAL) 03/03/23 04:54 Platelet Morphology NORMAL APPEARANCE (NORMAL) 03/03/23 04:54 RBC Morph Micro Appear 3+ ANISOCYTOSIS (NORMAL) 2+ HYPOCHROMASIA (NORMAL) 1+ ACANTHOCYTES (NORMAL) 1+ SCHISTOCYTES (NORMAL) 03/03/23 04:54 RBC Morph Micro Appear 3+ ANISOCYTOSIS (NORMAL) 2+ HYPOCHROMASIA (NORMAL) 1+ ACANTHOCYTES (NORMAL) 1+ SCHISTOCYTES (NORMAL) 03/03/23 04:54 RBC Morph Micro Appear 3+ ANISOCYTOSIS (NORMAL) 2+ HYPOCHROMASIA (NORMAL) 1+ ACANTHOCYTES (NORMAL) 1+ SCHISTOCYTES (NORMAL) 03/03/23 04:54 RBC Morph Micro Appear 3+ ANISOCYTOSIS (NORMAL) 2+ HYPOCHROMASIA (NORMAL) 1+ ACANTHOCYTES (NORMAL) 1+ SCHISTOCYTES (NORMAL) 03/03/23 04:54 PT 26.0 secs (9.9-12.6) H 03/05/23 09:20 INR 2.4 (0.8-1.2) H 03/05/23 09:20 APTT 31.8 secs (24.9-33.3) 03/01/23 00:13 VBG pH 7.513 (7.31-7.41) H 03/02/23 01:42 Ionized Calcium 1.08 mmol/L (1.15-1.33) L 03/02/23 01:42 Sodium 139 mmol/L (135-145) 03/07/23 04:52 Potassium 3.9 mmol/L (3.5-5.0) 03/07/23 04:52 Chloride 108 mmol/L (101-111) 03/07/23 04:52 Carbon Dioxide 25 mmol/L (21-32) 03/07/23 04:52 Anion Gap 6.0 (6-13) 03/07/23 04:52 BUN 7 mg/dL (6-20) 03/07/23 04:52 Creatinine 0.8 mg/dL (0.6-1.2) 03/07/23 04:52 Estimated GFR (MDRD) 99 (>89) 03/07/23 04:52 Glucose 107 mg/dL (70-100) H 03/07/23 04:52 POC Whole Bld Glucose 113 mg/dL (70 - 100) H 02/27/23 23:26 Calcium 8.1 mg/dL (8.5-10.3) L 03/07/23 04:52 Phosphorus 2.5 mg/dL (2.5-4.6) 03/02/23 01:42 Magnesium 1.8 mg/dL (1.7-2.8) 03/04/23 04:57 Total Bilirubin 6.3 mg/dL (0.2-1.0) H 03/06/23 04:57 Direct Bilirubin 2.4 mg/dL (0.1-0.5) H 03/06/23 04:57 AST 42 IU/L (10-42) 03/06/23 04:57 ALT 16 IU/L (10-60) 03/06/23 04:57 Alkaline Phosphatase 80 IU/L (42-121) 03/06/23 04:57 Ammonia 73.2 umol/L (7-35) H 03/07/23 04:52 Troponin I High Sens 13.5 ng/L (2.3-19.7) 02/27/23 13:43 B-Natriuretic Peptide 695 pg/mL (5-100) H 03/02/23 01:42 Total Protein 6.6 g/dL (6.7-8.2) L 03/06/23 04:57 Albumin 1.9 g/dL (3.2-5.5) L 03/06/23 04:57 Globulin 4.7 g/dL (2.1-4.2) H 03/06/23 04:57 Albumin/Globulin Ratio 0.4 (1.0-2.2) L 03/03/23 04:54 Lipase 76 U/L (22-51) H 02/26/23 19:24 Urine Color BROWN 02/27/23 14:04 Urine Clarity CLEAR (CLEAR) 02/27/23 14:04 Urine pH 5.5 PH (5.0-7.5) 02/27/23 14:04 Ur Specific [place] 1.025 (1.002-1.030) 02/27/23 14:04 Urine Protein TRACE mg/dL (NEGATIVE) 02/27/23 14:04 Urine Glucose (UA) NEGATIVE mg/dL (NEGATIVE) 02/27/23 14:04 Urine Ketones TRACE mg/dL (NEGATIVE) 02/27/23 14:04 Urine Occult Blood NEGATIVE (NEGATIVE) 02/27/23 14:04 Urine Nitrite POSITIVE (NEGATIVE) H 02/27/23 14:04 Urine Bilirubin MODERATE (NEGATIVE) H 02/27/23 14:04 Urine Urobilinogen >=8.0 E.U./dL (NORMAL) H 02/27/23 14:04 Ur Leukocyte Esterase TRACE (NEGATIVE) H 02/27/23 14:04 Urine RBC 0-5 /HPF (0-5) 02/27/23 14:04 Urine WBC 0-3 /HPF (0-3) 02/27/23 14:04 Ur Squamous Epith Cells RARE Squamous (<= Few) 02/27/23 14:04 Urine Bacteria Few /HPF (None Seen) 02/27/23 14:04 Ur Microscopic Review INDICATED 02/27/23 14:04 Urine Culture Comments INDICATED 02/27/23 14:04 Nasal Screen MRSA (PCR) NEGATIVE (NEGATIVE) 02/27/23 14:04 Ethyl Alcohol 82.3 mg/dL 02/26/23 19:24 Blood Type O NEGATIVE 02/26/23 19:46 Blood Type Recheck O NEGATIVE 02/26/23 19:24 Antibody Screen NEGATIVE 02/26/23 19:46 Crossmatch IS Only See Detail 02/26/23 19:46
[2023-03-07] MEDS ORDERED: VENLAFAXINE 37.5 MG TABLET PO ONE (21:00)
[2023-03-08] MEDS: SODIUM CHLORIDE FLUSH 0.9% 10 ML SYRINGE IVP SCH ×3 (05:29→17:05)
[2023-03-08 05:49] LABS: HCT - HEMATOCRIT 25.7 % (42.0-52.0); HGB - HEMOGLOBIN 7.8 g/dL (14.0-18.0); MEAN CORPUSCULAR HEMOGLOBIN 28.7 pg (27.0-31.0); MEAN CORPUSCULAR HGB CONC 30.4 g/dL (32.0-36.0); MEAN CORPUSCULAR VOLUME 94.5 fL (80.0-94.0); MEAN PLATELET VOLUME 11.1 fL (7.4-11.4); RED BLOOD COUNT 2.72 10^6/uL (4.70-6.10); RED CELL DISTRIBUTION WIDTH 22.8 % (12.0-15.0); WHITE BLOOD COUNT 9.6 x10^3/uL (4.8-10.8)
[2023-03-08 05:52] LABS: INR 2.9 (0.8-1.2); PT - PROTHROMBIN TIME 29.8 secs (9.9-12.6)
[2023-03-08 06:01] LABS: ALBUMIN 1.9 g/dL (3.2-5.5); BILIRUBIN,DIRECT 2.6 mg/dL (0.1-0.5); BILIRUBIN,TOTAL 6.3 mg/dL (0.2-1.0); CREATININE 0.7 mg/dL (0.6-1.2); POTASSIUM 3.9 mmol/L (3.5-5.0); TOTAL PROTEIN 6.9 g/dL (6.7-8.2)
[2023-03-08] MEDS: THIAMINE 100 MG TABLET PO SCH (08:42)
[2023-03-08] MEDS: LACTULOSE 10 GM /15 ML UDC PO SCH ×3 (08:42→17:05)
[2023-03-08] MEDS: SPIRONOLACTONE 25 MG TABLET PO SCH (08:42)
[2023-03-08] MEDS: VENLAFAXINE ER 75 MG CAPSULE PO SCH (08:43)
[2023-03-08] MEDS: MAGNESIUM OXIDE 400 MG TABLET PO SCH (08:43)
[2023-03-08] MEDS: nadoloL 20 MG TABLET PO SCH (08:43)
[2023-03-08] MEDS: PRENATAL VITAMIN TABLET PO SCH (08:43)
[2023-03-08] MEDS: PANTOPRAZOLE 40 MG TABLET PO SCH ×2 (08:44→20:53)
[2023-03-08] MEDS ORDERED: BISACODYL 10 MG SUPP PR STA (12:12)
--- NOTE | 2023-03-08 14:40 | PROVIDER PROGRESS NOTE ---
Assessment/Plan - Problem List (1) Hyperammonemia Assessment/Plan: All labs were reviewed. His ammonia level was 78>> 95>> 85>> 97>> 73 yesterday and there had been no BMs for 1.5 days. I increased his lactulose 10 TID with meals to 20 TID with meals yesterday and today the Ammonia is 103 and he is again lethargic Librium has been tapered down to off and has been stopped on 03/05. I suspect he is lethargic and hypersomnolent from this ammonia elevation and from receiving benzos that have not yet cleared his system Plan: Follow ammonia level daily We will continue with po Lactulose and titrate to 3 loose BMs/day max. (2) Weakness Conclusion/Plan: He has been more lethargic for several days. A STAT brain MRI was done on 03/05 to evaluate for acute findings. This was negative. I also got a message that his niece Aspen Gould spoke to the patient's nurse and reported that over several years he has had increasing paranoia, auditory hallucinations, has "very high highs and very low lows". She said he is easily agitated and does not follow cues or answer questions. A psychiatry evaluation was questioned by that neice if it would be needed. I suspect he is lethargic and hypersomnolent from the ammonia elevation and also from receiving benzos that have not yet cleared his system On .4 being more awake, he admitted that he is depressed "because a friend did not visit him here" Plan: Continue to work with PT and OT when he is less somnolent. Plan will be to go to SNF for PT and OT rehab. SW to choice him Once his sensorium is more cleared, he may need a cognitive evaluation done by OT, and a [facility] eval for depression as well. 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 His liver appeared cirrhotic. He has an elevated INR , low platelets, elevated ammonia level and had elevated LFTs and bili is still up, consistent with liver disease. He had ascites on exam and got Lasix plus Spironoplactone, now is just on the Spironolactone. I asked him what his plan is for remaining off alcohol and he says just to quit it, and that he "has quit many times before", to which I then asked why he went back on alcohol, and he says it was from stress. On 03.07 being more awake, he admitted that he is depressed "because a friend did not visit him here". We discussed depression and anxiety. He had no SI. I started him on an SSRI on 03/07, explaining how they work, and he was interested. Plan: Continue daily Thiamine 100 mg p.o. Continue p.o. Spironolactone Continue working with PT and OT. SNF is recommended by therapists and he ag sean. (4) Constipation Despite being on lactulose 20 g 3 times daily, his last BM was 2 days ago and it was a hard formed stool Plan: RN has asked him and he prefers to get a bisacodyl suppository (will order that now), and if that does not work then a saline enema prn (5) Elevated INR Conclusion/Plan: Secondary to liver disease. All labs were reviewed. He got FFP and vitamin K and INR went from 2.7 at admission >> 2.6>> 2.0>> 2.4>> 2.7>> 2.4 Plan: Will monitor INR intermittently for possible further need for FFP or vit K. (6) Gastrointestinal hemorrhage with hematemesis Impression: Pt presented with hematemesis. His abdomen CT showed large distal esophageal varices. He was seen in consultation by general surgeon who did EGD, which showed esophageal varices from cirrhosis, but they were not bleeding. He was found to have friable esophagitis and gastritis, due either to batsheva or gastro-esophageal reflux along with his coagulopathy, and this combination caused his presenting symptoms. He was started on meds for gastritis and also antifungal and Sucralfate His diet has been advanced slowly and he is tolerating it, no nausea, no rebleeds I stopped the Sucralfate Plan: Follow CBC w/out diff intermittently Continue with Protonix BID. (7) Anemia Conclusion/Plan: Patient was transfused 4 units PRBC. All labs were reviewed. Hgb went from 3.9 at admission >> 7.6>> 8.3>> 7.5>> 8 and has been stable at 8 for 3 days Source of his anemia is GI bleed from his severe gastritis and esophagitis, on top of having low plts and elevated INR. Plan: Follow CBC w/out diff intermittently, and transfuse if Hgb under 7 or if symptomatic and Hgb under 8, and plt transfuse if <10 or if bleeding and plt <50. (8) Esophageal candidiasis Impression: During the EGD the general surgeon felt that he had a white coating on the esophagus consistent with candidal esophagitis. Fluconazole oral was started He completed a 7-day dose of fluconazole. (9) Alcohol abuse with withdrawal Withdrawal sx have RESOLVED CIWA protocol assessment was stopped Librium has been tapered down to off and was stopped on 03/05. I suspect he is lethargic and hypersomnolent from this ammonia elevation and fro m receiving benzos, that have not yet cleared his system - Current Meds Current Meds: Current Medications Generic Name Dose Route Start Last Admin Trade Name Freq PRN Reason Stop Dose Admin Lactulose 20 gm 03/06/23 12:00 03/08/23 13:19 Lactulose 10 Gm /15 Ml Udc PO 20 gm TIDWM ANDREW Administration Magnesium Oxide 400 mg 03/04/23 12:00 03/08/23 08:43 Magnesium Oxide 400 Mg Tablet PO 400 mg DAILYWM ANDREW Administration Nadolol 10 mg 03/03/23 09:00 03/08/23 08:43 Nadolol 20 Mg Tablet PO 10 mg DAILY ANDREW Administration Ondansetron HCl 4 mg 02/27/23 13:40 03/08/23 06:07 Ondansetron 4 Mg/2 Ml Vial IVP 4 mg Q6HR PRN Administration Nausea / Vomiting Pantoprazole Sodium 40 mg 02/28/23 11:00 03/08/23 08:44 Pantoprazole 40 Mg Tablet PO 40 mg BID ANDREW Administration Multivit/Folic Acid/Iron 1 tab 03/02/23 08:00 03/08/23 08:43 Vitamin Tablet PO 1 tab DAILYWM ANDREW Administration Sodium Chloride 10 ml 02/27/23 17:00 03/08/23 08:45 Sodium Chloride Flush 0.9% 10 Ml Syringe IVP 10 ml 0100,0900,1700 ANDREW Administration Sodium Chloride 10 ml 02/27/23 13:40 02/28/23 19:40 Sodium Chloride Flush 0.9% 10 Ml Syringe IVP 10 ml PRN PRN Administration NEEDED PER PROVIDER ORDERS Spironolactone 25 mg 02/28/23 15:44 03/08/23 08:42 Spironolactone 25 Mg Tablet PO 25 mg DAILY ANDREW Administration Thiamine HCl 100 mg 03/01/23 09:00 03/08/23 08:42 Thiamine 100 Mg Tablet PO 100 mg DAILY ANDREW Administration Venlafaxine HCl 75 mg 03/08/23 09:00 03/08/23 08:43 Venlafaxine Er 75 Mg Capsule PO 75 mg DAILY ANDREW Administration - Lab Result Fish Bone Diagrams: 03/08/23 05:37 03/08/23 05:37 - Additional Planning My Orders: My Active Orders 03/08/23 09:00 Venlafaxine ER [Effexor ER] 75 mg PO DAILY 03/09/23 05:00 AMMONIA [CHEM] DAILYLAB CBC W/O DIFF (HEMOGRAM) [HEME] DAILYLAB LIVER PANEL [CHEM] DAILYLAB Subjective - Subjective Patient Reports: Constipation (No BM for 2 days, last BM was hard and formed), Nausea (No vomiting), Other Nursing Reports: Other (He is mostly asleep, he needs to be urged to be OOB for meals) Objective Vital Signs: Vital Signs - 24 hr 03/07/23 03/07/23 03/08/23 15:59 23:45 08:59 Temperature 36.9 C 36.5 C 36.6 C Heart Rate [ 77 82 77 Brachial] Respiratory 24 22 20 Rate Blood Pressure 102/57 L 119/75 133/74 H [Right Brachial artery] O2 Saturation 95 96 95 Oxygen O2 Source Room air I&O (Last 24 Hrs): Intake and Output Totals x24h 03/06/23 03/07/23 03/08/23 23:59 23:59 23:59 Intake Total 560 830 200 Balance 560 830 200 General: Other (Lethargic) HEENT: EOMI, Mucous membr. moist/pink, Other (Icteric sclerae) Neck: Supple, Other Neuro: Alert, Other (Bradykinetic. No tremor, no nystagmus) Cardiovascular: No murmurs Respiratory: No respiratory distress Abdomen: Soft, No tenderness, Other (Minimal distention) Extremities: No clubbing, No edema - Results Results: Laboratory Results WBC 9.6 x10^3/uL (4.8-10.8) 03/08/23 05:37 RBC 2.72 10^6/uL (4.70-6.10) L 03/08/23 05:37 Hgb 7.8 g/dL (14.0-18.0) L 03/08/23 05:37 Hct 25.7 % (42.0-52.0) L 03/08/23 05:37 MCV 94.5 fL (80.0-94.0) H 03/08/23 05:37 MCH 28.7 pg (27.0-31.0) 03/08/23 05:37 MCHC 30.4 g/dL (32.0-36.0) L 03/08/23 05:37 RDW 22.8 % (12.0-15.0) H 03/08/23 05:37 Plt Count 116 10^3/uL (130-450) L 03/08/23 05:37 MPV 11.1 fL (7.4-11.4) 03/08/23 05:37 Neut # (Auto) Not Reportable 03/03/23 04:54 Lymph # (Auto) Not Reportable 03/03/23 04:54 [place] # (Auto) Not Reportable 03/03/23 04:54 Eos # (Auto) Not Reportable 03/03/23 04:54 Baso # (Auto) Not Reportable 03/03/23 04:54 Absolute Nucleated RBC Not Reportable 03/03/23 04:54 Total Counted 100 03/03/23 04:54 Band Neuts % (Manual) 1 % (0-10) 03/03/23 04:54 Abnorm Lymph % (Manual) 0 % 03/03/23 04:54 Nucleated RBC % Not Reportable 03/03/23 04:54 Neutrophils # (Manual) 6.9 10^3/uL (1.5-6.6) H 03/03/23 04:54 Lymphocytes # (Manual) 1.9 10^3/uL (1.5-3.5) 03/03/23 04:54 Monocytes # (Manual) 1.1 10^3/uL (0.0-1.0) H 03/03/23 04:54 Eosinophils # (Manual) 0.3 10^3/uL (0-0.7) 03/03/23 04:54 Basophils # (Manual) 0.2 10^3/uL (0-0.1) H 03/03/23 04:54 Differential Comment MANUAL DIFFERENTIAL 03/03/23 04:54 Manual Slide Review Indicated 03/02/23 01:42 WBC Morphology NORMAL APPEARANCE (NORMAL) 03/03/23 04:54 Platelet Estimate DECREASED (<130,000) (NORMAL) 03/03/23 04:54 Platelet Morphology NORMAL APPEARANCE (NORMAL) 03/03/23 04:54 RBC Morph Micro Appear 3+ ANISOCYTOSIS (NORMAL) 2+ HYPOCHROMASIA (NORMAL) 1+ ACANTHOCYTES (NORMAL) 1+ SCHISTOCYTES (NORMAL) 03/03/23 04:54 RBC Morph Micro Appear 3+ ANISOCYTOSIS (NORMAL) 2+ HYPOCHROMASIA (NORMAL) 1+ ACANTHOCYTES (NORMAL) 1+ SCHISTOCYTES (NORMAL) 03/03/23 04:54 RBC Morph Micro Appear 3+ ANISOCYTOSIS (NORMAL) 2+ HYPOCHROMASIA (NORMAL) 1+ ACANTHOCYTES (NORMAL) 1+ SCHISTOCYTES (NORMAL) 03/03/23 04:54 RBC Morph Micro Appear 3+ ANISOCYTOSIS (NORMAL) 2+ HYPOCHROMASIA (NORMAL) 1+ ACANTHOCYTES (NORMAL) 1+ SCHISTOCYTES (NORMAL) 03/03/23 04:54 PT 29.8 secs (9.9-12.6) H 03/08/23 05:37 INR 2.9 (0.8-1.2) H 03/08/23 05:37 APTT 31.8 secs (24.9-33.3) 03/01/23 00:13 VBG pH 7.513 (7.31-7.41) H 03/02/23 01:42 Ionized Calcium 1.08 mmol/L (1.15-1.33) L 03/02/23 01:42 Sodium 136 mmol/L (135-145) 03/08/23 05:37 Potassium 3.9 mmol/L (3.5-5.0) 03/08/23 05:37 Chloride 108 mmol/L (101-111) 03/08/23 05:37 Carbon Dioxide 23 mmol/L (21-32) 03/08/23 05:37 Anion Gap 5.0 (6-13) L 03/08/23 05:37 BUN 8 mg/dL (6-20) 03/08/23 05:37 Creatinine 0.7 mg/dL (0.6-1.2) 03/08/23 05:37 Estimated GFR (MDRD) 115 (>89) 03/08/23 05:37 Glucose 118 mg/dL (70-100) H 03/08/23 05:37 POC Whole Bld Glucose 113 mg/dL (70 - 100) H 02/27/23 23:26 Calcium 8.0 mg/dL (8.5-10.3) L 03/08/23 05:37 Phosphorus 2.5 mg/dL (2.5-4.6) 03/02/23 01:42 Magnesium 2.1 mg/dL (1.7-2.8) 03/07/23 04:52 Total Bilirubin 6.3 mg/dL (0.2-1.0) H 03/08/23 05:37 Direct Bilirubin 2.6 mg/dL (0.1-0.5) H 03/08/23 05:37 AST 47 IU/L (10-42) H 03/08/23 05:37 ALT 16 IU/L (10-60) 03/08/23 05:37 Alkaline Phosphatase 77 IU/L (42-121) 03/08/23 05:37 Ammonia 101.3 umol/L (7-35) H* 03/08/23 05:37 Troponin I High Sens 13.5 ng/L (2.3-19.7) 02/27/23 13:43 B-Natriuretic Peptide 695 pg/mL (5-100) H 03/02/23 01:42 Total Protein 6.9 g/dL (6.7-8.2) 03/08/23 05:37 Albumin 1.9 g/dL (3.2-5.5) L 03/08/23 05:37 Globulin 5.0 g/dL (2.1-4.2) H 03/08/23 05:37 Albumin/Globulin Ratio 0.4 (1.0-2.2) L 03/03/23 04:54 Lipase 76 U/L (22-51) H 02/26/23 19:24 Urine Color BROWN 02/27/23 14:04 Urine Clarity CLEAR (CLEAR) 02/27/23 14:04 Urine pH 5.5 PH (5.0-7.5) 02/27/23 14:04 Ur Specific [place] 1.025 (1.002-1.030) 02/27/23 14:04 Urine Protein TRACE mg/dL (NEGATIVE) 02/27/23 14:04 Urine Glucose (UA) NEGATIVE mg/dL (NEGATIVE) 02/27/23 14:04 Urine Ketones TRACE mg/dL (NEGATIVE) 02/27/23 14:04 Urine Occult Blood NEGATIVE (NEGATIVE) 02/27/23 14:04 Urine Nitrite POSITIVE (NEGATIVE) H 02/27/23 14:04 Urine Bilirubin MODERATE (NEGATIVE) H 02/27/23 14:04 Urine Urobilinogen >=8.0 E.U./dL (NORMAL) H 02/27/23 14:04 Ur Leukocyte Esterase TRACE (NEGATIVE) H 02/27/23 14:04 Urine RBC 0-5 /HPF (0-5) 02/27/23 14:04 Urine WBC 0-3 /HPF (0-3) 02/27/23 14:04 Ur Squamous Epith Cells RARE Squamous (<= Few) 02/27/23 14:04 Urine Bacteria Few /HPF (None Seen) 02/27/23 14:04 Ur Microscopic Review INDICATED 02/27/23 14:04 Urine Culture Comments INDICATED 02/27/23 14:04 Nasal Screen MRSA (PCR) NEGATIVE (NEGATIVE) 02/27/23 14:04 Ethyl Alcohol 82.3 mg/dL 02/26/23 19:24 Blood Type O NEGATIVE 02/26/23 19:46 Blood Type Recheck O NEGATIVE 02/26/23 19:24 Antibody Screen NEGATIVE 02/26/23 19:46 Crossmatch IS Only See Detail 02/26/23 19:46
[2023-03-08] MEDS ORDERED: SALINE ENEMA 133 ML BOTTLE RC PRN (18:16)
[2023-03-09] MEDS: SODIUM CHLORIDE FLUSH 0.9% 10 ML SYRINGE IVP SCH ×3 (03:49→21:34)
[2023-03-09 06:12] LABS: HCT - HEMATOCRIT 26.5 % (42.0-52.0); HGB - HEMOGLOBIN 7.9 g/dL (14.0-18.0); MEAN CORPUSCULAR HEMOGLOBIN 27.8 pg (27.0-31.0); MEAN CORPUSCULAR HGB CONC 29.8 g/dL (32.0-36.0); MEAN CORPUSCULAR VOLUME 93.3 fL (80.0-94.0); MEAN PLATELET VOLUME 10.7 fL (7.4-11.4); RED BLOOD COUNT 2.84 10^6/uL (4.70-6.10); RED CELL DISTRIBUTION WIDTH 22.5 % (12.0-15.0); WHITE BLOOD COUNT 9.5 x10^3/uL (4.8-10.8)
[2023-03-09 06:27] LABS: ALBUMIN 1.8 g/dL (3.2-5.5); BILIRUBIN,DIRECT 2.9 mg/dL (0.1-0.5); BILIRUBIN,TOTAL 7.8 mg/dL (0.2-1.0); TOTAL PROTEIN 6.7 g/dL (6.7-8.2)
[2023-03-09] MEDS: PANTOPRAZOLE 40 MG TABLET PO SCH ×2 (09:07→21:34)
[2023-03-09] MEDS: SPIRONOLACTONE 25 MG TABLET PO SCH (09:07)
[2023-03-09] MEDS: LACTULOSE 10 GM /15 ML UDC PO SCH ×4 (09:07→21:34)
[2023-03-09] MEDS: PRENATAL VITAMIN TABLET PO SCH (09:08)
[2023-03-09] MEDS: MAGNESIUM OXIDE 400 MG TABLET PO SCH (09:08)
[2023-03-09] MEDS: nadoloL 20 MG TABLET PO SCH (09:08)
[2023-03-09] MEDS: THIAMINE 100 MG TABLET PO SCH (09:09)
[2023-03-09] MEDS: VENLAFAXINE ER 75 MG CAPSULE PO SCH (09:09)
[2023-03-09] MEDS ORDERED: LACTULOSE 10 GM /15 ML UDC PO SCH ×2 (10:01→10:08)
[2023-03-10] MEDS: SODIUM CHLORIDE FLUSH 0.9% 10 ML SYRINGE IVP SCH ×3 (00:28→16:08)
[2023-03-10 04:57] LABS: BASOPHILS # (AUTO) 0.1 10^3/uL (0.0-0.1); BASOPHILS % (AUTO) 1.5 %; EOSINOPHILS # (AUTO) 0.4 10^3/uL (0.0-0.7); EOSINOPHILS % (AUTO) 3.8 %; HGB - HEMOGLOBIN 7.6 g/dL (14.0-18.0); LYMPHOCYTES % (AUTO) 20.9 %; MEAN CORPUSCULAR HEMOGLOBIN 27.9 pg (27.0-31.0); MEAN CORPUSCULAR HGB CONC 29.2 g/dL (32.0-36.0); MEAN CORPUSCULAR VOLUME 95.6 fL (80.0-94.0); MEAN PLATELET VOLUME 10.6 fL (7.4-11.4); MONOCYTES # (AUTO) 1.4 10^3/uL (0.0-1.0); MONOCYTES % (AUTO) 14.5 %; NEUTROPHILS # (AUTO) 5.6 10^3/uL (1.5-6.6); PLT - PLATELET COUNT 144 10^3/uL (130-450); RED BLOOD COUNT 2.72 10^6/uL (4.70-6.10); RED CELL DISTRIBUTION WIDTH 22.5 % (12.0-15.0); WHITE BLOOD COUNT 9.5 x10^3/uL (4.8-10.8)
[2023-03-10 04:59] LABS: SLIDE REVIEW? Indicated
[2023-03-10 05:08] LABS: ALBUMIN 1.9 g/dL (3.2-5.5); ALBUMIN/GLOBULIN RATIO 0.4 (1.0-2.2); BILIRUBIN,TOTAL 6.9 mg/dL (0.2-1.0); CREATININE 0.5 mg/dL (0.6-1.2); POTASSIUM 3.8 mmol/L (3.5-5.0); TOTAL PROTEIN 6.9 g/dL (6.7-8.2)
[2023-03-10 05:13] LABS: PLATELET ESTIMATE, MANUAL NORMAL (130-450,000) (NORMAL); PLATELET MORPHOLOGY NORMAL APPEARANCE (NORMAL); WBC MORPHOLOGY (MULTIPLE) NORMAL APPEARANCE (NORMAL)
[2023-03-10] MEDS: nadoloL 20 MG TABLET PO SCH (09:33)
[2023-03-10] MEDS: THIAMINE 100 MG TABLET PO SCH (09:33)
[2023-03-10] MEDS: PRENATAL VITAMIN TABLET PO SCH (09:34)
[2023-03-10] MEDS: MAGNESIUM OXIDE 400 MG TABLET PO SCH (09:34)
[2023-03-10] MEDS: PANTOPRAZOLE 40 MG TABLET PO SCH ×2 (09:34→21:22)
[2023-03-10] MEDS: SPIRONOLACTONE 25 MG TABLET PO SCH (09:34)
[2023-03-10] MEDS: VENLAFAXINE ER 75 MG CAPSULE PO SCH (09:34)
[2023-03-10] MEDS: LACTULOSE 10 GM /15 ML UDC PO SCH ×3 (10:09→21:22)
[2023-03-10 11:58] LABS: INR 2.4 (0.8-1.2); PT - PROTHROMBIN TIME 25.5 secs (9.9-12.6)
[2023-03-10] MEDS ORDERED: BACITRACIN ZINC OINT 1 PACKET TOP PRN (14:11)
--- NOTE | 2023-03-10 14:29 | PROVIDER PROGRESS NOTE ---
Progress Note Assessment/Plan - Problem List (6) Hyperammonemia Assessment/Plan: Assessment/Plan: All labs were reviewed. His ammonia level was 78>> 95>> 85>> 97>> 73 yesterday and there had been no BMs for 1.5 days. I increased his lactulose 10 TID with meals to 20 TID with meals yesterday and today the Ammonia is 103 and he is again lethargic Librium has been tapered down to off and has been stopped on 03/05. I suspect he is lethargic and hypersomnolent from this ammonia elevation and from receiving benzos that have not yet cleared his system Plan: Follow ammonia level daily We will continue with po Lactulose and titrate to 3 loose BMs/day max. March 09, 2023-be more aggressive with lactulose dosing in order to get several loose stools daily which she has not been having March 10, 2023-patient has had approximately 5 loose stools and is much more c ogent today (2) Weakness Conclusion/Plan: He has been more lethargic for several days. A STAT brain MRI was done on 03/05 to evaluate for acute findings. This was negative. I also got a message that his niece Aspen Gould spoke to the patient's nurse and reported that over several years he has had increasing paranoia, auditory hallucinations, has "very high highs and very low lows". She said he is easily agitated and does not follow cues or answer questions. A psychiatry evaluation was questioned by that neice if it would be needed. I suspect he is lethargic and hypersomnolent from the ammonia elevation and also from receiving benzos that have not yet cleared his system On .4 being more awake, he admitted that he is depressed "because a friend did not visit him here" Plan: Continue to work with PT and OT when he is less somnolent. Plan will be to go to SNF for PT and OT rehab. SW to choice him Once his sensorium is more cleared, he may need a cognitive evaluation done by OT, and a TECHNOLOGY AND ENGINEERING TEACHER eval for depression as well. 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 His liver appeared cirrhotic. He has an elevated INR , low platelets, elevated ammonia level and had elevated LFTs and bili is still up, consistent with liver disease. He had ascites on exam and got Lasix plus Spironoplactone, now is just on the Spironolactone. I asked him what his plan is for remaining off alcohol and he says just to quit it, and that he "has quit many times before", to which I then asked why he went back on alcohol, and he says it was from stress. On 03.07 being more awake, he admitted that he is depressed "because a friend did not visit him here". We discussed depression and anxiety. He had no SI. I started him on an SSRI on 03/07, explaining how they work, and he was interested. Plan: Continue daily Thiamine 100 mg p.o. Continue p.o. Spironolactone Continue working with PT and OT. SNF is recommended by therapists and he agreed. (4) Constipation Despite being on lactulose 20 g 3 times daily, his last BM was 2 days ago and it was a hard formed stool Plan: RN has asked him and he prefers to get a bisacodyl suppository (will order that now), and if that does not work then a saline enema prn March 09, 2023-Will increase dosing of lactulose to help with hyperammonemia as noted above along with his constipation (5) Elevated INR Conclusion/Plan: Secondary to liver disease. All labs were reviewed. He got FFP and vitamin K and INR went from 2.7 at admission >> 2.6>> 2.0>> 2.4>> 2.7>> 2.4 Plan: Will monitor INR intermittently for possible further need for FFP or vit K. (6) Gastrointestinal hemorrhage with hematemesis Impression: Pt presented with hematemesis. His abdomen CT showed large distal esophageal varices. He was seen in consultation by general surgeon who did EGD, which showed esophageal varices from cirrhosis, but they were not bleeding. He was found to have friable esophagitis and gastritis, due either to batsheva or gastro-esophageal reflux along with his coagulopathy, and this combination caused his presenting symptoms. He was started on meds for gastritis and also antifungal and Sucralfate His diet has been advanced slowly and he is tolerating it, no nausea, no rebleeds I stopped the Sucralfate Plan: Follow CBC w/out diff intermittently Continue with Protonix BID. (7) Anemia Conclusion/Plan: Patient was transfused 4 units PRBC. All labs were reviewed. Hgb went from 3.9 at admission >> 7.6>> 8.3>> 7.5>> 8 and has been stable at 8 for 3 days Source of his anemia is GI bleed from his severe gastritis and esophagitis, on top of having low plts and elevated INR. Plan: Follow CBC w/out diff intermittently, and transfuse if Hgb under 7 or if symptomatic and Hgb under 8, and plt transfuse if <10 or if bleeding and plt <50. (8) Esophageal candidiasis Impression: During the EGD the general surgeon felt that he had a white coating on the esophagus consistent with candidal esophagitis. Fluconazole oral was started He completed a 7-day dose of fluconazole. (9) Alcohol abuse with withdrawal Withdrawal sx have RESOLVED CIWA protocol assessment was stopped Librium has been tapered down to off and was stopped on 03/05. I suspect he is lethargic and hypersomnolent from this ammonia elevation and fr om receiving benzos, that have not yet cleared his system - Current Meds Current Meds: Current Medications Generic Name Dose Route Start Last Admin Trade Name Freq PRN Reason Stop Dose Admin Lactulose 40 gm 03/09/23 10:15 03/09/23 12:31 Lactulose 10 Gm /15 Ml Udc PO 40 gm QID ANDREW Administration Magnesium Oxide 400 mg 03/04/23 12:00 03/09/23 09:08 Magnesium Oxide 400 Mg Tablet PO 400 mg DAILYWM ANDREW Administration Nadolol 10 mg 03/03/23 09:00 03/09/23 09:08 Nadolol 20 Mg Tablet PO 10 mg DAILY ANDREW Administration Ondansetron HCl 4 mg 02/27/23 13:40 03/08/23 06:07 Ondansetron 4 Mg/2 Ml Vial IVP 4 mg Q6HR PRN Administration Nausea / Vomiting Pantoprazole Sodium 40 mg 02/28/23 11:00 03/09/23 09:07 Pantoprazole 40 Mg Tablet PO 40 mg BID ANDREW Administration Multivit/Folic Acid/Iron 1 tab 03/02/23 08:00 03/09/23 09:08 Vitamin Tablet PO 1 tab DAILYWM ANDREW Administration Sodium Chloride 10 ml 02/27/23 17:00 03/09/23 09:09 Sodium Chloride Flush 0.9% 10 Ml Syringe IVP 10 ml 0100,0900,1700 ANDREW Administration Sodium Chloride 10 ml 02/27/23 13:40 02/28/23 19:40 Sodium Chloride Flush 0.9% 10 Ml Syringe IVP 10 ml PRN PRN Administration NEEDED PER PROVIDER ORDERS Spironolactone 25 mg 02/28/23 15:44 03/09/23 09:07 Spironolactone 25 Mg Tablet PO 25 mg DAILY ANDREW Administration Thiamine HCl 100 mg 03/01/23 09:00 03/09/23 09:09 Thiamine 100 Mg Tablet PO 100 mg DAILY ANDREW Administration Venlafaxine HCl 75 mg 03/08/23 09:00 03/09/23 09:09 Venlafaxine Er 75 Mg Capsule PO 75 mg DAILY ANDREW Administration - Lab Result Fish Bone Diagrams: 03/09/23 06:06 03/08/23 05:37 - Additional Planning My Orders: My Active Orders 03/10/23 05:00 AMMONIA [CHEM] DAILYLAB CBC - COMP BLD CT W/AUTO DIFF [HEME] DAILYLAB CBC - COMP BLD CT W/AUTO DIFF [HEME] DAILYLAB CMP [COMPREHENSIVE METABOLIC PANEL] [CHEM] DAILYLAB 03/11/23 05:00 CBC - COMP BLD CT W/AUTO DIFF [HEME] DAILYLAB CMP [COMPREHENSIVE METABOLIC PANEL] [CHEM] DAILYLAB 03/12/23 05:00 CBC - COMP BLD CT W/AUTO DIFF [HEME] DAILYLAB CMP [COMPREHENSIVE METABOLIC PANEL] [CHEM] DAILYLAB 03/13/23 05:00 CBC - COMP BLD CT W/AUTO DIFF [HEME] DAILYLAB CMP [COMPREHENSIVE METABOLIC PANEL] [CHEM] DAILYLAB 03/14/23 05:00 CBC - COMP BLD CT W/AUTO DIFF [HEME] DAILYLAB CMP [COMPREHENSIVE METABOLIC PANEL] [CHEM] DAILYLAB 03/15/23 05:00 CBC - COMP BLD CT W/AUTO DIFF [HEME] DAILYLAB CMP [COMPREHENSIVE METABOLIC PANEL] [CHEM] DAILYLAB 03/16/23 05:00 CBC - COMP BLD CT W/AUTO DIFF [HEME] DAILYLAB CMP [COMPREHENSIVE METABOLIC PANEL] [CHEM] DAILYLAB 03/17/23 05:00 CBC - COMP BLD CT W/AUTO DIFF [HEME] DAILYLAB CMP [COMPREHENSIVE METABOLIC PANEL] [CHEM] DAILYLAB Subjective - Subjective Patient Reports: No Complaints Objective Vital Signs: Vital Signs - 24 hr 03/09/23 03/09/23 03/09/23 02:00 09:12 16:08 Temperature 36.6 C 36.3 C L 36.5 C Heart Rate [ 69 70 97 Brachial] Respiratory 16 16 18 Rate Blood Pressure 110/70 111/74 100/64 [Right Brachial artery] O2 Saturation 95 96 95 Oxygen O2 Source Room air I&O (Last 24 Hrs): Intake and Output Totals x24h 03/07/23 03/08/23 03/09/23 23:59 23:59 23:59 Intake Total 830 440 970 Output Total 240 Balance 830 440 730 General: Alert, Other (Somewhat slow to respond but does eventually answer questions fairly appropriately) HEENT: Atraumatic Neck: Supple Neuro: Non Focal Cardiovascular: Regular rate, Normal S1, Normal S2 Respiratory: Chest non-tender, No respiratory distress Abdomen: Normal bowel sounds, Soft Comments/Notes: Jaundice - Results Results: Laboratory Results WBC 9.5 x10^3/uL (4.8-10.8) 03/09/23 06:06 RBC 2.84 10^6/uL (4.70-6.10) L 03/09/23 06:06 Hgb 7.9 g/dL (14.0-18.0) L 03/09/23 06:06 Hct 26.5 % (42.0-52.0) L 03/09/23 06:06 MCV 93.3 fL (80.0-94.0) 03/09/23 06:06 MCH 27.8 pg (27.0-31.0) 03/09/23 06:06 MCHC 29.8 g/dL (32.0-36.0) L 03/09/23 06:06 RDW 22.5 % (12.0-15.0) H 03/09/23 06:06 Plt Count 141 10^3/uL (130-450) 03/09/23 06:06 MPV 10.7 fL (7.4-11.4) 03/09/23 06:06 Neut # (Auto) Not Reportable 03/03/23 04:54 Lymph # (Auto) Not Reportable 03/03/23 04:54 [place] # (Auto) Not Reportable 03/03/23 04:54 Eos # (Auto) Not Reportable 03/03/23 04:54 Baso # (Auto) Not Reportable 03/03/23 04:54 Absolute Nucleated RBC Not Reportable 03/03/23 04:54 Total Counted 100 03/03/23 04:54 Band Neuts % (Manual) 1 % (0-10) 03/03/23 04:54 Abnorm Lymph % (Manual) 0 % 03/03/23 04:54 Nucleated RBC % Not Reportable 03/03/23 04:54 Neutrophils # (Manual) 6.9 10^3/uL (1.5-6.6) H 03/03/23 04:54 Lymphocytes # (Manual) 1.9 10^3/uL (1.5-3.5) 03/03/23 04:54 Monocytes # (Manual) 1.1 10^3/uL (0.0-1.0) H 03/03/23 04:54 Eosinophils # (Manual) 0.3 10^3/uL (0-0.7) 03/03/23 04:54 Basophils # (Manual) 0.2 10^3/uL (0-0.1) H 03/03/23 04:54 Differential Comment MANUAL DIFFERENTIAL 03/03/23 04:54 Manual Slide Review Indicated 03/02/23 01:42 WBC Morphology NORMAL APPEARANCE (NORMAL) 03/03/23 04:54 Platelet Estimate DECREASED (<130,000) (NORMAL) 03/03/23 04:54 Platelet Morphology NORMAL APPEARANCE (NORMAL) 03/03/23 04:54 RBC Morph Micro Appear 3+ ANISOCYTOSIS (NORMAL) 2+ HYPOCHROMASIA (NORMAL) 1+ ACANTHOCYTES (NORMAL) 1+ SCHISTOCYTES (NORMAL) 03/03/23 04:54 RBC Morph Micro Appear 3+ ANISOCYTOSIS (NORMAL) 2+ HYPOCHROMASIA (NORMAL) 1+ ACANTHOCYTES (NORMAL) 1+ SCHISTOCYTES (NORMAL) 03/03/23 04:54 RBC Morph Micro Appear 3+ ANISOCYTOSIS (NORMAL) 2+ HYPOCHROMASIA (NORMAL) 1+ ACANTHOCYTES (NORMAL) 1+ SCHISTOCYTES (NORMAL) 03/03/23 04:54 RBC Morph Micro Appear 3+ ANISOCYTOSIS (NORMAL) 2+ HYPOCHROMASIA (NORMAL) 1+ ACANTHOCYTES (NORMAL) 1+ SCHISTOCYTES (NORMAL) 03/03/23 04:54 PT 29.8 secs (9.9-12.6) H 03/08/23 05:37 INR 2.9 (0.8-1.2) H 03/08/23 05:37 APTT 31.8 secs (24.9-33.3) 03/01/23 00:13 VBG pH 7.513 (7.31-7.41) H 03/02/23 01:42 Ionized Calcium 1.08 mmol/L (1.15-1.33) L 03/02/23 01:42 Sodium 136 mmol/L (135-145) 03/08/23 05:37 Potassium 3.9 mmol/L (3.5-5.0) 03/08/23 05:37 Chloride 108 mmol/L (101-111) 03/08/23 05:37 Carbon Dioxide 23 mmol/L (21-32) 03/08/23 05:37 Anion Gap 5.0 (6-13) L 03/08/23 05:37 BUN 8 mg/dL (6-20) 03/08/23 05:37 Creatinine 0.7 mg/dL (0.6-1.2) 03/08/23 05:37 Estimated GFR (MDRD) 115 (>89) 03/08/23 05:37 Glucose 118 mg/dL (70-100) H 03/08/23 05:37 POC Whole Bld Glucose 113 mg/dL (70 - 100) H 02/27/23 23:26 Calcium 8.0 mg/dL (8.5-10.3) L 03/08/23 05:37 Phosphorus 2.5 mg/dL (2.5-4.6) 03/02/23 01:42 Magnesium 2.1 mg/dL (1.7-2.8) 03/07/23 04:52 Total Bilirubin 7.8 mg/dL (0.2-1.0) H 03/09/23 06:06 Direct Bilirubin 2.9 mg/dL (0.1-0.5) H 03/09/23 06:06 AST 47 IU/L (10-42) H 03/09/23 06:06 ALT 18 IU/L (10-60) 03/09/23 06:06 Alkaline Phosphatase 67 IU/L (42-121) 03/09/23 06:06 Ammonia 64.8 umol/L (7-35) H 03/09/23 06:06 Troponin I High Sens 13.5 ng/L (2.3-19.7) 02/27/23 13:43 B-Natriuretic Peptide 695 pg/mL (5-100) H 03/02/23 01:42 Total Protein 6.7 g/dL (6.7-8.2) 03/09/23 06:06 Albumin 1.8 g/dL (3.2-5.5) L 03/09/23 06:06 Globulin 4.9 g/dL (2.1-4.2) H 03/09/23 06:06 Albumin/Globulin Ratio 0.4 (1.0-2.2) L 03/03/23 04:54 Lipase 76 U/L (22-51) H 02/26/23 19:24 Urine Color BROWN 02/27/23 14:04 Urine Clarity CLEAR (CLEAR) 02/27/23 14:04 Urine pH 5.5 PH (5.0-7.5) 02/27/23 14:04 Ur Specific [place] 1.025 (1.002-1.030) 02/27/23 14:04 Urine Protein TRACE mg/dL (NEGATIVE) 02/27/23 14:04 Urine Glucose (UA) NEGATIVE mg/dL (NEGATIVE) 02/27/23 14:04 Urine Ketones TRACE mg/dL (NEGATIVE) 02/27/23 14:04 Urine Occult Blood NEGATIVE (NEGATIVE) 02/27/23 14:04 Urine Nitrite POSITIVE (NEGATIVE) H 02/27/23 14:04 Urine Bilirubin MODERATE (NEGATIVE) H 02/27/23 14:04 Urine Urobilinogen >=8.0 E.U./dL (NORMAL) H 02/27/23 14:04 Ur Leukocyte Esterase TRACE (NEGATIVE) H 02/27/23 14:04 Urine RBC 0-5 /HPF (0-5) 02/27/23 14:04 Urine WBC 0-3 /HPF (0-3) 02/27/23 14:04 Ur Squamous Epith Cells RARE Squamous (<= Few) 02/27/23 14:04 Urine Bacteria Few /HPF (None Seen) 02/27/23 14:04 Ur Microscopic Review INDICATED 02/27/23 14:04 Urine Culture Comments INDICATED 02/27/23 14:04 Nasal Screen MRSA (PCR) NEGATIVE (NEGATIVE) 02/27/23 14:04 Ethyl Alcohol 82.3 mg/dL 02/26/23 19:24 Blood Type O NEGATIVE 02/26/23 19:46 Blood Type Recheck O NEGATIVE 02/26/23 19:24 Antibody Screen NEGATIVE 02/26/23 19:46 Crossmatch IS Only See Detail 02/26/23 19:46 ABX Reporting Has patient been on IV antibiotics over the past 48 hours?: No
[2023-03-10] MEDS ORDERED: CHERRY SYRUP 10 ML UDC PO ONE (14:33)
[2023-03-10] MEDS: FERROUS SULFATE 325 MG TABLET PO SCH (16:08)
[2023-03-11] MEDS: SODIUM CHLORIDE FLUSH 0.9% 10 ML SYRINGE IVP SCH ×3 (00:03→17:34)
[2023-03-11 04:57] LABS: BASOPHILS # (AUTO) 0.1 10^3/uL (0.0-0.1); BASOPHILS % (AUTO) 1.3 %; EOSINOPHILS # (AUTO) 0.5 10^3/uL (0.0-0.7); EOSINOPHILS % (AUTO) 4.8 %; HCT - HEMATOCRIT 24.5 % (42.0-52.0); HGB - HEMOGLOBIN 7.5 g/dL (14.0-18.0); LYMPHOCYTES # (AUTO) 2.4 10^3/uL (1.5-3.5); LYMPHOCYTES % (AUTO) 25.2 %; MEAN CORPUSCULAR HEMOGLOBIN 28.8 pg (27.0-31.0); MEAN CORPUSCULAR HGB CONC 30.6 g/dL (32.0-36.0); MEAN CORPUSCULAR VOLUME 94.2 fL (80.0-94.0); MEAN PLATELET VOLUME 9.8 fL (7.4-11.4); MONOCYTES # (AUTO) 1.3 10^3/uL (0.0-1.0); NEUTROPHILS # (AUTO) 5.1 10^3/uL (1.5-6.6); NEUTROPHILS % (AUTO) 54.5 %; PLT - PLATELET COUNT 145 10^3/uL (130-450); RED CELL DISTRIBUTION WIDTH 22.7 % (12.0-15.0); WHITE BLOOD COUNT 9.4 x10^3/uL (4.8-10.8)
[2023-03-11 04:59] LABS: SLIDE REVIEW? Indicated
[2023-03-11] MEDS: LACTULOSE 10 GM /15 ML UDC PO SCH (05:11)
[2023-03-11 05:16] LABS: ALBUMIN 1.8 g/dL (3.2-5.5); ALBUMIN/GLOBULIN RATIO 0.4 (1.0-2.2); BILIRUBIN,TOTAL 5.8 mg/dL (0.2-1.0); CALCIUM 8.2 mg/dL (8.5-10.3); CREATININE 0.6 mg/dL (0.6-1.2); POTASSIUM 4.2 mmol/L (3.5-5.0); TOTAL PROTEIN 6.9 g/dL (6.7-8.2)
[2023-03-11 05:20] LABS: PLATELET ESTIMATE, MANUAL NORMAL (130-450,000) (NORMAL); PLATELET MORPHOLOGY NORMAL APPEARANCE (NORMAL); WBC MORPHOLOGY (MULTIPLE) NORMAL APPEARANCE (NORMAL)
[2023-03-11] MEDS: THIAMINE 100 MG TABLET PO SCH (08:06)
[2023-03-11] MEDS: SPIRONOLACTONE 25 MG TABLET PO SCH (08:06)
[2023-03-11] MEDS: PHYTONADIONE 10 MG/ML AMP PO SCH (08:06)
[2023-03-11] MEDS: FERROUS SULFATE 325 MG TABLET PO SCH ×2 (08:06→17:34)
[2023-03-11] MEDS: PRENATAL VITAMIN TABLET PO SCH (08:06)
[2023-03-11] MEDS: PANTOPRAZOLE 40 MG TABLET PO SCH ×2 (08:06→20:38)
[2023-03-11] MEDS: MAGNESIUM OXIDE 400 MG TABLET PO SCH (08:06)
[2023-03-11] MEDS: VENLAFAXINE ER 75 MG CAPSULE PO SCH (08:06)
[2023-03-11] MEDS: nadoloL 20 MG TABLET PO SCH (08:10)
[2023-03-11] MEDS: LACTULOSE 10 GM/15 ML BOTTLE PO SCH ×3 (12:57→20:39)
[2023-03-12] MEDS: SODIUM CHLORIDE FLUSH 0.9% 10 ML SYRINGE IVP SCH ×3 (01:50→16:55)
[2023-03-12 06:06] LABS: BASOPHILS # (AUTO) 0.1 10^3/uL (0.0-0.1); BASOPHILS % (AUTO) 1.4 %; EOSINOPHILS # (AUTO) 0.5 10^3/uL (0.0-0.7); EOSINOPHILS % (AUTO) 5.3 %; HCT - HEMATOCRIT 25.6 % (42.0-52.0); HGB - HEMOGLOBIN 7.7 g/dL (14.0-18.0); LYMPHOCYTES # (AUTO) 2.3 10^3/uL (1.5-3.5); LYMPHOCYTES % (AUTO) 24.2 %; MEAN CORPUSCULAR HEMOGLOBIN 28.3 pg (27.0-31.0); MEAN CORPUSCULAR HGB CONC 30.1 g/dL (32.0-36.0); MEAN CORPUSCULAR VOLUME 94.1 fL (80.0-94.0); MEAN PLATELET VOLUME 10.3 fL (7.4-11.4); MONOCYTES # (AUTO) 1.3 10^3/uL (0.0-1.0); MONOCYTES % (AUTO) 13.8 %; NEUTROPHILS # (AUTO) 5.2 10^3/uL (1.5-6.6); PLT - PLATELET COUNT 172 10^3/uL (130-450); RED BLOOD COUNT 2.72 10^6/uL (4.70-6.10); RED CELL DISTRIBUTION WIDTH 23.2 % (12.0-15.0); WHITE BLOOD COUNT 9.5 x10^3/uL (4.8-10.8)
[2023-03-12 06:08] LABS: SLIDE REVIEW? Indicated
[2023-03-12 06:20] LABS: ALBUMIN 1.8 g/dL (3.2-5.5); ALBUMIN/GLOBULIN RATIO 0.3 (1.0-2.2); BILIRUBIN,TOTAL 5.9 mg/dL (0.2-1.0); CALCIUM 7.9 mg/dL (8.5-10.3); CREATININE 0.6 mg/dL (0.6-1.2)
[2023-03-12 06:36] LABS: PLATELET ESTIMATE, MANUAL NORMAL (130-450,000) (NORMAL)
[2023-03-12] MEDS: FERROUS SULFATE 325 MG TABLET PO SCH ×2 (08:59→16:55)
[2023-03-12] MEDS: MAGNESIUM OXIDE 400 MG TABLET PO SCH (08:59)
[2023-03-12] MEDS: PHYTONADIONE 10 MG/ML AMP PO SCH (09:00)
[2023-03-12] MEDS: PRENATAL VITAMIN TABLET PO SCH (09:00)
[2023-03-12] MEDS: CHERRY SYRUP 10 ML UDC PO SCH (09:00)
[2023-03-12] MEDS: SPIRONOLACTONE 25 MG TABLET PO SCH (09:01)
[2023-03-12] MEDS: THIAMINE 100 MG TABLET PO SCH (09:01)
[2023-03-12] MEDS: VENLAFAXINE ER 75 MG CAPSULE PO SCH (09:01)
[2023-03-12] MEDS: PANTOPRAZOLE 40 MG TABLET PO SCH ×2 (09:01→20:42)
[2023-03-12] MEDS: nadoloL 20 MG TABLET PO SCH (09:06)
[2023-03-12] MEDS: LACTULOSE 10 GM/15 ML BOTTLE PO SCH ×4 (09:07→20:42)
--- NOTE | 2023-03-12 11:34 | Discharge Plan ---
Discharge Plan for SNF / FANY - Discharge Plan And Transition Orders Problem Reviewed?: Yes Disposition: 03 SNF DC/Xfer Condition: Good Allergies and Adverse Reactions: Allergies Allergy/AdvReac Type Severity Reaction Status Date / Time amoxicillin Allergy Hives Verified 02/26/23 21:27 Plan of Treatment: Rehab potential exists and PT OT for strengthening Assessment: Patient to be discharged from inpatient to [facility] for nursing home facility care with OT PT and rehab - SNF / LONG TERM Transition Orders Admit to (Facility): [facility] Discharge Diagnosis: Upper GI bleed resolved Alcoholic cirrhosis Alcohol withdrawal completed care Medicare Certification Statement: I certify that [facility] nursing home care is medically necessary on a continuing basis for any of the conditions for which she/he is receiving care during hospitalization. Notify PCP of admission and forward orders to primary provider for signature. Weight on admission and: Daily Other Notification Orders: Call PCP immediately if patient develops dyspnea, chest pain/tightness or edema. Additional Bowel Program Orders: If no BM after 2 days, nurse may give M.O.M. 30ml PO PRN and/or ducolax Supp 1 NE and/or KATHY 250mg P.O., and/or senna 1-2 tabs PO. On day 3 nurse may give repeat above order until residents constipation is resolved. Annual Influenza Vaccine (between Jun 04 and January 01): Yes Two-step PPD per [facility] [phone] or approved exception documents: Yes Medication Orders: PLEASE REFER TO THE DISCHARGE MEDICATION LIST. Insulin Orders?: No - Medications New Prescriptions: Spironolactone [Aldactone] 25 mg PO DAILY #30 tab nadoloL [Corgard] 10 mg PO DAILY #30 tab Venlafaxine ER [Effexor ER] 75 mg PO DAILY #30 cap Ferrous Sulfate [Feosol] 325 mg PO BIDWM #60 tab Lactulose 30 gm PO QID 30 Days #120 each Magnesium Oxide [Mag Ox] 400 mg PO DAILYWM #30 tab Pnv No.121/Iron/Folic Acid [ Multivitamin Tablet] 1 each PO DAILY #30 tablet Pantoprazole [Protonix] 40 mg PO BID #60 tab Thiamine [Vitamin B-1] 100 mg PO DAILY #30 tab
--- NOTE | 2023-03-12 11:47 | DISCHARGE SUMMARY ---
Discharge Summary Admit Date: 02/27/23 Code Status: Attempt Resuscitation Condition at Discharge: Good Discharge Disposition: SNF DC/Xfer Discharge Facility Name: [facility] - DIAGNOSES Admission Diagnoses: Upper GI bleed Discharge Diagnoses with Status of Each Condition: UGIB Alcoholic cirrhosis alcoholic hepatitis - HPI History of Present Illness: (2) Acute blood loss anemia Assessment/Plan: (6) Hyperammonemia Assessment/Plan: Assessment/Plan: All labs were reviewed. His ammonia level was 78>> 95>> 85>> 97>> 73 yesterday and there had been no BMs for 1.5 days. I increased his lactulose 10 TID with meals to 20 TID with meals yesterday and today the Ammonia is 103 and he is again lethargic Librium has been tapered down to off and has been stopped on 03/05. I suspect he is lethargic and hypersomnolent from this ammonia elevation and from receiving benzos that have not yet cleared his system Plan: Follow ammonia level daily We will continue with po Lactulose and titrate to 3 loose BMs/day max. March 09, 2023-be more aggressive with lactulose dosing in order to get several loose stools daily which she has not been having March 10, 2023-patient has had approximately 5 loose stools and is much more cogent today March 11, 2023-currently medically stable and awaiting SNF placement (2) Weakness Conclusion/Plan: He has been more lethargic for several days. A STAT brain MRI was done on 03/05 to evaluate for acute findings. This was negative. I also got a message that his niece Aspen Gould spoke to the patient's nurse and reported that over several years he has had increasing paranoia, auditory hallucinations, has "very high highs and very low lows". She said he is easily agitated and does not follow cues or answer questions. A psychiatry evaluation was questioned by that neice if it would be needed. I suspect he is lethargic and hypersomnolent from the ammonia elevation and also from receiving benzos that have not yet cleared his system On .4 being more awake, he admitted that he is depressed "because a friend did not visit him here" Plan: Continue to work with PT and OT when he is less somnolent. Plan will be to go to SNF for PT and OT rehab. SW to choice him Once his sensorium is more cleared, he may need a cognitive evaluation done by OT, and a MACHINE FUR CLEANER eval for depression as well. 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 His liver appeared cirrhotic. He has an elevated INR , low platelets, elevated ammonia level and had elevated LFTs and bili is still up, consistent with liver disease. He had ascites on exam and got Lasix plus Spironoplactone, now is just on the Spironolactone. I asked him what his plan is for remaining off alcohol and he says just to quit it, and that he "has quit many times before", to which I then asked why he went back on alcohol, and he says it was from stress. On 03.07 being more awake, he admitted that he is depressed "because a friend did not visit him here". We discussed depression and anxiety. He had no SI. I started him on an SSRI on 03/07, explaining how they work, and he was interested. Plan: Continue daily Thiamine 100 mg p.o. Continue p.o. Spironolactone Continue working with PT and OT. SNF is recommended by therapists and he agreed. (4) Constipation Despite being on lactulose 20 g 3 times daily, his last BM was 2 days ago and it was a hard formed stool Plan: RN has asked him and he prefers to get a bisacodyl suppository (will order that now), and if that does not work then a saline enema prn March 09, 2023-Will increase dosing of lactulose to help with hyperammonemia as noted above along with his constipation (5) Elevated INR Conclusion/Plan: Secondary to liver disease. All labs were reviewed. He got FFP and vitamin K and INR went from 2.7 at admission >> 2.6>> 2.0>> 2.4>> 2.7>> 2.4 Plan: Will monitor INR intermittently for possible further need for FFP or vit K. (6) Gastrointestinal hemorrhage with hematemesis Impression: Pt presented with hematemesis. His abdomen CT showed large distal esophageal varices. He was seen in consultation by general surgeon who did EGD, which showed esophageal varices from cirrhosis, but they were not bleeding. He was found to have friable esophagitis and gastritis, due either to batsheva or gastro-esophageal reflux along with his coagulopathy, and this combination caused his presenting symptoms. He was started on meds for gastritis and also antifungal and Sucralfate His diet has been advanced slowly and he is tolerating it, no nausea, no rebleeds I stopped the Sucralfate Plan: Follow CBC w/out diff intermittently Continue with Protonix BID. (7) Anemia Conclusion/Plan: Patient was transfused 4 units PRBC. All labs were reviewed. Hgb went from 3.9 at admission >> 7.6>> 8.3>> 7.5>> 8 and has been stable at 8 for 3 days Source of his anemia is GI bleed from his severe gastritis and esophagitis, on top of having low plts and elevated INR. Plan: Follow CBC w/out diff intermittently, and transfuse if Hgb under 7 or if symptomatic and Hgb under 8, and plt transfuse if <10 or if bleeding and plt <50. March 11, 2023-currently stable no active bleeding at this time (8) Esophageal candidiasis Impression: During the EGD the general surgeon felt that he had a white coating on the esophagus consistent with candidal esophagitis. Fluconazole oral was started He completed a 7-day dose of fluconazole. (9) Alcohol abuse with withdrawal Withdrawal sx have RESOLVED CIWA protocol assessment was stopped Librium has been tapered down to off and was stopped on 03/05. I suspect he is lethargic and hypersomnolent from this ammonia elevation and from receiving benzos, that have not yet cleared his system - HOSPITAL COURSE Hospital Course: See HPI - ALLERGIES Allergies/Adverse Reactions: Allergies Allergy/AdvReac Type Severity Reaction Status Date / Time amoxicillin Allergy Hives Verified 02/26/23 21:27 - MEDICATIONS Home Medications: Ambulatory Orders Medication Instructions Recorded Confirmed Ferrous Sulfate [Feosol] 325 mg PO BIDWM #60 tab 03/12/23 Lactulose 30 gm PO QID 30 Days #120 each 03/12/23 Magnesium Oxide [Mag Ox] 400 mg PO DAILYWM #30 tab 03/12/23 Pantoprazole [Protonix] 40 mg PO BID #60 tab 03/12/23 Pnv No.121/Iron/Folic Acid 1 each PO DAILY #30 tablet 03/12/23 [ Multivitamin Tablet] Spironolactone [Aldactone] 25 mg PO DAILY #30 tab 03/12/23 Thiamine [Vitamin B-1] 100 mg PO DAILY #30 tab 03/12/23 Venlafaxine ER [Effexor ER] 75 mg PO DAILY #30 cap 03/12/23 nadoloL [Corgard] 10 mg PO DAILY #30 tab 03/12/23 - PHYSICAL EXAM AT DISCHARGE General Appearance: positive: No acute distress, Alert Neck: positive: Nml inspection Respiratory: positive: Breath sounds nml Cardiovascular: positive: Regular rate & rhythm, No murmur Abdomen: positive: Non-tender Skin: positive: Other (Jaundice) Extremities: positive: Non-tender Neurologic/Psychiatric: positive: Oriented x3, Other (Somewhat slow in his responses) - LABS Result Diagrams: 03/12/23 06:00 03/12/23 06:00 - TIME SPENT Time Spent in Discharge (Minutes): 35
[2023-03-13] MEDS: SODIUM CHLORIDE FLUSH 0.9% 10 ML SYRINGE IVP SCH ×3 (00:50→16:56)
[2023-03-13 08:21] LABS: BASOPHILS # (AUTO) 0.1 10^3/uL (0.0-0.1); BASOPHILS % (AUTO) 1.5 %; EOSINOPHILS # (AUTO) 0.5 10^3/uL (0.0-0.7); EOSINOPHILS % (AUTO) 5.9 %; HCT - HEMATOCRIT 25.1 % (42.0-52.0); HGB - HEMOGLOBIN 7.7 g/dL (14.0-18.0); LYMPHOCYTES # (AUTO) 1.6 10^3/uL (1.5-3.5); LYMPHOCYTES % (AUTO) 20.7 %; MEAN CORPUSCULAR HEMOGLOBIN 29.2 pg (27.0-31.0); MEAN CORPUSCULAR HGB CONC 30.7 g/dL (32.0-36.0); MEAN CORPUSCULAR VOLUME 95.1 fL (80.0-94.0); MEAN PLATELET VOLUME 10.2 fL (7.4-11.4); MONOCYTES # (AUTO) 1.1 10^3/uL (0.0-1.0); MONOCYTES % (AUTO) 13.8 %; NEUTROPHILS # (AUTO) 4.5 10^3/uL (1.5-6.6); NEUTROPHILS % (AUTO) 57.7 %; PLT - PLATELET COUNT 176 10^3/uL (130-450); RED BLOOD COUNT 2.64 10^6/uL (4.70-6.10); RED CELL DISTRIBUTION WIDTH 23.4 % (12.0-15.0); WHITE BLOOD COUNT 7.8 x10^3/uL (4.8-10.8)
[2023-03-13 08:32] LABS: ALBUMIN 1.9 g/dL (3.2-5.5); ALBUMIN/GLOBULIN RATIO 0.4 (1.0-2.2); BILIRUBIN,TOTAL 6.3 mg/dL (0.2-1.0); CALCIUM 8.1 mg/dL (8.5-10.3); CREATININE 0.6 mg/dL (0.6-1.2); POTASSIUM 3.9 mmol/L (3.5-5.0); TOTAL PROTEIN 7.2 g/dL (6.7-8.2)
[2023-03-13 08:55] LABS: SLIDE REVIEW? Indicated
[2023-03-13 08:59] LABS: PLATELET ESTIMATE, MANUAL NORMAL (130-450,000) (NORMAL); PLATELET MORPHOLOGY NORMAL APPEARANCE (NORMAL); WBC MORPHOLOGY (MULTIPLE) NORMAL APPEARANCE (NORMAL)
[2023-03-13] MEDS: PANTOPRAZOLE 40 MG TABLET PO SCH ×2 (10:23→21:03)
[2023-03-13] MEDS: PRENATAL VITAMIN TABLET PO SCH (10:23)
[2023-03-13] MEDS: VENLAFAXINE ER 75 MG CAPSULE PO SCH (10:24)
[2023-03-13] MEDS: THIAMINE 100 MG TABLET PO SCH (10:24)
[2023-03-13] MEDS: FERROUS SULFATE 325 MG TABLET PO SCH ×2 (10:24→16:56)
[2023-03-13] MEDS: MAGNESIUM OXIDE 400 MG TABLET PO SCH (10:24)
[2023-03-13] MEDS: SPIRONOLACTONE 25 MG TABLET PO SCH (10:24)
[2023-03-13] MEDS: CHERRY SYRUP 10 ML UDC PO SCH (10:25)
[2023-03-13] MEDS: PHYTONADIONE 10 MG/ML AMP PO SCH (10:25)
[2023-03-13] MEDS: nadoloL 20 MG TABLET PO SCH (10:27)
[2023-03-13] MEDS: LACTULOSE 10 GM/15 ML BOTTLE PO SCH ×4 (10:27→21:03)
[2023-03-13 15:03] LABS: GLUCOSE, URINE (UA) NEGATIVE (NEGATIVE); KETONES,URINE (UA) NEGATIVE (NEGATIVE); LEUKOCYTE ESTERASE, URINE NEGATIVE (NEGATIVE); NITRITE,URINE NEGATIVE (NEGATIVE); OCCULT BLOOD,URINE NEGATIVE (NEGATIVE); PH,URINE 5.5 PH (5.0-7.5); PROTEIN,URINE NEGATIVE (NEGATIVE); UROBILINOGEN,URINE 0.2 (NORMAL) E.U./dL (NORMAL)
[2023-03-13 15:06] LABS: BILIRUBIN,URINE MODERATE (NEGATIVE); CLARITY,URINE CLEAR (CLEAR); ICTOTEST,URINE POSITIVE
[2023-03-13 15:20] LABS: AMORPHOUS SEDIMENT,UR Moderate /LPF; BACTERIA,URINE Few /HPF (None Seen); MUCUS,URINE Few Strands; RBC,URINE 0-5 /HPF (0-5); SQUAMOUS EPITHELIAL CELL,UR FEW Squamous (<= Few)
[2023-03-13 15:21] LABS: CRYSTALS,URINE 6-10 Calcium Oxalate /LPF
[2023-03-13] MEDS: SODIUM CHLORIDE FLUSH 0.9% 10 ML SYRINGE IVP PRN (21:04)
[2023-03-14] MEDS: SODIUM CHLORIDE FLUSH 0.9% 10 ML SYRINGE IVP SCH ×4 (01:15→21:01)
[2023-03-14 05:22] LABS: BASOPHILS # (AUTO) 0.1 10^3/uL (0.0-0.1); BASOPHILS % (AUTO) 1.4 %; EOSINOPHILS # (AUTO) 0.4 10^3/uL (0.0-0.7); EOSINOPHILS % (AUTO) 5.3 %; HCT - HEMATOCRIT 24.6 % (42.0-52.0); HGB - HEMOGLOBIN 7.5 g/dL (14.0-18.0); LYMPHOCYTES # (AUTO) 2.3 10^3/uL (1.5-3.5); LYMPHOCYTES % (AUTO) 27.9 %; MEAN CORPUSCULAR HEMOGLOBIN 29.1 pg (27.0-31.0); MEAN CORPUSCULAR HGB CONC 30.5 g/dL (32.0-36.0); MEAN CORPUSCULAR VOLUME 95.3 fL (80.0-94.0); MEAN PLATELET VOLUME 11.1 fL (7.4-11.4); MONOCYTES % (AUTO) 12.3 %; NEUTROPHILS # (AUTO) 4.3 10^3/uL (1.5-6.6); NEUTROPHILS % (AUTO) 52.7 %; PLT - PLATELET COUNT 200 10^3/uL (130-450); RED BLOOD COUNT 2.58 10^6/uL (4.70-6.10); RED CELL DISTRIBUTION WIDTH 23.9 % (12.0-15.0); WHITE BLOOD COUNT 8.1 x10^3/uL (4.8-10.8)
[2023-03-14 05:25] LABS: SLIDE REVIEW? Indicated
[2023-03-14 05:41] LABS: ALBUMIN 1.9 g/dL (3.2-5.5); ALBUMIN/GLOBULIN RATIO 0.4 (1.0-2.2); CALCIUM 8.5 mg/dL (8.5-10.3); CREATININE 0.5 mg/dL (0.6-1.2); TOTAL PROTEIN 7.1 g/dL (6.7-8.2)
[2023-03-14 06:19] LABS: PLATELET ESTIMATE, MANUAL NORMAL (130-450,000) (NORMAL)
[2023-03-14] MEDS: nadoloL 20 MG TABLET PO SCH (09:23)
[2023-03-14] MEDS: MAGNESIUM OXIDE 400 MG TABLET PO SCH (09:24)
[2023-03-14] MEDS: LACTULOSE 10 GM/15 ML BOTTLE PO SCH ×4 (09:24→22:07)
[2023-03-14] MEDS: PANTOPRAZOLE 40 MG TABLET PO SCH ×2 (09:24→21:01)
[2023-03-14] MEDS: VENLAFAXINE ER 75 MG CAPSULE PO SCH (09:24)
[2023-03-14] MEDS: THIAMINE 100 MG TABLET PO SCH (09:24)
[2023-03-14] MEDS: SPIRONOLACTONE 25 MG TABLET PO SCH (09:24)
[2023-03-14] MEDS: PRENATAL VITAMIN TABLET PO SCH (09:24)
[2023-03-14] MEDS: FERROUS SULFATE 325 MG TABLET PO SCH ×2 (09:24→16:35)
--- NOTE | 2023-03-14 16:12 | PROVIDER PROGRESS NOTE ---
Progress Note Progress Note Patient was to be discharged today March 12 however this was held up since [facility] is working on payment arrangements. Assessment/Plan - Problem List (2) Acute blood loss anemia Assessment/Plan: (6) Hyperammonemia Assessment/Plan: Assessment/Plan: All labs were reviewed. His ammonia level was 78>> 95>> 85>> 97>> 73 yesterday and there had been no BMs for 1.5 days. I increased his lactulose 10 TID with meals to 20 TID with meals yesterday and today the Ammonia is 103 and he is again lethargic Librium has been tapered down to off and has been stopped on 03/05. I suspect he is lethargic and hypersomnolent from this ammonia elevation and from receiving benzos that have not yet cleared his system Plan: Follow ammonia level daily We will continue with po Lactulose and titrate to 3 loose BMs/day max. March 09, 2023-be more aggressive with lactulose dosing in order to get several loose stools daily which she has not been having March 10, 2023-patient has had approximately 5 loose stools and is much more cogent today March 11, 2023-currently medically stable and awaiting SNF placement (2) Weakness Conclusion/Plan: He has been more lethargic for several days. A STAT brain MRI was done on 03/05 to evaluate for acute findings. This was negative. I also got a message that his niece Aspen Gould spoke to the patient's nurse and reported that over several years he has had increasing paranoia, auditory hallucinations, has "very high highs and very low lows". She said he is easily agitated and does not follow cues or answer questions. A psychiatry evaluation was questioned by that neice if it would be needed. I suspect he is lethargic and hypersomnolent from the ammonia elevation and also from receiving benzos that have not yet cleared his system On . being more awake, he admitted that he is depressed "because a friend did not visit him here" Plan: Continue to work with PT and OT when he is less somnolent. Plan will be to go to SNF for PT and OT rehab. SW to choice him Once his sensorium is more cleared, he may need a cognitive evaluation done by OT, and a DIE CUTTER eval for depression as well. 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 His liver appeared cirrhotic. He has an elevated INR , low platelets, elevated ammonia level and had elevated LFTs and bili is still up, consistent with liver disease. He had ascites on exam and got Lasix plus Spironoplactone, now is just on the Spironolactone. I asked him what his plan is for remaining off alcohol and he says just to quit it, and that he "has quit many times before", to which I then asked why he went back on alcohol, and he says it was from stress. On 03.07 being more awake, he admitted that he is depressed "because a friend did not visit him here". We discussed depression and anxiety. He had no SI. I started him on an SSRI on 03/07, explaining how they work, and he was interested. Plan: Continue daily Thiamine 100 mg p.o. Continue p.o. Spironolactone Continue working with PT and OT. SNF is recommended by therapists and he agreed. (4) Constipation Despite being on lactulose 20 g 3 times daily, his last BM was 2 days ago and it was a hard formed stool Plan: RN has asked him and he prefers to get a bisacodyl suppository (will order that now), and if that does not work then a saline enema prn March 09, 2023-Will increase dosing of lactulose to help with hyperammonemia as noted above along with his constipation (5) Elevated INR Conclusion/Plan: Secondary to liver disease. All labs were reviewed. He got FFP and vitamin K and INR went from 2.7 at admission >> 2.6>> 2.0>> 2.4>> 2.7>> 2.4 Plan: Will monitor INR intermittently for possible further need for FFP or vit K. -No need to monitor INR unless has some active bleeding. 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 His abdomen CT showed large distal esophageal varices. He was seen in consultation by general surgeon who did EGD, which showed esophageal varices from cirrhosis, but they were not bleeding. He was found to have friable esophagitis and gastritis, due either to batsheva or gastro-esophageal reflux along with his coagulopathy, and this combination caused his presenting symptoms. He was started on meds for gastritis and also antifungal and Sucralfate His diet has been advanced slowly and he is tolerating it, no nausea, no rebleeds I stopped the Sucralfate Plan: Follow CBC w/out diff intermittently Continue with Protonix BID. (7) Anemia Conclusion/Plan: Patient was transfused 4 units PRBC. All labs were reviewed. Hgb went from 3.9 at admission >> 7.6>> 8.3>> 7.5>> 8 and has been stable at 8 for 3 days Source of his anemia is GI bleed from his severe gastritis and esophagitis, on top of having low plts and elevated INR. Plan: Follow CBC w/out diff intermittently, and transfuse if Hgb under 7 or if symptomatic and Hgb under 8, and plt transfuse if <10 or if bleeding and plt <50. March 11, 2023-currently stable no active bleeding at this time (8) Esophageal candidiasis Impression: During the EGD the general surgeon felt that he had a white coating on the esophagus consistent with candidal esophagitis. Fluconazole oral was started He completed a 7-day dose of fluconazole. (9) Alcohol abuse with withdrawal Withdrawal sx have RESOLVED CIWA protocol assessment was stopped Librium has been tapered down to off and was stopped on 03/05. I suspect he is lethargic and hypersomnolent from this ammonia elevation and from receiving benzos, that have not yet cleared his system -Resolved - Current Meds - Current Meds Current Meds: Current Medications Generic Name Dose Route Start Last Admin Trade Name Melissa PRN Reason Stop Dose Admin Ferrous Sulfate 325 mg 03/10/23 17:00 03/11/23 08:06 Ferrous Sulfate 325 Mg Tablet PO 325 mg BIDWM ANDREW Administration Lactulose 30 gm 03/11/23 13:00 03/11/23 12:57 Lactulose 10 Gm/15 Ml Bottle PO 30 gm QID ANDREW Administration Magnesium Oxide 400 mg 03/04/23 12:00 03/11/23 08:06 Magnesium Oxide 400 Mg Tablet PO 400 mg DAILYWM ANDREW Administration Nadolol 10 mg 03/03/23 09:00 03/11/23 08:10 Nadolol 20 Mg Tablet PO 10 mg DAILY ANDREW Administration Ondansetron HCl 4 mg 05/27/23 13:40 03/08/23 06:07 Ondansetron 4 Mg/2 Ml Vial IVP 4 mg Q6HR PRN Administration Nausea / Vomiting Pantoprazole Sodium 40 mg 02/28/23 11:00 03/11/23 08:06 Pantoprazole 40 Mg Tablet PO 40 mg BID ANDREW Administration Phytonadione 10 mg 03/11/23 09:00 03/11/23 08:06 Phytonadione 10 Mg/Ml Amp PO 03/14/23 05:00 10 mg DAILY ANDREW Administration Multivit/Folic Acid/Iron 1 tab 03/02/23 08:00 03/11/23 08:06 Vitamin Tablet PO 1 tab DAILYWM ANDREW Administration Sodium Chloride 10 ml 02/27/23 17:00 03/11/23 08:11 Sodium Chloride Flush 0.9% 10 Ml Syringe IVP 10 ml 0100,[id number],1700 ANDREW Administration Sodium Chloride 10 ml 02/27/23 13:40 02/28/23 19:40 Sodium Chloride Flush 0.9% 10 Ml Syringe IVP 10 ml PRN PRN Administration NEEDED PER PROVIDER ORDERS Spironolactone 25 mg 02/28/23 15:44 03/11/23 08:06 Spironolactone 25 Mg Tablet PO 25 mg DAILY ANDREW Administration Thiamine HCl 100 mg 03/01/23 09:00 03/11/23 08:06 Thiamine 100 Mg Tablet PO 100 mg DAILY ANDREW Administration Venlafaxine HCl 75 mg 03/08/23 09:00 03/11/23 08:06 Venlafaxine Er 75 Mg Capsule PO 75 mg DAILY ANDREW Administration - Lab Result Fish Bone Diagrams: 03/11/23 04:45 03/11/23 04:45 - Additional Planning My Orders: My Active Orders 03/10/23 17:00 Ferrous Sulfate [Feosol] 325 mg PO BIDWM 03/11/23 09:00 Phytonadione Inj (Adult) [Vitamin K (Adult)] 10 mg PO DAILY 03/12/23 05:00 AMMONIA [CHEM] DAILYLAB CBC - COMP BLD CT W/AUTO DIFF [HEME] DAILYLAB CMP [COMPREHENSIVE METABOLIC PANEL] [CHEM] DAILYLAB 03/12/23 09:00 Dexter Syrup 10 ml PO DAILY 03/13/23 05:00 AMMONIA [CHEM] DAILYLAB CBC - COMP BLD CT W/AUTO DIFF [HEME] DAILYLAB CMP [COMPREHENSIVE METABOLIC PANEL] [CHEM] DAILYLAB 03/14/23 05:00 AMMONIA [CHEM] DAILYLAB CBC - COMP BLD CT W/AUTO DIFF [HEME] DAILYLAB CMP [COMPREHENSIVE METABOLIC PANEL] [CHEM] DAILYLAB 03/15/23 05:00 AMMONIA [CHEM] DAILYLAB CBC - COMP BLD CT W/AUTO DIFF [HEME] DAILYLAB CMP [COMPREHENSIVE METABOLIC PANEL] [CHEM] DAILYLAB 03/16/23 05:00 AMMONIA [CHEM] DAILYLAB CBC - COMP BLD CT W/AUTO DIFF [HEME] DAILYLAB CMP [COMPREHENSIVE METABOLIC PANEL] [CHEM] DAILYLAB 03/17/23 05:00 CBC - COMP BLD CT W/AUTO DIFF [HEME] DAILYLAB CMP [COMPREHENSIVE METABOLIC PANEL] [CHEM] DAILYLAB Subjective - Subjective Patient Reports: Feeling Better Objective Vital Signs: Vital Signs - 24 hr 03/10/23 03/11/23 03/11/23 16:00 00:08 08:13 Temperature 36.8 C 36.5 C 36.5 C Heart Rate [ 81 80 82 Brachial] Respiratory 16 18 18 Rate Blood Pressure 116/70 104/65 99/56 L [Right Brachial artery] O2 Saturation 97 95 97 Oxygen O2 Source Room air I&O (Last 24 Hrs): Intake and Output Totals x24h 03/09/23 03/10/23 03/11/23 23:59 23:59 23:59 Intake Total 1238 858 480 Output Total 240 450 850 Balance 998 408 -370 General: Alert, Oriented x3 Neck: Supple Neuro: Alert Cardiovascular: Regular rate, Normal S1, Normal S2 Respiratory: Breath sounds nml - Results Results: Laboratory Results WBC 9.4 x10^3/uL (4.8-10.8) 03/11/23 04:45 RBC 2.60 10^6/uL (4.70-6.10) L 03/11/23 04:45 Hgb 7.5 g/dL (14.0-18.0) L 03/11/23 04:45 Hct 24.5 % (42.0-52.0) L 03/11/23 04:45 MCV 94.2 fL (80.0-94.0) H 03/11/23 04:45 MCH 28.8 pg (27.0-31.0) 03/11/23 04:45 MCHC 30.6 g/dL (32.0-36.0) L 03/11/23 04:45 RDW 22.7 % (12.0-15.0) H 03/11/23 04:45 Plt Count 145 10^3/uL (130-450) 03/11/23 04:45 MPV 9.8 fL (7.4-11.4) 03/11/23 04:45 Neut # (Auto) 5.1 10^3/uL (1.5-6.6) 03/11/23 04:45 Lymph # (Auto) 2.4 10^3/uL (1.5-3.5) 03/11/23 04:45 [place] # (Auto) 1.3 10^3/uL (0.0-1.0) H 03/11/23 04:45 Eos # (Auto) 0.5 10^3/uL (0.0-0.7) 03/11/23 04:45 Baso # (Auto) 0.1 10^3/uL (0.0-0.1) 03/11/23 04:45 Absolute Nucleated RBC 0.00 x10^3/uL 03/11/23 04:45 Total Counted 100 03/03/23 04:54 Band Neuts % (Manual) 1 % (0-10) 03/03/23 04:54 Abnorm Lymph % (Manual) 0 % 03/03/23 04:54 Nucleated RBC % 0.0 /100WBC 03/11/23 04:45 Neutrophils # (Manual) 6.9 10^3/uL (1.5-6.6) H 03/03/23 04:54 Lymphocytes # (Manual) 1.9 10^3/uL (1.5-3.5) 03/03/23 04:54 Monocytes # (Manual) 1.1 10^3/uL (0.0-1.0) H 03/03/23 04:54 Eosinophils # (Manual) 0.3 10^3/uL (0-0.7) 03/03/23 04:54 Basophils # (Manual) 0.2 10^3/uL (0-0.1) H 03/03/23 04:54 Differential Comment MANUAL DIFFERENTIAL 03/03/23 04:54 Manual Slide Review Indicated 03/11/23 04:45 WBC Morphology NORMAL APPEARANCE (NORMAL) 03/11/23 04:45 Platelet Estimate NORMAL (130-450,000) (NORMAL) 03/11/23 04:45 Platelet Morphology NORMAL APPEARANCE (NORMAL) 03/11/23 04:45 RBC Morph Micro Appear 2+ ANISOCYTOSIS (NORMAL) 2+ ACANTHOCYTES (NORMAL) 1+ HYPOCHROMASIA (NORMAL) 1+ SCHISTOCYTES (NORMAL) 03/11/23 04:45 RBC Morph Micro Appear 2+ ANISOCYTOSIS (NORMAL) 2+ ACANTHOCYTES (NORMAL) 1+ HYPOCHROMASIA (NORMAL) 1+ SCHISTOCYTES (NORMAL) 03/11/23 04:45 RBC Morph Micro Appear 2+ ANISOCYTOSIS (NORMAL) 2+ ACANTHOCYTES (NORMAL) 1+ HYPOCHROMASIA (NORMAL) 1+ SCHISTOCYTES (NORMAL) 03/11/23 04:45 RBC Morph Micro Appear 2+ ANISOCYTOSIS (NORMAL) 2+ ACANTHOCYTES (NORMAL) 1+ HYPOCHROMASIA (NORMAL) 1+ SCHISTOCYTES (NORMAL) 03/11/23 04:45 PT 25.5 secs (9.9-12.6) H 03/10/23 11:42 INR 2.4 (0.8-1.2) H 03/10/23 11:42 APTT 31.8 secs (24.9-33.3) 03/01/23 00:13 VBG pH 7.513 (7.31-7.41) H 03/02/23 01:42 Ionized Calcium 1.08 mmol/L (1.15-1.33) L 03/02/23 01:42 Sodium 136 mmol/L (135-145) 03/11/23 04:45 Potassium 4.2 mmol/L (3.5-5.0) 03/11/23 04:45 Chloride 104 mmol/L (101-111) 03/11/23 04:45 Carbon Dioxide 26 mmol/L (21-32) 03/11/23 04:45 Anion Gap 6.0 (6-13) 03/11/23 04:45 BUN 6 mg/dL (6-20) 03/11/23 04:45 Creatinine 0.6 mg/dL (0.6-1.2) 03/11/23 04:45 Estimated GFR (MDRD) 138 (>89) 03/11/23 04:45 Glucose 111 mg/dL (70-100) H 03/11/23 04:45 POC Whole Bld Glucose 113 mg/dL (70 - 100) H 02/27/23 23:26 Calcium 8.2 mg/dL (8.5-10.3) L 03/11/23 04:45 Phosphorus 2.5 mg/dL (2.5-4.6) 03/02/23 01:42 Magnesium 2.1 mg/dL (1.7-2.8) 03/07/23 04:52 Total Bilirubin 5.8 mg/dL (0.2-1.0) H 03/11/23 04:45 Direct Bilirubin 2.9 mg/dL (0.1-0.5) H 03/09/23 06:06 AST 55 IU/L (10-42) H 03/11/23 04:45 ALT 21 IU/L (10-60) 03/11/23 04:45 Alkaline Phosphatase 78 IU/L (42-121) 03/11/23 04:45 Ammonia 75.1 umol/L (7-35) H 03/11/23 08:58 Troponin I High Sens 13.5 ng/L (2.3-19.7) 02/27/23 13:43 B-Natriuretic Peptide 695 pg/mL (5-100) H 03/02/23 01:42 Total Protein 6.9 g/dL (6.7-8.2) 03/11/23 04:45 Albumin 1.8 g/dL (3.2-5.5) L 03/11/23 04:45 Globulin 5.1 g/dL (2.1-4.2) H 03/11/23 04:45 Albumin/Globulin Ratio 0.4 (1.0-2.2) L 03/11/23 04:45 Lipase 76 U/L (22-51) H 02/26/23 19:24 Urine Color BROWN 02/27/23 14:04 Urine Clarity CLEAR (CLEAR) 02/27/23 14:04 Urine pH 5.5 PH (5.0-7.5) 02/27/23 14:04 Ur Specific [place] 1.025 (1.002-1.030) 02/27/23 14:04 Urine Protein TRACE mg/dL (NEGATIVE) 02/27/23 14:04 Urine Glucose (UA) NEGATIVE mg/dL (NEGATIVE) 02/27/23 14:04 Urine Ketones TRACE mg/dL (NEGATIVE) 02/27/23 14:04 Urine Occult Blood NEGATIVE (NEGATIVE) 02/27/23 14:04 Urine Nitrite POSITIVE (NEGATIVE) H 02/27/23 14:04 Urine Bilirubin MODERATE (NEGATIVE) H 02/27/23 14:04 Urine Urobilinogen >=8.0 E.U./dL (NORMAL) H 02/27/23 14:04 Ur Leukocyte Esterase TRACE (NEGATIVE) H 02/27/23 14:04 Urine RBC 0-5 /HPF (0-5) 02/27/23 14:04 Urine WBC 0-3 /HPF (0-3) 02/27/23 14:04 Ur Squamous Epith Cells RARE Squamous (<= Few) 02/27/23 14:04 Urine Bacteria Few /HPF (None Seen) 02/27/23 14:04 Ur Microscopic Review INDICATED 02/27/23 14:04 Urine Culture Comments INDICATED 02/27/23 14:04 Nasal Screen MRSA (PCR) NEGATIVE (NEGATIVE) 02/27/23 14:04 Ethyl Alcohol 82.3 mg/dL 02/26/23 19:24 Blood Type O NEGATIVE 02/26/23 19:46 Blood Type Recheck O NEGATIVE 02/26/23 19:24 Antibody Screen NEGATIVE 02/26/23 19:46 Crossmatch IS Only See Detail 02/26/23 19:46
[2023-03-15] MEDS: PRENATAL VITAMIN TABLET PO SCH (08:56)
[2023-03-15] MEDS: nadoloL 20 MG TABLET PO SCH (08:56)
[2023-03-15] MEDS: FERROUS SULFATE 325 MG TABLET PO SCH ×2 (08:56→17:07)
[2023-03-15] MEDS: PANTOPRAZOLE 40 MG TABLET PO SCH ×2 (08:58→21:04)
[2023-03-15] MEDS: MAGNESIUM OXIDE 400 MG TABLET PO SCH (08:58)
[2023-03-15] MEDS: SPIRONOLACTONE 25 MG TABLET PO SCH (08:58)
[2023-03-15] MEDS: VENLAFAXINE ER 75 MG CAPSULE PO SCH (08:59)
[2023-03-15] MEDS: THIAMINE 100 MG TABLET PO SCH (08:59)
[2023-03-15] MEDS: SODIUM CHLORIDE FLUSH 0.9% 10 ML SYRINGE IVP SCH ×3 (09:00→23:47)
[2023-03-15] MEDS: LACTULOSE 10 GM/15 ML BOTTLE PO SCH ×3 (09:02→21:04)
--- NOTE | 2023-03-15 15:25 | PROVIDER PROGRESS NOTE ---
Assessment/Plan - Current Meds Current Meds: Current Medications Generic Name Dose Route Start Last Admin Trade Name Miguelq PRN Reason Stop Dose Admin Ferrous Sulfate 325 mg 03/10/23 17:00 03/15/23 08:56 Ferrous Sulfate 325 Mg Tablet PO 325 mg BIDWM ANDREW Administration Lactulose 30 gm 03/15/23 09:00 03/15/23 13:39 Lactulose 10 Gm/15 Ml Bottle PO 30 gm TID ANDREW Administration Magnesium Oxide 400 mg 03/04/23 12:00 03/15/23 08:58 Magnesium Oxide 400 Mg Tablet PO 400 mg DAILYWM ANDREW Administration Nadolol 10 mg 03/03/23 09:00 03/15/23 08:56 Nadolol 20 Mg Tablet PO 10 mg DAILY ANDREW Administration Ondansetron HCl 4 mg 02/27/23 13:40 03/08/23 06:07 Ondansetron 4 Mg/2 Ml Vial IVP 4 mg Q6HR PRN Administration Nausea / Vomiting Pantoprazole Sodium 40 mg 02/28/23 11:00 03/15/23 08:58 Pantoprazole 40 Mg Tablet PO 40 mg BID ANDREW Administration Multivit/Folic Acid/Iron 1 tab 03/02/23 08:00 03/15/23 08:56 Vitamin Tablet PO 1 tab DAILYWM ANDREW Administration Sodium Chloride 10 ml 02/27/23 17:00 03/15/23 09:00 Sodium Chloride Flush 0.9% 10 Ml Syringe IVP 10 ml 0100,0900,1700 ANDREW Administration Sodium Chloride 10 ml 02/27/23 13:40 03/13/23 21:04 Sodium Chloride Flush 0.9% 10 Ml Syringe IVP 10 ml PRN PRN Administration NEEDED PER PROVIDER ORDERS Spironolactone 25 mg 02/28/23 15:44 03/15/23 08:58 Spironolactone 25 Mg Tablet PO 25 mg DAILY ANDREW Administration Thiamine HCl 100 mg 03/01/23 09:00 03/15/23 08:59 Thiamine 100 Mg Tablet PO 100 mg DAILY ANDREW Administration Venlafaxine HCl 75 mg 03/08/23 09:00 03/15/23 08:59 Venlafaxine Er 75 Mg Capsule PO 75 mg DAILY ANDREW Administration - Lab Result Fish Bone Diagrams: 03/14/23 05:05 03/14/23 05:05 - Additional Planning My Orders: My Active Orders 03/15/23 09:00 Lactulose 30 gm PO TID Objective Vital Signs: Vital Signs - 24 hr 03/14/23 03/15/23 15:56 08:49 Temperature 36.9 C 36.9 C Heart Rate [ 85 88 Brachial] Respiratory 16 16 Rate Blood Pressure 113/72 112/70 [Right Brachial artery] O2 Saturation 96 94 Oxygen O2 Source Room air I&O (Last 24 Hrs): Intake and Output Totals x24h 03/13/23 03/14/23 03/15/23 23:59 23:59 23:59 Intake Total 1180 1729 470 Output Total 875 1100 950 Balance 305 629 -480 - Results Results: Laboratory Results WBC 8.1 x10^3/uL (4.8-10.8) 03/14/23 05:05 RBC 2.58 10^6/uL (4.70-6.10) L 03/14/23 05:05 Hgb 7.5 g/dL (14.0-18.0) L 03/14/23 05:05 Hct 24.6 % (42.0-52.0) L 03/14/23 05:05 MCV 95.3 fL (80.0-94.0) H 03/14/23 05:05 MCH 29.1 pg (27.0-31.0) 03/14/23 05:05 MCHC 30.5 g/dL (32.0-36.0) L 03/14/23 05:05 RDW 23.9 % (12.0-15.0) H 03/14/23 05:05 Plt Count 200 10^3/uL (130-450) 03/14/23 05:05 MPV 11.1 fL (7.4-11.4) 03/14/23 05:05 Neut # (Auto) 4.3 10^3/uL (1.5-6.6) 03/14/23 05:05 Lymph # (Auto) 2.3 10^3/uL (1.5-3.5) 03/14/23 05:05 [place] # (Auto) 1.0 10^3/uL (0.0-1.0) 03/14/23 05:05 Eos # (Auto) 0.4 10^3/uL (0.0-0.7) 03/14/23 05:05 Baso # (Auto) 0.1 10^3/uL (0.0-0.1) 03/14/23 05:05 Absolute Nucleated RBC 0.00 x10^3/uL 03/14/23 05:05 Total Counted 100 03/03/23 04:54 Band Neuts % (Manual) 1 % (0-10) 03/03/23 04:54 Abnorm Lymph % (Manual) 0 % 03/03/23 04:54 Nucleated RBC % 0.0 /100WBC 03/14/23 05:05 Neutrophils # (Manual) 6.9 10^3/uL (1.5-6.6) H 03/03/23 04:54 Lymphocytes # (Manual) 1.9 10^3/uL (1.5-3.5) 03/03/23 04:54 Monocytes # (Manual) 1.1 10^3/uL (0.0-1.0) H 03/03/23 04:54 Eosinophils # (Manual) 0.3 10^3/uL (0-0.7) 03/03/23 04:54 Basophils # (Manual) 0.2 10^3/uL (0-0.1) H 03/03/23 04:54 Differential Comment MANUAL DIFFERENTIAL 03/03/23 04:54 Manual Slide Review Indicated 03/14/23 05:05 WBC Morphology NORMAL APPEARANCE (NORMAL) 03/13/23 08:14 Platelet Estimate NORMAL (130-450,000) (NORMAL) 03/14/23 05:05 Platelet Morphology NORMAL APPEARANCE (NORMAL) 03/13/23 08:14 RBC Morph Micro Appear 2+ ANISOCYTOSIS (NORMAL) 1+ MACROCYTOSIS (NORMAL) 1+ MICROCYTOSIS (NORMAL) 1+ HYPOCHROMASIA (NORMAL) 1+ OVALOCYTES (NORMAL) 03/14/23 05:05 RBC Morph Micro Appear 2+ ANISOCYTOSIS (NORMAL) 1+ MACROCYTOSIS (NORMAL) 1+ MICROCYTOSIS (NORMAL) 1+ HYPOCHROMASIA (NORMAL) 1+ OVALOCYTES (NORMAL) 03/14/23 05:05 RBC Morph Micro Appear 2+ ANISOCYTOSIS (NORMAL) 1+ MACROCYTOSIS (NORMAL) 1+ MICROCYTOSIS (NORMAL) 1+ HYPOCHROMASIA (NORMAL) 1+ OVALOCYTES (NORMAL) 03/14/23 05:05 RBC Morph Micro Appear 2+ ANISOCYTOSIS (NORMAL) 1+ MACROCYTOSIS (NORMAL) 1+ MICROCYTOSIS (NORMAL) 1+ HYPOCHROMASIA (NORMAL) 1+ OVALOCYTES (NORMAL) 03/14/23 05:05 RBC Morph Micro Appear 2+ ANISOCYTOSIS (NORMAL) 1+ MACROCYTOSIS (NORMAL) 1+ MICROCYTOSIS (NORMAL) 1+ HYPOCHROMASIA (NORMAL) 1+ OVALOCYTES (NORMAL) 03/14/23 05:05 PT 25.5 secs (9.9-12.6) H 03/10/23 11:42 INR 2.4 (0.8-1.2) H 03/10/23 11:42 APTT 31.8 secs (24.9-33.3) 03/01/23 00:13 VBG pH 7.513 (7.31-7.41) H 03/02/23 01:42 Ionized Calcium 1.08 mmol/L (1.15-1.33) L 03/02/23 01:42 Sodium 136 mmol/L (135-145) 03/14/23 05:05 Potassium 4.0 mmol/L (3.5-5.0) 03/14/23 05:05 Chloride 105 mmol/L (101-111) 03/14/23 05:05 Carbon Dioxide 25 mmol/L (21-32) 03/14/23 05:05 Anion Gap 6.0 (6-13) 03/14/23 05:05 BUN 6 mg/dL (6-20) 03/14/23 05:05 Creatinine 0.5 mg/dL (0.6-1.2) L 03/14/23 05:05 Estimated GFR (MDRD) 170 (>89) 03/14/23 05:05 Glucose 92 mg/dL (70-100) 03/14/23 05:05 POC Whole Bld Glucose 113 mg/dL (70 - 100) H 02/27/23 23:26 Calcium 8.5 mg/dL (8.5-10.3) 03/14/23 05:05 Phosphorus 2.5 mg/dL (2.5-4.6) 03/02/23 01:42 Magnesium 2.1 mg/dL (1.7-2.8) 03/07/23 04:52 Total Bilirubin 7.0 mg/dL (0.2-1.0) H 03/14/23 05:05 Direct Bilirubin 2.9 mg/dL (0.1-0.5) H 03/09/23 06:06 AST 54 IU/L (10-42) H 03/14/23 05:05 ALT 20 IU/L (10-60) 03/14/23 05:05 Alkaline Phosphatase 80 IU/L (42-121) 03/14/23 05:05 Ammonia 42.3 umol/L (7-35) H 03/14/23 05:05 Troponin I High Sens 13.5 ng/L (2.3-19.7) 02/27/23 13:43 B-Natriuretic Peptide 695 pg/mL (5-100) H 03/02/23 01:42 Total Protein 7.1 g/dL (6.7-8.2) 03/14/23 05:05 Albumin 1.9 g/dL (3.2-5.5) L 03/14/23 05:05 Globulin 5.2 g/dL (2.1-4.2) H 03/14/23 05:05 Albumin/Globulin Ratio 0.4 (1.0-2.2) L 03/14/23 05:05 Lipase 76 U/L (22-51) H 02/26/23 19:24 Urine Color DARK YELLOW 03/13/23 14:50 Urine Clarity CLEAR (CLEAR) 03/13/23 14:50 Urine pH 5.5 PH (5.0-7.5) 03/13/23 14:50 Ur Specific [place] 1.025 (1.002-1.030) 03/13/23 14:50 Urine Protein NEGATIVE mg/dL (NEGATIVE) 03/13/23 14:50 Urine Glucose (UA) NEGATIVE mg/dL (NEGATIVE) 03/13/23 14:50 Urine Ketones NEGATIVE mg/dL (NEGATIVE) 03/13/23 14:50 Urine Occult Blood NEGATIVE (NEGATIVE) 03/13/23 14:50 Urine Nitrite NEGATIVE (NEGATIVE) 03/13/23 14:50 Urine Bilirubin MODERATE (NEGATIVE) H 03/13/23 14:50 Urine Urobilinogen 0.2 (NORMAL) E.U./dL (NORMAL) 03/13/23 14:50 Ur Leukocyte Esterase NEGATIVE (NEGATIVE) 03/13/23 14:50 Urine RBC 0-5 /HPF (0-5) 03/13/23 14:50 Urine WBC 6-10 /HPF (0-3) H 03/13/23 14:50 Ur Squamous Epith Cells FEW Squamous (<= Few) 03/13/23 14:50 Urine Crystals 6-10 Calcium Oxalate /LPF 03/13/23 14:50 Amorphous Sediment Moderate /LPF 03/13/23 14:50 Urine Bacteria Few /HPF (None Seen) 03/13/23 14:50 Urine Mucus Few Strands 03/13/23 14:50 Ur Microscopic Review INDICATED 02/27/23 14:04 Urine Culture Comments NOT INDICATED 03/13/23 14:50 Nasal Screen MRSA (PCR) NEGATIVE (NEGATIVE) 02/27/23 14:04 Ethyl Alcohol 82.3 mg/dL 02/26/23 19:24 Blood Type O NEGATIVE 02/26/23 19:46 Blood Type Recheck O NEGATIVE 02/26/23 19:24 Antibody Screen NEGATIVE 02/26/23 19:46 Crossmatch IS Only See Detail 02/26/23 19:46 ABX Reporting Has patient been on IV antibiotics over the past 48 hours?: No
--- NOTE | 2023-03-15 15:26 | PROVIDER PROGRESS NOTE ---
Progress Note Progress Note Patient was to be discharged today March 12 however this was held up since [facility] [place] is working on payment arrangements. Assessment/Plan - Problem List (2) Acute blood loss anemia Assessment/Plan: (6) Hyperammonemia Assessment/Plan: Assessment/Plan: All labs were reviewed. His ammonia level was 78>> 95>> 85>> 97>> 73 yesterday and there had been no BMs for 1.5 days. I increased his lactulose 10 TID with meals to 20 TID with meals yesterday and today the Ammonia is 103 and he is again lethargic Librium has been tapered down to off and has been stopped on 03/05. I suspect he is lethargic and hypersomnolent from this ammonia elevation and from receiving benzos that have not yet cleared his system Plan: Follow ammonia level daily We will continue with po Lactulose and titrate to 3 loose BMs/day max. March 09, 2023-be more aggressive with lactulose dosing in order to get several loose stools daily which she has not been having March 10, 2023-patient has had approximately 5 loose stools and is much more cogent today March 11, 2023-currently medically stable and awaiting SNF placement (2) Weakness Conclusion/Plan: He has been more lethargic for several days. A STAT brain MRI was done on 03/05 to evaluate for acute findings. This was negative. I also got a message that his niece Aspen Gould spoke to the patient's nurse and reported that over several years he has had increasing paranoia, auditory hallucinations, has "very high highs and very low lows". She said he is easily agitated and does not follow cues or answer questions. A psychiatry evaluation was questioned by that neice if it would be needed. I suspect he is lethargic and hypersomnolent from the ammonia elevation and also from receiving benzos that have not yet cleared his system On . being more awake, he admitted that he is depressed "because a friend did not visit him here" Plan: Continue to work with PT and OT when he is less somnolent. Plan will be to go to SNF for PT and OT rehab. SW to choice him Once his sensorium is more cleared, he may need a cognitive evaluation done by OT, and a TEST TECH eval for depression as well. 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 His liver appeared cirrhotic. He has an elevated INR , low platelets, elevated ammonia level and had elevated LFTs and bili is still up, consistent with liver disease. He had ascites on exam and got Lasix plus Spironoplactone, now is just on the Spironolactone. I asked him what his plan is for remaining off alcohol and he says just to quit it, and that he "has quit many times before", to which I then asked why he went back on alcohol, and he says it was from stress. On 03.07 being more awake, he admitted that he is depressed "because a friend did not visit him here". We discussed depression and anxiety. He had no SI. I started him on an SSRI on 03/07, explaining how they work, and he was interested. Plan: Continue daily Thiamine 100 mg p.o. Continue p.o. Spironolactone Continue working with PT and OT. SNF is recommended by therapists and he agreed. (4) Constipation Despite being on lactulose 20 g 3 times daily, his last BM was 2 days ago and it was a hard formed stool Plan: RN has asked him and he prefers to get a bisacodyl suppository (will order that now), and if that does not work then a saline enema prn March 09, 2023-Will increase dosing of lactulose to help with hyperammonemia as noted above along with his constipation (5) Elevated INR Conclusion/Plan: Secondary to liver disease. All labs were reviewed. He got FFP and vitamin K and INR went from 2.7 at admission >> 2.6>> 2.0>> 2.4>> 2.7>> 2.4 Plan: Will monitor INR intermittently for possible further need for FFP or vit K. -No need to monitor INR unless has some active bleeding. 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 His abdomen CT showed large distal esophageal varices. He was seen in consultation by general surgeon who did EGD, which showed esophageal varices from cirrhosis, but they were not bleeding. He was found to have friable esophagitis and gastritis, due either to batsheva or gastro-esophageal reflux along with his coagulopathy, and this combination caused his presenting symptoms. He was started on meds for gastritis and also antifungal and Sucralfate His diet has been advanced slowly and he is tolerating it, no nausea, no rebleeds I stopped the Sucralfate Plan: Follow CBC w/out diff intermittently Continue with Protonix BID. (7) Anemia Conclusion/Plan: Patient was transfused 4 units PRBC. All labs were reviewed. Hgb went from 3.9 at admission >> 7.6>> 8.3>> 7.5>> 8 and has been stable at 8 for 3 days Source of his anemia is GI bleed from his severe gastritis and esophagitis, on top of having low plts and elevated INR. Plan: Follow CBC w/out diff intermittently, and transfuse if Hgb under 7 or if symptomatic and Hgb under 8, and plt transfuse if <10 or if bleeding and plt <50. March 11, 2023-currently stable no active bleeding at this time (8) Esophageal candidiasis Impression: During the EGD the general surgeon felt that he had a white coating on the esophagus consistent with candidal esophagitis. Fluconazole oral was started He completed a 7-day dose of fluconazole. (9) Alcohol abuse with withdrawal Withdrawal sx have RESOLVED CIWA protocol assessment was stopped Librium has been tapered down to off and was stopped on 03/05. I suspect he is lethargic and hypersomnolent from this ammonia elevation and from receiving benzos, that have not yet cleared his system -Resolved Physical exam: Head: Normocephalic atraumatic Eyes: Icteric Mouth: No lesions Neck: Supple Chest: Clear to auscultation Cor: Regular rate and rhythm S1-S2 : Abdomen soft no tenderness some distention Extremities: No pedal edema Skin: Jaundiced Neuro: He is alert he is oriented x3 somewhat slow to answer questions however
[2023-03-15] MEDS ORDERED: LIDOCAINE PATCH 5% TOP PRN (16:55)
[2023-03-16] MEDS: LACTULOSE 10 GM/15 ML BOTTLE PO SCH (06:04)
[2023-03-16] MEDS: VENLAFAXINE ER 75 MG CAPSULE PO SCH (09:16)
[2023-03-16] MEDS: MAGNESIUM OXIDE 400 MG TABLET PO SCH (09:16)
[2023-03-16] MEDS: THIAMINE 100 MG TABLET PO SCH (09:16)
[2023-03-16] MEDS: SPIRONOLACTONE 25 MG TABLET PO SCH (09:16)
[2023-03-16] MEDS: PANTOPRAZOLE 40 MG TABLET PO SCH (09:17)
[2023-03-16] MEDS: FERROUS SULFATE 325 MG TABLET PO SCH (09:17)
[2023-03-16] MEDS: PRENATAL VITAMIN TABLET PO SCH (09:17)
[2023-03-16] MEDS: nadoloL 20 MG TABLET PO SCH (09:17)
[2023-03-16] MEDS: SODIUM CHLORIDE FLUSH 0.9% 10 ML SYRINGE IVP SCH (09:18)
--- NOTE | 2023-03-16 11:23 | Discharge Plan ---
"Discharge Plan for SNF / [facility] - Discharge Plan And Transition Orders Problem Reviewed?: Yes Disposition: 03 SNF DC/Xfer Condition: Fair Allergies and Adverse Reactions: Allergies Allergy/AdvReac Type Severity Reaction Status Date / Time amoxicillin Allergy Hives Verified 02/26/23 21:27 Health Concerns: Patient was admitted due to vomiting blood and history of alcohol abuse. He underwent upper endoscopy that showed non-bleeding esophageal varices and gastritis, which was the probable source of bleeding. He was put on medications to heal this. He also went through alcohol withdrawal. He was lethargic and confused whenever his ammonia level was elevated. Lactulose has been titrated to achieve loose BMs and keep the ammonia level down. He became deconditioned because of a long hospital stay. Plan of Treatment: Rehab potential exists and plan is for PT and OT for strengthening. Care Goals: Improvement in symptoms and stabilization are the goals. Assessment: Patient understands and is agreeable with the plan. - SNF / [facility] Transition Orders Admit to (Facility): [facility] Under the care of (Name): [facility] staff provider Discharge Diagnosis: (1) Alcohol abuse with withdrawal (2) Acute blood loss anemia (3) Gastrointestinal hemorrhage with hematemesis (4) Esophageal candidiasis During the EGD the general surgeon felt that he had a white coating on the esophagus consistent with candidal esophagitis. Fluconazole oral was started He completed a 7-day dose of fluconazole. (5) Liver disease due to alcohol (6) Elevated INR (7) Hyperammonemia (8) Weakness (9) Anxiety and depression Medicare Certification Statement: I certify that Post Hospital shelter care is medically necessary on a continuing basis for any of the conditions for which she/he is receiving care during hospitalization. Notify PCP of admission and forward orders to primary provider for signature. Weight on admission and: Weekly Call PCP immediately if weight increases by: 5 kg Other Notification Orders: Call PCP immediately if patient develops dyspnea, chest pain/tightness or edema. House Bowel Program: Yes Additional Bowel Program Orders: If no BM after 2 days, nurse may give M.O.M. 30ml PO PRN and/or ducolax Supp 1 OH and/or KATHY 250mg P.O., and/or senna 1-2 tabs PO. On day 3 nurse may give repeat above order until residents constipation is resolved. Annual Influenza Vaccine (between Jun 04 and January 01): Yes Two-step PPD per [employer] [id number] or approved exception documents: Yes Treatments & Other Orders: Daily PT and OT Lab Tests or X-ray Orders: Ammonia level every Wednesday Medication Orders: PLEASE REFER TO THE DISCHARGE MEDICATION LIST. Insulin Orders?: No - Medications New Prescriptions: Spironolactone [Aldactone] 25 mg PO DAILY #30 tab nadoloL [Corgard] 10 mg PO DAILY #30 tab Venlafaxine ER [Effexor ER] 75 mg PO DAILY #30 cap Ferrous Sulfate [Feosol] 325 mg PO BIDWM #60 tab Lactulose 30 gm PO QID 30 Days #120 each Magnesium Oxide [Mag Ox] 400 mg PO DAILYWM #30 tab Pnv No.121/Iron/Folic Acid [ Multivitamin Tablet] 1 each PO DAILY #30 tablet Pantoprazole [Protonix] 40 mg PO BID #60 tab Thiamine [Vitamin B-1] 100 mg PO DAILY #30 tab - Diet Type: No added salt Texture: Regular Liquids: Thin May have monthly special meal: Yes - Therapies | Activity Therapy: Evaluation | Treat if indicated: PT, OT Rehabilitation Potential: Maximize functional status Activity: Activity as Tolerated Weight Bearing: Full Weight Assistance Devices: Walker"
--- NOTE | 2023-03-16 11:32 | DISCHARGE SUMMARY ---
Discharge Summary Admit Date: 02/27/23 Discharge Date: 03/16/23 Discharging Provider: Dr Sara Kay Primary Care Provider: None Code Status: Attempt Resuscitation Condition at Discharge: Fair Discharge Disposition: SNF DC/Xfer Discharge Facility Name: [facility] History of Present Illness: This is a 57-year-old male with past medical history significant for alcohol dependence who drinks approximately a pint of rum daily sometimes more. He has quit and resumed alcohol abuse several times before. He presented to the emergency room with jaundice along with nausea, vomiting, intermittent vomiting of bright red blood, more recently over the past few days. He denies any abdominal pain. He does note that over the past several months his abdomen is getting more distended. He does admit to intermittent black tarry stools, but none recently was noted by him. He has never gone through alcohol withdrawal program nor has history of GI bleeding. He presented to the emergency room with complaints of feeling very weak. He has not seen a doctor for many years. Labs are significant for initial hemoglobin of 3.9 and he was transfused 4 units of PRBCs and repeat hemoglobin has improved to 7.6.Patient notes that his last drink was 2 days ago and his alcohol level in the emergency room was 88. INR is noted to be 2.7 with a PTT of 28.0, Lipase 76, albumin 2.0, total bilirubin 9.1, alkaline phosphatase 86, ALT 25, AST 67, platelets 139, total protein 7.2. He is being admitted to the ICU. - HOSPITAL COURSE Hospital Course: (1) Alcohol abuse with withdrawal The patient went through alcohol withdrawal, was on a CIWA protocol and required high doses of IV Ativan in the ICU. He was also started on Librium orally which then had a rapid taper to off because the Librium (plus his elevated Ammonia level) made him excessively lethargic. He was started on oral Thiamine and Multivitamin and discharged on these. (2) Acute blood loss anemia Hemoglobin at admission was 3.9. After 4 units transfused rapidly in the ER the hemoglobin improved to 7.6. He was also started on daily iron and the gastritis was treated. At discharge the hemoglobin was 7.5. He was discharged on daily oral iron. (3) Gastrointestinal hemorrhage with hematemesis The finding at EGD was gastritis. This was felt to be the source of his upper GI bleed. There were also esophageal varices, which were not bleeding at the time (4) Esophageal candidiasis During the EGD, there was a white coating on the esophagus, which the general surgeon felt was consistent with candidal esophagitis. Fluconazole oral was started. He completed a 7-day dose of fluconazole. (5) Liver disease due to alcohol His LFTs were elevated at admission and had a slow decline, off alcohol (AST/ALT 67/54>> 25/20 at discharge). Bilirubin was also very elevated 9.1>> 12 and he was icteric, which also slowly improved, and bili at diascharge was 7. He had a low platelet count of 82 and elevated INR of 2.7. He had ascites and was treated with Lasix then transitioned to Spironolactone and was discharged on that. Platelets at discharge were normal at 200. (6) Elevated INR INR at admission was 2.7. He did require treatment with FFP and vitamin K, given in the ER. His INR at discharge was 2.4. (7) Hyperammonemia Ammonia level at admission was 85. He was started on oral Lactulose. Despite this, he had many days with constipation and his Ammonia level tia to 101. Eventually we were able to titrate proper Lactulose dosing to achieve loose stools. Ammonia level before discharge was 42, but he was alert. (8) Weakness Patient was lethargic because of benzodiazepine treatment, and he was confused due to his hyperammonemia, which led to prolonged bedrest and hospital stay. He started to work with PT and OT. He was discharged to a SNF for further PT and OT. (9) Anxiety with depression The patient admitted that he was depressed because of having no friends or visitors. He also describes dealing with his anxiety by turning to alcohol abuse. He was offered an SSRI which was started while he was here, and he was discharged on Venlafaxine ER 75 mg daily. - ALLERGIES Allergies/Adverse Reactions: Allergies Allergy/AdvReac Type Severity Reaction Status Date / Time amoxicillin Allergy Hives Verified 02/26/23 21:27 - MEDICATIONS Home Medications: Ambulatory Orders Medication Instructions Recorded Confirmed Ferrous Sulfate [Feosol] 325 mg PO BIDWM #60 tab 03/12/23 Lactulose 30 gm PO QID 30 Days #120 each 03/12/23 Magnesium Oxide [Mag Ox] 400 mg PO DAILYWM #30 tab 03/12/23 Pantoprazole [Protonix] 40 mg PO BID #60 tab 03/12/23 Pnv No.121/Iron/Folic Acid 1 each PO DAILY #30 tablet 03/12/23 [ Multivitamin Tablet] Spironolactone [Aldactone] 25 mg PO DAILY #30 tab 03/12/23 Thiamine [Vitamin B-1] 100 mg PO DAILY #30 tab 03/12/23 Venlafaxine ER [Effexor ER] 75 mg PO DAILY #30 cap 03/12/23 nadoloL [Corgard] 10 mg PO DAILY #30 tab 03/12/23 - PHYSICAL EXAM AT DISCHARGE General Appearance: positive: No acute distress, Alert, Other (5 foot 3 male with BMI of 23, appears older than his age.) Eyes Bilateral: positive: EOMI, Other (Sclerae anicteric) ENT: positive: ENT inspection nml, No signs of dehydration Neck: positive: Nml inspection, No JVD Respiratory: positive: No respiratory distress, Breath sounds nml Cardiovascular: positive: Regular rate & rhythm, No murmur Abdomen: positive: Non-tender, Nml bowel sounds, Other (Minimal distention. Enlarged liver is palpable.) Skin: positive: Warm, Dry, Other (Skin anicteric) Extremities: positive: Non-tender, No pedal edema Neurologic/Psychiatric: positive: Oriented x3, Motor nml - LABS Result Diagrams: 03/14/23 05:05 03/14/23 05:05 - DIAGNOSTIC IMAGING Diagnostic Imaging Results: Final report reviewed - FOLLOW UP Follow Up: Patient needs to establish with a PCP after discharge from SNF. - TIME SPENT Time Spent in Discharge (Minutes): 50
[2023-03-16 13:28] VITALS: BP 114/69
== END 2023-03-16 13:32 | DRG 368 ==
LOC: ED 18:57 → ICU 02-27 13:40 → MS2 03-03 15:57
PROVIDERS: ADMIT Specialist; ATTEND Internal Medicine
PROC: 30233N1 Transfusion of Nonautologous Red Blood Cells into Peripheral Vein, Percutaneous Approach (ICD-10-PCS; 2023-02-27)
PROC: 0DB58ZX Excision of Esophagus, Via Natural or Artificial Opening Endoscopic, Diagnostic (ICD-10-PCS; principal; 2023-02-28 08:30)
DX: K21.01 Gastro-esophageal reflux disease with esophagitis, with bleeding (principal); K22.11 Ulcer of esophagus with bleeding; K29.21 Alcoholic gastritis with bleeding; B37.81 Candidal esophagitis; F10.239 Alcohol dependence with withdrawal, unspecified; D62 Acute posthemorrhagic anemia; E72.4 Disorders of ornithine metabolism; D68.8 Other specified coagulation defects; Y90.4 Blood alcohol level of 80-99 mg/100 ml; E83.42 Hypomagnesemia; E87.6 Hypokalemia; K70.31 Alcoholic cirrhosis of liver with ascites; F41.8 Other specified anxiety disorders; K70.11 Alcoholic hepatitis with ascites; K70.9 Alcoholic liver disease, unspecified; R53.1 Weakness; D69.6 Thrombocytopenia, unspecified; R40.0 Somnolence; T42.4X5A Adverse effect of benzodiazepines, initial encounter; Y92.230 Patient room in hospital as the place of occurrence of the external cause; K59.00 Constipation, unspecified
CPT/HCPCS: 36415; 36430; 70551; 74177; 80048; 80053; 80076; 80320; 81001; 81003; 82140; 82330; 83690; 83735; 83880; 84100; 84132; 84484; 85014; 85018; 85025; 85027; 85049; 85610; 85730; 86850; 86900; 86901; 86920; 87086; 87150; 93005; 93306; 96365; 96366; 96367; 96368; 96375; 97116; 97161; 97166; 97530; 97535; 99285; A9270; J2060; J2354; J3411; J7040; P9016; P9017; Q9967

== ENCOUNTER 2023-03-16 13:30 | Outpatient (CLI) | payer MEDICAID | END 2023-03-16 23:59 | LOC: EMS 13:30 | PROVIDERS: ATTEND Urology | DX: R41.0 Disorientation, unspecified (principal); R53.1 Weakness; Z74.01 Bed confinement status | CPT/HCPCS: A0425; A0428 ==

== ENCOUNTER 2023-04-15 13:02 | Outpatient (CLI) | payer MEDICAID | END 2023-04-15 13:03 | disposition home or self-care (01) | LOC: LAB.R 13:02 | PROVIDERS: ATTEND Registered Nurse | DX: K70.0 Alcoholic fatty liver (principal); K70.31 Alcoholic cirrhosis of liver with ascites | CPT/HCPCS: 82140 ==

== ENCOUNTER 2023-04-22 00:14 | Outpatient (CLI) | payer MEDICAID | END 2023-04-22 23:59 | disposition critical access hospital (66) | LOC: EMS 00:14 | DX: R41.82 Altered mental status, unspecified (principal); D64.9 Anemia, unspecified; E87.5 Hyperkalemia; R11.2 Nausea with vomiting, unspecified; R19.7 Diarrhea, unspecified | CPT/HCPCS: A0425; A0429; A0999 ==

== ENCOUNTER 2023-04-22 03:02 | Outpatient (CLI) | payer MEDICAID | END 2023-04-22 23:59 | disposition short-term general hospital (02) | LOC: EMS 03:02 | PROVIDERS: ATTEND Emergency Medicine | DX: K70.31 Alcoholic cirrhosis of liver with ascites (principal); N17.9 Acute kidney failure, unspecified; D64.9 Anemia, unspecified; E87.5 Hyperkalemia | CPT/HCPCS: A0425; A0426 ==